=== PATIENT | female | born 1990 | race American Indian/Alaskan Native ===

== ENCOUNTER 2018-08-21 15:59 | Emergency (ER) | payer MEDICAID, OTHER ==
[2018-08-21 16:13] VITALS: BP 145/79
[2018-08-21 17:21] LABS: Hematocrit 23.7 % (30.3-42.9); Hemoglobin 7.1 gm/dl (10.1-14.3); Mean Corpuscular HGB Conc 30 % (30-34); Platelet Count 338 K/mm3 (140-440); Red Blood Count 3.81 M/mm3 (3.65-5.03)
[2018-08-21 17:25] LABS: Mean Corpuscular Volume 62 fl (79-97)
== END 2018-08-21 20:30 | disposition left against medical advice (07) ==
LOC: ED 15:59
DX: D75.9 Disease of blood and blood-forming organs, unspecified (principal); Z53.21 Procedure and treatment not carried out due to patient leaving prior to being seen by health care provider
CPT/HCPCS: 36415; 84703; 85027; 86850; 86900; 86901

== ENCOUNTER 2018-08-25 16:06 | Observation (INO) | payer MEDICAID ==
--- NOTE | 2018-08-25 16:44 | Emergency Department Report ---
Blank Doc - Documentation Documentation: This is a 28-year-old female that presents with dizziness, weakness, and vaginal bleeding for 6 months. This initial assessment/diagnostic orders/clinical plan/treatment(s) is/are subject to change based on patient's health status, clinical progression and re- assessment by fellow clinical providers in the ED. Further treatment and workup at subsequent clinical providers discretion. Patient/guardians urged not to elope from the ED as their condition may be serious if not clinically assessed and managed. Initial orders include: 1- Patient sent to [facility] for further evaluation and treatment 2- labs
[2018-08-25 18:00] LABS: Basophils % (Auto) 0.6 % (0.0-1.8); Eosinophils # (Auto) 0.1 K/mm3 (0.0-0.4); Eosinophils % (Auto) 1.9 % (0.0-4.3); Hematocrit 23.9 % (30.3-42.9); Hemoglobin 7.1 gm/dl (10.1-14.3); Lymphocytes # (Auto) 2.1 K/mm3 (1.2-5.4); Lymphocytes % (Auto) 42.4 % (13.4-35.0); Mean Corpuscular HGB Conc 30 % (30-34); Monocytes # (Auto) 0.5 K/mm3 (0.0-0.8); Monocytes % (Auto) 10.3 % (0.0-7.3); Platelet Count 262 K/mm3 (140-440); Red Blood Count 3.79 M/mm3 (3.65-5.03)
[2018-08-25 18:08] LABS: Mean Corpuscular Volume 63 fl (79-97); Red Cell Distribution Width 21.6 % (13.2-15.2)
[2018-08-25 18:27] LABS: BUN/Creatinine Ratio 9; Blood Urea Nitrogen 7 mg/dL (7-17); Calcium 8.4 mg/dL (8.4-10.2); Hemolysis Index 0
[2018-08-25 18:28] LABS: Alanine Aminotransferase 14 units/L (7-56); Albumin 3.8 g/dL (3.9-5)
[2018-08-25 18:31] LABS: Bilirubin,Direct < 0.2 mg/dL (0-0.2)
[2018-08-25 18:32] LABS: Bacteria,Urine 1+ /HPF (Negative); Bilirubin,Urine NEG (Negative); Blood,Urine NEG (Negative); Color,Urine Yellow (Yellow); Mucus,Urine 2+ /HPF; Protein,Urine <15 mg/dL mg/dL (Negative)
[2018-08-25] MEDS ORDERED: MAXIPIME/NS 2 GM/100 ML 2 GM/100 ML BAG IV ONE ×2 (19:54→20:58)
--- NOTE | 2018-08-25 19:55 | Emergency Department Report ---
ED General Adult HPI - General Chief complaint: Weakness Stated complaint: SICK Time Seen by Provider: 08/25/18 16:43 Source: patient Mode of arrival: Ambulatory Limitations: No Limitations - History of Present Illness Initial comments: Patient is a 28-year-old female that is emergency room with worsening dizziness and weakness. Patient states she has anemia due to bleeding for 6 months. Patient states she had transfusion 1 month ago. Patient states she feels lightheaded and dizzy as well as weak. Patient states her symptoms started worsening today. Patient states her bleeding increased today. Patient states she has not seen an SEARCH MARKETING SPECIALIST yet for this. Patient denies pain. Patient denies headache. Patient denies abdominal pain. Patient denies other complaints except for dysuria. Patient states she's had dysuria for 2 days. Patient soha es vaginal discharge. Patient denie fever and chills. Patient states she is going more frequently and it butler when she urinates. -: Sudden Consistency: intermittent Improves with: rest Worsens with: movement Associated Symptoms: weakness. denies: confusion, chest pain, cough, diaphoresis, fever/chills, headaches, loss of appetite, malaise, nausea/vomiting, rash, seizure, shortness of breath, syncope - Related Data Allergies Allergy/AdvReac Type Severity Reaction Status Date / Time No Known Allergies Allergy Unverified 08/21/18 16:02 ED Review of Systems ROS: Stated complaint: SICK Other details as noted in HPI Constitutional: denies: chills, fever Eyes: denies: eye pain, eye discharge, vision change ENT: denies: ear pain, throat pain Respiratory: denies: cough, shortness of breath, wheezing Cardiovascular: denies: chest pain, palpitations Endocrine: no symptoms reported Gastrointestinal: denies: abdominal pain, nausea, diarrhea Genitourinary: denies: urgency, dysuria, discharge Musculoskeletal: denies: back pain, joint swelling, arthralgia Skin: denies: rash, lesions Neurological: as per HPI, weakness. denies: headache, paresthesias Psychiatric: denies: anxiety, depression Hematological/Lymphatic: denies: easy bleeding, easy bruising ED Past Medical Hx - Past Medical History Previous Medical History?: Yes Additional medical history: anemia with transfusion. - Surgical History Past Surgical History?: No - Family History Family history: no significant - Social History Smoking Status: Current Every Day Smoker Substance Use Type: None ED Physical Exam - General Limitations: No Limitations General appearance: alert, in no apparent distress - Head Head exam: Present: atraumatic, normocephalic - Eye Eye exam: Present: normal appearance, PERRL, other (scleral pallor noted) Pupils: Present: normal accommodation - ENT ENT exam: Present: mucous membranes moist - Neck Neck exam: Present: normal inspection - Respiratory Respiratory exam: Present: normal lung sounds bilaterally. Absent: respiratory distress - Cardiovascular Cardiovascular Exam: Present: regular rate, normal rhythm. Absent: systolic murmur, diastolic murmur, rubs, gallop - GI/Abdominal GI/Abdominal exam: Present: soft, normal bowel sounds - Extremities Exam Extremities exam: Present: normal inspection - Back Exam Back exam: Present: normal inspection - Neurological Exam Neurological exam: Present: alert, oriented X3 - Psychiatric Psychiatric exam: Present: normal affect, normal mood - Skin Skin exam: Present: warm, dry, intact, normal color. Absent: rash ED Course Vital Signs 08/25/18 08/25/18 16:43 19:00 Temperature 98 F Pulse Rate 101 H Respiratory 18 19 Rate Blood Pressure 148/79 O2 Sat by Pulse 100 99 Oximetry - Consultations Consultation #1: SEARCH MARKETING SPECIALIST paged. 08/25/18 20:[address] Andino. . Dr. Andino to admit patient 08/25/18 20:22 ED Medical Decision Making - Lab Data Result diagrams: 08/25/18 17:20 08/25/18 17:20 - Medical Decision Making is a 28-year-old female that presents emergency room with chronic vaginal bleeding and worsening dizziness and weakness. Patient found be tachycardic and anemic. Patient given 1 unit of packed red blood cells. Patient was admitted to the SEARCH MARKETING SPECIALIST service. Accepting physician is Dr. Andino. - Differential Diagnosis vaginal bleeding. Anemia. Critical Care Time: Yes Critical care attestation.: If time is entered above; I have spent that time in minutes in the direct care of this critically ill patient, excluding procedure time. Critical Care Time: 35 minutes ED Disposition Clinical Impression: Severe anemia, Vaginal bleeding, Dysuria, Weakness, Dizziness, Tachycardia Anemia Qualifiers: Anemia type: unspecified type Qualified Code(s): D64.9 - Anemia, unspecified UTI (urinary tract infection) Qualifiers: Urinary tract infection type: acute cystitis Hematuria presence: with hematuria Qualified Code(s): N30.01 - Acute cystitis with hematuria Disposition: -09 OP ADMIT IP TO THIS HOSP Is pt being admited?: Yes Does the pt Need Aspirin: No Condition: Critical Time of Disposition: 20:38
[2018-08-25] MEDS ORDERED: NACL 0.9% 500 ML 500 ML IV ONE (20:22)
[2018-08-25] MEDS ORDERED: COLACE PO PRN (20:24)
[2018-08-25] MEDS ORDERED: TYLENOL PO ONE (20:28)
[2018-08-25] MEDS ORDERED: BENADRYL PO ONE ×2 (20:28→21:00)
[2018-08-25] MEDS ORDERED: TYLENOL ONE (20:58)
--- NOTE | 2018-08-25 21:07 | History and Physical Report ---
History of Present Illness Date of examination: 08/25/18 Date of admission: 08/25/18 20:25 Chief complaint: Dizziness and blurry vision, excessive and frequent irregular menstruation History of present illness: This is a 28 year old female, with a history excessive and frequent irregular menstruation since menarche at the age of 11. She states she's was bleeding x 7months that stopped 2weeks ago. No bleeding now. She received 2uPRBC in [place] ~2months ago for a hgb of 6. She was scheduled to be evaluated by a axle bearing polisher in [place] however she recently moved here. She presented to the ED with dizziness and blurry vision. She was found to have a hgb 7.1. She admitted now per ED MD request for PRBC transfusion Past History Past Medical History: other (sickle cell traint, anemia and PRBC transfusion, abnormal pap 2006, last pap 2018 normal. No h/o STD, using condoms to prevent ) Past Surgical History: No surgical history Social history: smoking Medications and Allergies Allergies Allergy/AdvReac Type Severity Reaction Status Date / Time No Known Allergies Allergy Unverified 08/21/18 16:02 Active Meds: Active Medications Docusate Sodium (Colace) 100 mg PO Q12H PRN PRN Reason: Constipation Multivitamins/Iron/Calcium ( Vitamin) 1 each PO QDAY VY Review of Systems All systems: negative Genitourinary Female: dysuria Exam - Constitutional Vitals: Temp Pulse Resp BP Pulse Ox 98 F 101 H 19 148/79 99 08/25/18 16:43 08/25/18 16:43 08/25/18 19:00 08/25/18 16:43 08/25/18 19:00 Results - Labs CBC & Chem 7: 08/25/18 17:20 08/25/18 17:20 Labs: Abnormal lab results 08/25/18 08/25/18 08/25/18 Range/Units 17:20 17:20 17:20 Hgb 7.1 L (10.1-14.3) gm/dl Hct 23.9 L (30.3-42.9) % MCV 63 L (79-97) fl MCH 19 L (28-32) pg RDW 21.6 H (13.2-15.2) % Lymph % (Auto) 42.4 H (13.4-35.0) % Kern % (Auto) 10.3 H (0.0-7.3) % Glucose 102 H (65-100) mg/dL Albumin (3.9-5) g/dL Urine WBC (Auto) (0.0-6.0) /HPF Crossmatch See Detail 08/25/18 08/25/18 Range/Units 17:20 17:59 Hgb (10.1-14.3) gm/dl Hct (30.3-42.9) % MCV (79-97) fl MCH (28-32) pg RDW (13.2-15.2) % Lymph % (Auto) (13.4-35.0) % Kern % (Auto) (0.0-7.3) % Glucose (65-100) mg/dL Albumin 3.8 L (3.9-5) g/dL Urine WBC (Auto) 24.0 H (0.0-6.0) /HPF Crossmatch Assessment and Plan - Patient Problems (1) Anemia Current Visit: Yes Status: Chronic Qualifiers: Iron deficiency anemia type: chronic blood loss Qualified Code(s): D64.9 - Anemia, unspecified Plan to address problem: Symptomatic Admitted now for PRBC transfusion Kellie ANDREA request (2) Dizziness Current Visit: Yes Status: Acute (3) Dysuria Current Visit: Yes Status: Acute (4) Excessive and frequent menstruation with irregular cycle Current Visit: Yes Status: Chronic Plan to address problem: Encouraged her to f/u with axle bearing polisher for evaluation (5) Morbid obesity Current Visit: Yes Status: Chronic
[2018-08-26] MEDS ORDERED: NACL 0.9% 500 ML 500 ML ONE (01:18)
--- NOTE | 2018-08-26 07:49 | Discharge Summary ---
Providers - Providers Date of Admission: 08/25/18 20:25 Date of discharge: 08/26/18 (pt agrees with d/c) Attending physician: LUIS MIGUEL SANCHEZ [facility] Reason for admission: prolong vaginal bleeding; anemia Condition: Good Procedures: Blood transfusion X 1 unit Hospital course: uncomplicated Disposition: DC-01 TO HOME OR SELFCARE Core Measure Documentation - Palliative Care Palliative Care/ Comfort Measures: Not Applicable - Core Measures Any of the following diagnoses?: none - VTE Discharge Requirements Deep Vein Thrombosis/Pulmonary Embolism Present on Admission: No Has pt received <5 days of overlap therapy or INR<2.0: No Anticoagulant overlap therapy prescribed at discharge: No Contraindication No Overlap Therapy order at DC: Not Indicated - Acute DC Discharge Requirements Aspirin at discharge: No Reason for no aspirin on DC: Medical contraindication KAITLYNN/ARB for LVSD if EF <40%: Not Applicable Reason for no KAITLYNN/ARB: Medical contraindication Beta nazario at discharge: No Reason for no beta nazario on DC: Medical contraindication Statin for LDL = or >100 mg/dl on DC: Not Applicable Reason for no statin on DC: Medical contraindication Exam - Constitutional Vitals: Temp Pulse Resp BP Pulse Ox 97.7 F 78 20 107/66 100 08/26/18 05:00 08/26/18 05:15 08/26/18 05:00 08/26/18 05:15 08/26/18 05:15 General appearance: Present: no acute distress, well-nourished - EENT Eyes: Present: PERRL ENT: hearing intact, clear oral mucosa - Neck Neck: Present: supple, normal ROM - Respiratory Respiratory effort: normal Respiratory: bilateral: CTA - Cardiovascular Heart Sounds: Present: S1 & S2. Absent: rub, click - Extremities Extremities: pulses symmetrical, No edema Peripheral Pulses: within normal limits - Abdominal General gastrointestinal: Present: soft, non-tender, non-distended, normal bowel sounds Female genitourinary: Present: normal - Rectal Rectal Exam: deferred - Integumentary Integumentary: Present: clear, warm, dry - Musculoskeletal Musculoskeletal: gait normal, strength equal bilaterally - Psychiatric Psychiatric: appropriate mood/affect, intact judgment & insight - Neurologic Neurologic: CNII-XII intact, moves all extremities Plan Activity: advance as tolerated Weight Bearing Status: Weight Bear as Tolerated Diet: regular, advance as tolerated Special Instructions: no heavy lifting Follow up with: SUNI KENNYSTOCKTON MD MADDY [Primary Care Provider] - 7 Days LUIS MIGUEL SANCHEZ MD [Staff Physician] - 7 Days (Call [phone] to schedule appointment for follow up)
[2018-08-26 09:52] LABS: Hematocrit 24.8 % (30.3-42.9); Hemoglobin 7.5 gm/dl (10.1-14.3)
[2018-08-26] MEDS ORDERED: BACTRIM DS PO SCH (10:00)
[2018-08-26] MEDS ORDERED: PRENATAL VITAMIN PO SCH (10:00)
[2018-08-26 10:06] VITALS: BP 110/70
== END 2018-08-26 10:00 | disposition home or self-care (01) ==
LOC: ED 16:06 → OB 20:25
PROVIDERS: ADMIT Obstetrics & Gynecology; ATTEND Obstetrics & Gynecology
DX: D64.9 Anemia, unspecified (principal); N92.1 Excessive and frequent menstruation with irregular cycle; R42 Dizziness and giddiness; R30.0 Dysuria; E66.01 Morbid (severe) obesity due to excess calories; F17.200 Nicotine dependence, unspecified, uncomplicated; Z79.899 Other long term (current) drug therapy
CPT/HCPCS: 36415; 36430; 80048; 80076; 81001; 83690; 84703; 85014; 85018; 85025; 86850; 86900; 86901; 86920; 87076; 87086; 87186; 96365; 99291; G0378; J0692; J7040; P9016

== ENCOUNTER 2019-01-29 11:20 | Emergency (ER) | payer MEDICAID ==
[2019-01-29 11:29] VITALS: BP 111/65
[2019-01-29 11:49] LABS: HCG Qualitative,Urine Negative (Negative)
[2019-01-29] MEDS ORDERED: BUTALB/ACETAMINOPHEN/CAFFEINE TAB PO ONE (12:35)
--- NOTE | 2019-01-29 13:17 | Emergency Department Report ---
ED General Adult HPI - General Chief complaint: Headache Stated complaint: HEAD PAIN Time Seen by Provider: 01/29/19 12:20 Source: patient Mode of arrival: Ambulatory Limitations: No Limitations - History of Present Illness Initial comments: Patient is a 28-year-old female who presents with headache that occurred today patient states the headache is severe its located in the middle of her head nothing makes the headache better nothing makes it worse. Patient denies having any nausea or vomiting. Patient states that she has not been able to get much sleep because of the headache. Severity scale (0 -10): 10 - Related Data Previous Rx's Medication Instructions Recorded Last Taken Type Butalb/Acetaminophen/Caffeine 1 cap PO Q8HR PRN #24 cap 01/29/19 Unknown Rx [Fioricet 50-300-40 mg CAP] Allergies Allergy/AdvReac Type Severity Reaction Status Date / Time No Known Allergies Allergy Unverified 08/21/18 16:02 ED Review of Systems ROS: Stated complaint: HEAD PAIN Other details as noted in HPI Constitutional: denies: chills, fever Eyes: denies: eye pain, eye discharge, vision change ENT: denies: ear pain, throat pain Respiratory: denies: cough, shortness of breath, wheezing Cardiovascular: denies: chest pain, palpitations Endocrine: no symptoms reported Gastrointestinal: denies: abdominal pain, nausea, diarrhea Genitourinary: denies: urgency, dysuria, discharge Musculoskeletal: denies: back pain, joint swelling, arthralgia Skin: denies: rash, lesions Neurological: headache. denies: weakness, paresthesias Psychiatric: denies: anxiety, depression Hematological/Lymphatic: denies: easy bleeding, easy bruising ED Past Medical Hx - Past Medical History Hx Hypertension: Yes Additional medical history: anemia with transfusion. - Surgical History Past Surgical History?: No - Social History Smoking Status: Current Every Day Smoker Substance Use Type: Alcohol - Medications Home Medications: Home Medications Medication Instructions Recorded Confirmed Last Taken Type Butalb/Acetaminophen/Caffeine 1 cap PO Q8HR PRN #24 cap 01/29/19 Unknown Rx [Fioricet 50-300-40 mg CAP] ED Physical Exam - General Limitations: No Limitations General appearance: alert, in no apparent distress - Head Head exam: Present: atraumatic, normocephalic - Eye Eye exam: Present: normal appearance - ENT ENT exam: Present: mucous membranes moist - Neck Neck exam: Present: normal inspection - Respiratory Respiratory exam: Present: normal lung sounds bilaterally. Absent: respiratory distress - Cardiovascular Cardiovascular Exam: Present: regular rate, normal rhythm. Absent: systolic murmur, diastolic murmur, rubs, gallop - GI/Abdominal GI/Abdominal exam: Present: soft, normal bowel sounds - Extremities Exam Extremities exam: Present: normal inspection - Back Exam Back exam: Present: normal inspection - Neurological Exam Neurological exam: Present: alert, oriented X3 - Psychiatric Psychiatric exam: Present: normal affect, normal mood - Skin Skin exam: Present: warm, dry, intact, normal color. Absent: rash ED Course Vital Signs 01/29/19 01/29/19 11:22 11:30 Temperature 100.4 F H Pulse Rate 112 H Respiratory 15 Rate Blood Pressure 111/65 O2 Sat by Pulse 98 Oximetry ED Medical Decision Making - Medical Decision Making Medical diagnosis: Tension headache Differential medical diagnosis: Migraine headache, cluster headache I will give patient oral Fioricet and will reevaluate the patient. Patient is feeling better after the Fioricet I will discharge patient home with Fioricet. Patient agrees with plan additional verbal discharge instructions were given. Critical care attestation.: If time is entered above; I have spent that time in minutes in the direct care of this critically ill patient, excluding procedure time. ED Disposition Clinical Impression: Tension headache Disposition: DC-01 TO HOME OR SELFCARE Is pt being admited?: No Does the pt Need Aspirin: No Condition: Stable Instructions: Tension Headache (ED) Prescriptions: Butalb/Acetaminophen/Caffeine [Fioricet 50-300-40 mg CAP] 1 cap PO Q8HR PRN #24 cap PRN Reason: Headache Forms: Accompanied Note
== END 2019-01-29 14:04 | disposition home or self-care (01) ==
LOC: ED 11:20
DX: G44.209 Tension-type headache, unspecified, not intractable (principal); I10 Essential (primary) hypertension; F17.200 Nicotine dependence, unspecified, uncomplicated
CPT/HCPCS: 81025

== ENCOUNTER 2019-02-01 00:49 | Emergency (ER) | payer MEDICAID ==
[2019-02-01] MEDS ORDERED: diphenhydrAMINE 25 MG CAP PO ONE (03:02)
[2019-02-01] MEDS ORDERED: KETOROLAC 30 MG/1 ML INJ IM ONE (03:02)
[2019-02-01] MEDS ORDERED: BUTALB/ACETAMINOPHEN/CAFFEINE TAB PO ONE (03:02)
--- NOTE | 2019-02-01 05:29 | Emergency Department Report ---
ED Headache HPI - General Chief Complaint: Headache Stated Complaint: CONFUSED W/HEADACHE POSS FEVER Source: patient Exam Limitations: no limitations - History of Present Illness Initial Comments: Patient is a 28-year-old -[place] female with no past medical history presents to the ED with complaint of acute onset persistent frontal headache with pressure, nasal and sinus congestion and dry cough for the last 1 week. Patient denies dizziness, sore throat, nausea, vomiting, chest pain, shortness of breath, change in vision, syncope, seizures, neck pain, fever and chills or abdominal pain, dysuria or urinary frequency and urgency. Patient was treated for the same about 3 days ago and has been taking hydrocodone for the same with no relief. Timing/Duration: 1 week Quality: severe, sharp Head Injury Location: frontal Recent Head Trauma: no recent headache/trauma Associated Symptoms: denies symptoms, nasal congestion, nasal drainage, sinus infection. denies: confusion, fatigue, fever/chills, flushing, loss of consciousness, nausea/vomiting, numbness in legs/feet, seizures, stiff neck, vision changes, weakness Allergies/Adverse Reactions: Allergies No Known Allergies Allergy (Unverified 08/21/18 16:02) Home Medications: Ambulatory Orders Butalb/Acetaminophen/Caffeine [Fioricet 50-300-40 mg CAP] 1 cap PO Q8HR PRN #24 cap 01/29/19 Amoxicillin [Trimox CAP] 500 mg PO Q8H #30 capsule 02/01/19 Butalb/Acetamin/Caff 50-325-40 [Fioricet 50-325-40] 1 tab PO Q6HR PRN #15 tab 02/01/19 Ketorolac [Toradol] 10 mg PO Q8H PRN #20 tablet 02/01/19 Ondansetron [Zofran Odt] 4 mg PO Q6HR PRN #15 tab.rapdis 02/01/19 ED Review of Systems ROS: Stated complaint: CONFUSED W/HEADACHE POSS FEVER Other details as noted in HPI Constitutional: denies: chills, fever Eyes: denies: eye pain, eye discharge, vision change ENT: congestion. denies: ear pain, throat pain Respiratory: cough. denies: shortness of breath, wheezing Cardiovascular: denies: chest pain, palpitations Endocrine: no symptoms reported Gastrointestinal: denies: abdominal pain, nausea, diarrhea Genitourinary: denies: urgency, dysuria, discharge Musculoskeletal: denies: back pain, joint swelling, arthralgia Skin: denies: rash, lesions Neurological: headache. denies: weakness, paresthesias Psychiatric: denies: anxiety, depression Hematological/Lymphatic: denies: easy bleeding, easy bruising ED Past Medical Hx - Past Medical History Previous Medical History?: Yes Hx Hypertension: Yes Additional medical history: anemia with transfusion. - Surgical History Past Surgical History?: No - Social History Smoking Status: Current Every Day Smoker Substance Use Type: None - Medications Home Medications: Home Medications Medication Instructions Recorded Confirmed Last Taken Type Butalb/Acetaminophen/Caffeine 1 cap PO Q8HR PRN #24 cap 01/29/19 Unknown Rx [Fioricet 50-300-40 mg CAP] Amoxicillin [Trimox CAP] 500 mg PO Q8H #30 capsule 02/01/19 Unknown Rx Butalb/Acetamin/Caff 50-325-40 1 tab PO Q6HR PRN #15 tab 02/01/19 Unknown Rx [Fioricet 50-325-40] Ketorolac [Toradol] 10 mg PO Q8H PRN #20 tablet 02/01/19 Unknown Rx Ondansetron [Zofran Odt] 4 mg PO Q6HR PRN #15 tab.rapdis 02/01/19 Unknown Rx ED Physical Exam - General Limitations: No Limitations General appearance: alert, in no apparent distress - Head Head exam: Present: atraumatic, normocephalic, normal inspection - Eye Eye exam: Present: normal appearance, PERRL, EOMI Pupils: Present: normal accommodation - ENT ENT exam: Present: normal orophraynx, mucous membranes moist, TM's normal bilaterally, normal external ear exam, other (grossly congested nasal passages; palpable frontal sinus tenderness) - Neck Neck exam: Present: normal inspection, full ROM - Respiratory Respiratory exam: Present: normal lung sounds bilaterally. Absent: respiratory distress, wheezes, rales, rhonchi - Cardiovascular Cardiovascular Exam: Present: regular rate, normal rhythm, normal heart sounds. Absent: systolic murmur, diastolic murmur, rubs, gallop - GI/Abdominal GI/Abdominal exam: Present: soft, normal bowel sounds. Absent: tenderness, guarding, hyperactive bowel sounds - Extremities Exam Extremities exam: Present: normal inspection, full ROM, normal capillary refill - Back Exam Back exam: Present: normal inspection, full ROM. Absent: muscle spasm, paraspinal tenderness, vertebral tenderness - Neurological Exam Neurological exam: Present: alert, oriented X3, CN II-XII intact, normal gait, reflexes normal - Psychiatric Psychiatric exam: Present: normal affect, normal mood - Skin Skin exam: Present: warm, dry, intact, normal color. Absent: rash ED Course Vital Signs 02/01/19 02/01/19 02/01/19 01:17 03:30 03:31 Temperature 99.4 F Pulse Rate 100 H Respiratory 18 20 20 Rate Blood Pressure 128/83 O2 Sat by Pulse 99 Oximetry - Reevaluation(s) Reevaluation #1: 02/01/19 05:30 This is a 28-year-old female who presented to the ED with persistent frontal sinus headache with nasal and sinus congestion. In the ED, a shunt is alert and oriented 3 and is not in distress, appears groggy and sleeping the physical exam. Patient was treated for headache and on reevaluation, patient's headache improved significantly with medications although the patient has been sleeping throughout her ED stay. Patient was discharged home on antibiotics and pain medications and advised to follow-up with her primary care physician in 7-10 days for reevaluation or return to the ED immediately if symptoms get worse ED Medical Decision Making - Medical Decision Making This is a 28-year-old female who presented to the ED with persistent frontal sinus headache with nasal and sinus congestion. In the ED, a shunt is alert and oriented 3 and is not in distress, appears groggy and sleeping the physical exam. Patient was treated for headache and on reevaluation, patient's headache improved significantly with medications although the patient has been sleeping throughout her ED stay. Patient was discharged home on antibiotics and pain medications and advised to follow-up with her primary care physician in 7-10 days for reevaluation or return to the ED immediately if symptoms get worse - Differential Diagnosis sinusitis; sinus headache, acute URI; Viral illness Critical care attestation.: If time is entered above; I have spent that time in minutes in the direct care of this critically ill patient, excluding procedure time. ED Disposition Clinical Impression: Sinus headache Acute frontal sinusitis Qualifiers: Recurrence: non-recurrent Qualified Code(s): J01.10 - Acute frontal sinusitis, unspecified Disposition: CT- TO HOME OR SELFCARE Is pt being admited?: No Does the pt Need Aspirin: No Condition: Stable Instructions: Acute Bacterial Rhinosinusitis (ED), Acute Headache (ED) Additional Instructions: Take medication with food, drink plenty of fluids and follow-up with your primary care physician in 5-7 days for reevaluation. Return to the ED immediately if symptoms get worse. Prescriptions: Butalb/Acetamin/Caff 50-325-40 [Fioricet 50-325-40] 1 tab PO Q6HR PRN #15 tab PRN Reason: Headache Ketorolac [Toradol] 10 mg PO Q8H PRN #20 tablet PRN Reason: Pain Amoxicillin [Trimox CAP] 500 mg PO Q8H #30 capsule Ondansetron [Zofran Odt] 4 mg PO Q6HR PRN #15 tab.rapdis PRN Reason: Nausea Referrals: PRIMARY CARE, [Primary Care Provider] - 3-5 Days Time of Disposition: 05:26 Print Language: SLOVENIAN
[2019-02-01 06:52] VITALS: BP 129/79
== END 2019-02-01 06:00 | disposition home or self-care (01) ==
LOC: ED 00:49
DX: J01.10 Acute frontal sinusitis, unspecified (principal); I10 Essential (primary) hypertension; F17.200 Nicotine dependence, unspecified, uncomplicated; Z79.899 Other long term (current) drug therapy
CPT/HCPCS: 96372; 99282; J1885

== ENCOUNTER 2019-06-21 17:39 | Inpatient (IN) | payer MEDICAID, OTHER ==
[2019-06-21 20:24] LABS: Basophils % (Auto) 0.5 % (0.0-1.8); Eosinophils # (Auto) 0.1 K/mm3 (0.0-0.4); Eosinophils % (Auto) 2.2 % (0.0-4.3); Hematocrit 40.6 % (30.3-42.9); Hemoglobin 13.3 gm/dl (10.1-14.3); Lymphocytes # (Auto) 2.1 K/mm3 (1.2-5.4); Lymphocytes % (Auto) 47.5 % (13.4-35.0); Mean Corpuscular HGB Conc 33 % (30-34); Mean Corpuscular Volume 77 fl (79-97); Monocytes # (Auto) 0.5 K/mm3 (0.0-0.8); Monocytes % (Auto) 10.1 % (0.0-7.3); Platelet Count 267 K/mm3 (140-440); Red Blood Count 5.26 M/mm3 (3.65-5.03)
[2019-06-21 20:25] LABS: Red Cell Distribution Width 20.1 % (13.2-15.2)
[2019-06-21 20:36] LABS: INR 0.96 (0.87-1.13); Partial Thromboplastin Time 34.3 Sec. (24.2-36.6)
[2019-06-21 20:44] LABS: Alanine Aminotransferase 11 units/L (7-56); Albumin 4.2 g/dL (3.9-5); BUN/Creatinine Ratio 18; Blood Urea Nitrogen 11 mg/dL (7-17); Calcium 9.6 mg/dL (8.4-10.2); Hemolysis Index 40
--- NOTE | 2019-06-21 22:25 | Emergency Department Report ---
<VIRGINIA OSMAN - Last Filed: 06/21/19 22:19> ED General Adult HPI - General Chief complaint: Neuro Symptoms/Deficit Stated complaint: VISUAL DISTURBANCE Time Seen by Provider: 06/21/19 18:49 Source: patient, EMS Mode of arrival: Stretcher Limitations: No Limitations - History of Present Illness Initial comments: Patient presents to the emergency department with a chief complaint of left hearing loss and left blurry vision. 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 Patient states while she was in the coma she had an acute stroke and bilateral blood clots of the lungs. Patient states she is off of her anticoagulation due to not having a follow-up since returning from [place]. Patient states that 3 weeks ago she went to [place] to get rehab and was staying with family but that did not work out well. Patient states she was seen at [facility] and had negative MRIs and CTs of the head that only showed the previous stroke. Patient states that after her coma she had decreased vision in both of her eyes but her vision improved and this morning she woke up with blurry vision in the left eye. Patient states that her hearing also decreased in the left ear today. She states that she has had issues with hearing since waking up from the coma but today the vision in her left ear is definitely worse than normal. -: Sudden Severity scale (0 -10): 0 Consistency: constant Improves with: none Worsens with: none Associated Symptoms: denies other symptoms Treatments Prior to Arrival: none - Related Data Home Medications Medication Instructions Recorded Confirmed Last Taken AtorvaSTATin [Lipitor] 40 mg PO QHS 06/21/19 06/21/19 Unknown Ferrous Sulfate [Iron 325 MG] 325 mg PO QDAY 06/21/19 06/21/19 Unknown amLODIPine [Norvasc] 10 mg PO DAILY 06/21/19 06/21/19 Unknown carvediloL [Coreg] 12.5 mg PO BID 06/21/19 06/21/19 Unknown Allergies Allergy/AdvReac Type Severity Reaction Status Date / Time No Known Allergies Allergy Unverified 08/21/18 16:02 ED Review of Systems Constitutional: denies: chills, fever Eyes: vision change. denies: eye pain, eye discharge ENT: denies: ear pain, throat pain Respiratory: denies: cough, shortness of breath, wheezing Cardiovascular: denies: chest pain, palpitations Endocrine: no symptoms reported Gastrointestinal: denies: abdominal pain, nausea, diarrhea Genitourinary: denies: urgency, dysuria, discharge Musculoskeletal: denies: back pain, joint swelling, arthralgia Skin: denies: rash, lesions Neurological: denies: headache, weakness, paresthesias Psychiatric: denies: anxiety, depression Hematological/Lymphatic: denies: easy bleeding, easy bruising ED Past Medical Hx - Past Medical History Previous Medical History?: Yes Hx Hypertension: Yes Additional medical history: anemia with transfusion. - Social History Smoking Status: Former Smoker Substance Use Type: None - Medications Home Medications: Home Medications Medication Instructions Recorded Confirmed Last Taken Type AtorvaSTATin [Lipitor] 40 mg PO QHS 06/21/19 06/21/19 Unknown History Ferrous Sulfate [Iron 325 MG] 325 mg PO QDAY 06/21/19 06/21/19 Unknown History amLODIPine [Norvasc] 10 mg PO DAILY 06/21/19 06/21/19 Unknown History carvediloL [Coreg] 12.5 mg PO BID 06/21/19 06/21/19 Unknown History ED Physical Exam - General Limitations: No Limitations General appearance: alert, in no apparent distress - Head Head exam: Present: atraumatic, normocephalic - Eye Eye exam: Present: normal appearance, PERRL, EOMI - ENT ENT exam: Present: mucous membranes moist, other (Tracheostomy scar of the neck) - Neck Neck exam: Present: normal inspection - Respiratory Respiratory exam: Present: normal lung sounds bilaterally. Absent: respiratory distress - Cardiovascular Cardiovascular Exam: Present: regular rate, normal rhythm. Absent: systolic murmur, diastolic murmur, rubs, gallop - GI/Abdominal GI/Abdominal exam: Present: soft, normal bowel sounds. Absent: distended, tenderness - Extremities Exam Extremities exam: Present: normal inspection - Back Exam Back exam: Present: normal inspection - Neurological Exam Neurological exam: Present: alert, oriented X3, CN II-XII intact. Absent: motor sensory deficit - Psychiatric Psychiatric exam: Present: normal affect, normal mood - Skin Skin exam: Present: warm, dry, intact, normal color. Absent: rash ED Medical Decision Making - Lab Data Result diagrams: 06/21/19 20:06 06/21/19 20:06 ED Disposition Clinical Impression: Vision blurred CVA (cerebral vascular accident) Qualifiers: CVA mechanism: unspecified Qualified Code(s): I63.9 - Cerebral infarction, unspecified Disposition: DC-09 OP ADMIT IP TO THIS HOSP Condition: Stable <DEB LOVE - Last Filed: 06/22/19 00:32> ED Review of Systems ROS: Stated complaint: VISUAL DISTURBANCE Other details as noted in HPI ED Course Vital Signs 06/21/19 06/21/19 06/21/19 18:25 19:40 20:00 Temperature 97.8 F 98.3 F Pulse Rate 77 73 72 Respiratory 13 12 15 Rate Blood Pressure 118/66 119/72 Blood Pressure 119/72 [Left] O2 Sat by Pulse 98 99 99 Oximetry 06/21/19 06/21/19 06/21/19 21:00 23:00 23:30 Temperature Pulse Rate 73 79 Respiratory 12 18 17 Rate Blood Pressure 115/73 112/64 112/64 Blood Pressure [Left] O2 Sat by Pulse 99 99 98 Oximetry - Reevaluation(s) Reevaluation #1: 06/22/19 00:27 - NIHSS Assessment Interval: Baseline 1a. Level of Consciousness: alert/keenly responsive 1b. LOC Questions: answers both correctly 1c. LOC Commands: performs tasks correctly 2. Best Gaze: normal 3. Visual: no visual loss 4. Facial Palsy: partial paralysis 5b. Motor Arm Right: no drift 5a. Motor Arm Left: no drift 6a. Motor Leg Left: no drift 6b. Motor Leg Right: drift 7. Limb Ataxia: absent 8. Sensory: normal 9. Best Language: no aphasia 10. Dysarthria: mild/moderate dysarthria 11. Extinction/Inattention: no abnormality Total Score: 4 Stroke Severity: Minor Stroke ED Medical Decision Making - Lab Data Result diagrams: 06/21/19 20:06 06/21/19 20:06 Lab Results 06/21/19 06/21/19 06/21/19 Range/Units 20:06 20:06 20:06 WBC 4.5 (4.5-11.0) K/mm3 RBC 5.26 H (3.65-5.03) M/mm3 Hgb 13.3 (10.1-14.3) gm/dl Hct 40.6 (30.3-42.9) % MCV 77 L (79-97) fl MCH 25 L (28-32) pg MCHC 33 (30-34) % RDW 20.1 H (13.2-15.2) % Plt Count 267 (140-440) K/mm3 Lymph % (Auto) 47.5 H (13.4-35.0) % [place]ink[place] % (Auto) 10.1 H (0.0-7.3) % Eos % (Auto) 2.2 (0.0-4.3) % Baso % (Auto) 0.5 (0.0-1.8) % Lymph # 2.1 (1.2-5.4) K/mm3 Winkler # 0.5 (0.0-0.8) K/mm3 Eos # 0.1 (0.0-0.4) K/mm3 Baso # 0.0 (0.0-0.1) K/mm3 Seg Neutrophils % 39.7 L (40.0-70.0) % Seg Neutrophils # 1.8 (1.8-7.7) K/mm3 PT 12.9 (12.2-14.9) Sec. INR 0.96 (0.87-1.13) APTT 34.3 (24.2-36.6) Sec. Sodium 142 (137-145) mmol/L Potassium 4.5 (3.6-5.0) mmol/L Chloride 104.1 (98-107) mmol/L Carbon Dioxide 25 (22-30) mmol/L Anion Gap 17 mmol/L BUN 11 (7-17) mg/dL Creatinine 0.6 L (0.7-1.2) mg/dL Estimated GFR > 60 ml/min BUN/Creatinine Ratio 18 % Glucose 92 (65-100) mg/dL Calcium 9.6 (8.4-10.2) mg/dL Total Bilirubin 0.40 (0.1-1.2) mg/dL AST 15 (5-40) units/L ALT 11 (7-56) units/L Alkaline Phosphatase 77 (35-129) units/L Total Protein 7.2 (6.3-8.2) g/dL Albumin 4.2 (3.9-5) g/dL Albumin/Globulin Ratio 1.4 % HCG, Quant (0-4) mIU/mL 06/21/19 Range/Units 20:19 WBC (4.5-11.0) K/mm3 RBC (3.65-5.03) M/mm3 Hgb (10.1-14.3) gm/dl Hct (30.3-42.9) % MCV (79-97) fl MCH (28-32) pg MCHC (30-34) % RDW (13.2-15.2) % Plt Count (140-440) K/mm3 Lymph % (Auto) (13.4-35.0) % Winkler % (Auto) (0.0-7.3) % Eos % (Auto) (0.0-4.3) % Baso % (Auto) (0.0-1.8) % Lymph # (1.2-5.4) K/mm3 Winkler # (0.0-0.8) K/mm3 Eos # (0.0-0.4) K/mm3 Baso # (0.0-0.1) K/mm3 Seg Neutrophils % (40.0-70.0) % Seg Neutrophils # (1.8-7.7) K/mm3 PT (12.2-14.9) Sec. INR (0.87-1.13) APTT (24.2-36.6) Sec. Sodium (137-145) mmol/L Potassium (3.6-5.0) mmol/L Chloride (98-107) mmol/L Carbon Dioxide (22-30) mmol/L Anion Gap mmol/L BUN (7-17) mg/dL Creatinine (0.7-1.2) mg/dL Estimated GFR ml/min BUN/Creatinine Ratio % Glucose (65-100) mg/dL Calcium (8.4-10.2) mg/dL Total Bilirubin (0.1-1.2) mg/dL AST (5-40) units/L ALT (7-56) units/L Alkaline Phosphatase (35-129) units/L Total Protein (6.3-8.2) g/dL Albumin (3.9-5) g/dL Albumin/Globulin Ratio % HCG, Quant < 2 (0-4) mIU/mL - Radiology Data CT HEAD WITHOUT CONTRAST INDICATION: visual issues. TECHNIQUE: All CT scans at this location are performed using CT dose reduction for ALARA by means of automated exposure control. COMPARISON: None available. FINDINGS: HEMORRHAGE: None. EXTRA-AXIAL SPACES: Normal in size and morphology for the patient's age. VENTRICULAR SYSTEM: Normal in size and morphology for the patient's age. BRAIN PARENCHYMA: No acute findings. MIDLINE SHIFT OR HERNIATION: None. ORBITS: Normal as visualized. SOFT TISSUES OF HEAD: Normal. CALVARIUM: Normal. VISUALIZED PARANASAL SINUSES AND MASTOID AIR CELLS: Clear. ADDITIONAL FINDINGS: None. IMPRESSION: 1. No acute intracranial abnormality. Signer Name: Saurabh Tapia MD Signed: 06/21/2019 10:35 PM Workstation Name: [id number] HEAD CT ANGIOGRAM HISTORY: Visual disturbance. Hearing loss. FINDINGS: Contrast-enhanced CT angiographic images of the intracranial circulation were obtained. In addition to the axial images, sagittal and coronal reformatted images were obtained. In addition, 3 plane MIP reconstructions were produced. There is no evidence of abnormality. Normal vascular contours are associated with arterial structures at the level of the skull base and [place] of [place]. There is no evidence of vessel occlusion or malformation. IMPRESSION: No significant abnormality. All CT scans at this location are performed using dose reduction to ALARA by means of automated exposure control. Signer Name: Santiago Malcolm MD Signed: 06/21/2019 11:37 PM Workstation Name: [id number] Patient: ROOPA WAITE R#: [id number] : 1990 Acct:[id number] Age/Sex: 28 / F ADM Date: 06/21/19 Loc: ED Attending Dr: Ordering Physician: VIRGINIA OSMAN MD Date of Service: 06/21/19 Procedure(s): CT angio neck Accession Number(s): [id number] cc: VIRGINIA OSMAN MD NECK CT ANGIOGRAM 06/21/2019 HISTORY: Visual disturbance and hearing loss. FINDINGS: Contrast-enhanced CT angiographic images of the neck were obtained. In addition to the axial images, sagittal and coronal reformatted images were obtained. In addition, 3 plane MIP reconstructions were produced. NASCET like criteria were used in this evaluation. There is no evidence of carotid bifurcation stenosis or abnormality. Normal contours are associated with common and internal carotid arteries bilaterally. Vertebral artery contours are unremarkable. Visualized portions of the aortic arch demonstrate no evidence of abnormality. IMPRESSION: No significant abnormality. All CT scans at this location are performed using dose reduction to ALARA by means of automated exposure control. 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 Patient is been not compliant with her Eliquis secondary to not having adequate follow-up. Patient is presenting with worsening of her left eyes vision. Jessie ent also has some decreased hearing and a left-sided headache. Patient states that her vision and hearing had began to improve after the CVA over the last several weeks however worsened upon waking. Our neurologist have seen the patient and suggest that the patient be admitted in observation status for MRI Critical care attestation.: If time is entered above; I have spent that time in minutes in the direct care of this critically ill patient, excluding procedure time. ED Disposition Is pt being admited?: Yes Does the pt Need Aspirin: No Time of Disposition: 00:32
--- NOTE | 2019-06-21 22:39 | Cat Scan Report ---
CT HEAD WITHOUT CONTRAST INDICATION: visual issues. TECHNIQUE: All CT scans at this location are performed using CT dose reduction for ALARA by means of automated e xposure control. COMPARISON: None available. FINDINGS: HEMORRHAGE: None. EXTRA-AXIAL SPACES: Normal in size and morphology for the patient's age. VENTRICULAR SYSTEM: Normal in size and morphology for the patient's age. BRAIN PARENCHYMA: No acute findings. MIDLINE SHIFT OR HERNIATION: None. ORBITS: Normal as visualized. SOFT TISSUES OF HEAD: Normal. CALVARIUM: Normal. VISUALIZED PARANASAL SINUSES AND MASTOID AIR CELLS: Clear. ADDITIONAL FINDINGS: None. IMPRESSION: 1. No acute intracranial abnormality. Signer Name: Saurabh Tapia MD Signed: 06/21/2019 10:35 PM Workstation Name: [id number]
--- NOTE | 2019-06-21 23:41 | Cat Scan Report ---
HEAD CT ANGIOGRAM HISTORY: Visual disturbance. Hearing loss. FINDINGS: Contrast-enhanced CT angiographic images of the intracranial circulation were obtained. In addition to the axial images, sagittal and coronal reformatted images were obtained. In addition, 3 p hermila MIP reconstructions were produced. There is no evidence of abnormality. Normal vascular contours are associated with arterial structures at the level of the skull base and [place] of [place]. There is no evidence of vessel occlusion or malformation. IMPRESSION: No significant abnormality. All CT scans at this location are performed using dose reduction to ALARA by means of automated expos ure control. Signer Name: Santiago Malcolm MD Signed: 06/21/2019 11:37 PM Workstation Name: [id number]
--- NOTE | 2019-06-21 23:44 | Cat Scan Report ---
NECK CT ANGIOGRAM 06/21/2019 HISTORY: Visual disturbance and hearing loss. FINDINGS: Contrast-enhanced CT angiographic images of the neck were obtained. In addition to the axia l images, sagittal and coronal reformatted images were obtained. In addition, 3 plane MIP reconstruct ions were produced. NASCET like criteria were used in this evaluation. There is no evidence of carotid bifurcation stenosis or abnormality. Normal contours are associated w ith common and internal carotid arteries bilaterally. Vertebral artery contours are unremarkable. Visualized portions of the aortic arch demonstrate no evidence of abnormality. IMPRESSION: No significant abnormality. All CT scans at this location are performed using dose reduction to ALARA by means of automated expos ure control. Signer Name: Santiago Malcolm MD Signed: 06/21/2019 11:39 PM Workstation Name: [id number]
--- NOTE | 2019-06-21 23:49 | Emergency Department Report ---
ED Neuro Deficit HPI - General Chief Complaint: Neuro Symptoms/Deficit Stated Complaint: VISUAL DISTURBANCE Time Seen by Provider: 06/21/19 18:49 Source: patient, EMS Mode of arrival: Stretcher Limitations: No Limitations - History of Present Illness Initial Comments: [facility] TeleNeurology Consult Services STAT The patient was informed the neurology consult would happen via TeleHealth by way of interactive audio and visual telecommunications and consented to receiving care in this manner DATE: June 21, 2019 Impression: The patient is having worsening of symptoms she experienced in her prolonged hospitalization this winter where she had presumed multiple strokes secondary to pulmonary emboli and hypercoagulability. Unfortunately significant details aren't known this sounds like there was some swelling potentially in the posterior fossa. She's been off all blood thinners. Start her on aspirin and she'll need MRI of the brain without contrast. It would be helpful to obtain the records from her prior hospitalization to determine if it was solely stroke or alternate diagnosis as well in terms of the brain infection. Could've been a provoked stroke given the oral contraception that she was on presumably they did a hypercoagulable panel at that time. Would not resume full anticoagulation until a repeat MRI of the brain can be obtained to determine whether or not she had a new ischemic stroke will follow up official read on CT angiogram head and neck. Exam is not consistent with a new large vessel occlusion. Consult inpatient neurology to follow Check fasting lipid panel and hemoglobin A1c physical and occupational therapy evaluation Discussed with primary team CC: left eye blindness dboule vision lefft eye vision loss History of Present Illness: The patient is a complicated young 28-year-old woman who had an extensive hospitalization in January 2019 to April 2019. She apparently was in a coma and suffered some strokes at that time along with bilateral PEs. There is also question of some sort of infection. She is a smoker and was on control at that time. She was supposed to remain on full anticoagulation but has not been compliant she's not had any follow-up with neurology. Two weeks ago she haed a MCKEON and was seen at the [facility] and they did an MRI of her brain but she did not have any new focal complaints at that time. Today she presented for symptoms with waking up with blurry vision in the left eye this morning. He also feels like the hearing is worse on the left side compared to normal. No other infectious symptoms. These are similar to symptoms she had with her stroke but not to this degree. Also has some chronic right-sided weakness from the stroke. She sees double vision also along with this Diagnostic Testing: CT of the head without contrast no acute changes Vital Signs: Temperature is 97.8 respirations 13 pulse 77 blood pressure 118/66 Exam: Mental Status: Awake, alert, oriented Naming: Intact Repetition: Intact Speech: fluent Cranial Nerves:rightfacial droop Pupils: Equal round and reactive to light Extraocular movements: Intact in all cardinal gaze Ptosis: The right eye is slightly wider in opening in the left Visual cortez:she can still see things in the center of her left vision but its blurry in the left eye even in central vision with limited peripheral cortez in the left eye seems to be intact in the right eye she does see some horizontal diplopia with both eyes open hearing in left ear very imparied absent Facial sensation: Intact to pin and light touch Facial movements: right facial droop Motor Exam: drift in RLE right hand finger extensors and putter in weak Sensory Exam: Light touch: Intact Pinprick: Intact Coordination: Finger to nose: Intact Heel to kessler: Intact NIH =2 for right facial droop, RLE drifft=1, there is vision loss not in typ ical homonymous pattern however. mid slurred speech =1 total =4 Medical Decision Making: - Extensive number of diagnosis or management options are considered above. - Extensive amount of complex data reviewed. - High risk of complication and/or morbidity or mortality are associated with differential diagnostic considerations above. - There may be uncertain outcome and increased probability of prolonged functional impairment or high probability of severe prolonged functional impairment associated with some of these differential diagnosis. Medical Data Reviewed: 1.Data reviewed include clinical labs, radiology, Medical Tests; 2.Tests results discussed w/performing or interpreting physician; 3.Obtaining/reviewing old medical records; 4.Obtaining case history from another source; 5.Independent review of image, tracing or specimen. Patient was informed the Neurology Consult would happen via telehealth (remote video) and consented to receiving care in this manner. - Related Data Allergies/Adverse Reactions: Allergies Allergy/AdvReac Type Severity Reaction Status Date / Time No Known Allergies Allergy Unverified 08/21/18 16:02 ED Review of Systems ROS: Stated complaint: VISUAL DISTURBANCE Other details as noted in HPI Constitutional: denies: chills, fever Eyes: vision change. denies: eye pain, eye discharge ENT: denies: ear pain, throat pain Respiratory: denies: cough, shortness of breath, wheezing Cardiovascular: denies: chest pain, palpitations Endocrine: no symptoms reported Gastrointestinal: denies: abdominal pain, nausea, diarrhea Genitourinary: denies: urgency, dysuria, discharge Musculoskeletal: denies: back pain, joint swelling, arthralgia Skin: denies: rash, lesions Neurological: denies: headache, weakness, paresthesias Psychiatric: denies: anxiety, depression Hematological/Lymphatic: denies: easy bleeding, easy bruising ED Past Medical Hx - Past Medical History Previous Medical History?: Yes Hx Hypertension: Yes Additional medical history: anemia with transfusion. - Social History Smoking Status: Former Smoker Substance Use Type: None ED Neuro Physical Exam - General Limitations: No Limitations General appearance: alert, in no apparent distress Suspected Stroke: Yes - NIHSS Assessment Interval: Baseline 1a. Level of Consciousness: alert/keenly responsive 1b. LOC Questions: answers both correctly 1c. LOC Commands: performs tasks correctly 2. Best Gaze: normal 3. Visual: no visual loss 4. Facial Palsy: partial paralysis 5b. Motor Arm Right: no drift 5a. Motor Arm Left: no drift 6a. Motor Leg Left: no drift 6b. Motor Leg Right: drift 7. Limb Ataxia: absent 8. Sensory: normal 9. Best Language: no aphasia 10. Dysarthria: mild/moderate dysarthria 11. Extinction/Inattention: no abnormality Total Score: 4 Stroke Severity: Minor Stroke ED Course Vital Signs 06/21/19 06/21/19 18:25 19:40 Temperature 97.8 F 98.3 F Pulse Rate 77 73 Respiratory 13 12 Rate Blood Pressure 118/66 Blood Pressure 119/72 [Left] O2 Sat by Pulse 98 99 Oximetry - Lab Data Result diagrams: 06/21/19 20:06 06/21/19 20:06 Lab Results 06/21/19 06/21/19 06/21/19 Range/Units 20:06 20:06 20:06 WBC 4.5 (4.5-11.0) K/mm3 RBC 5.26 H (3.65-5.03) M/mm3 Hgb 13.3 (10.1-14.3) gm/dl Hct 40.6 (30.3-42.9) % MCV 77 L (79-97) fl MCH 25 L (28-32) pg MCHC 33 (30-34) % RDW 20.1 H (13.2-15.2) % Plt Count 267 (140-440) K/mm3 Lymph % (Auto) 47.5 H (13.4-35.0) % [place] % (Auto) 10.1 H (0.0-7.3) % Eos % (Auto) 2.2 (0.0-4.3) % Baso % (Auto) 0.5 (0.0-1.8) % Lymph # 2.1 (1.2-5.4) K/mm3 [place] # 0.5 (0.0-0.8) K/mm3 Eos # 0.1 (0.0-0.4) K/mm3 Baso # 0.0 (0.0-0.1) K/mm3 Seg Neutrophils % 39.7 L (40.0-70.0) % Seg Neutrophils # 1.8 (1.8-7.7) K/mm3 PT 12.9 (12.2-14.9) Sec. INR 0.96 (0.87-1.13) APTT 34.3 (24.2-36.6) Sec. Sodium 142 (137-145) mmol/L Potassium 4.5 (3.6-5.0) mmol/L Chloride 104.1 (98-107) mmol/L Carbon Dioxide 25 (22-30) mmol/L Anion Gap 17 mmol/L BUN 11 (7-17) mg/dL Creatinine 0.6 L (0.7-1.2) mg/dL Estimated GFR > 60 ml/min BUN/Creatinine Ratio 18 % Glucose 92 (65-100) mg/dL Calcium 9.6 (8.4-10.2) mg/dL Total Bilirubin 0.40 (0.1-1.2) mg/dL AST 15 (5-40) units/L ALT 11 (7-56) units/L Alkaline Phosphatase 77 (35-129) units/L Total Protein 7.2 (6.3-8.2) g/dL Albumin 4.2 (3.9-5) g/dL Albumin/Globulin Ratio 1.4 % HCG, Quant (0-4) mIU/mL 06/21/19 Range/Units 20:19 WBC (4.5-11.0) K/mm3 RBC (3.65-5.03) M/mm3 Hgb (10.1-14.3) gm/dl Hct (30.3-42.9) % MCV (79-97) fl MCH (28-32) pg MCHC (30-34) % RDW (13.2-15.2) % Plt Count (140-440) K/mm3 Lymph % (Auto) (13.4-35.0) % [place] % (Auto) (0.0-7.3) % Eos % (Auto) (0.0-4.3) % Baso % (Auto) (0.0-1.8) % Lymph # (1.2-5.4) K/mm3 [place] # (0.0-0.8) K/mm3 Eos # (0.0-0.4) K/mm3 Baso # (0.0-0.1) K/mm3 Seg Neutrophils % (40.0-70.0) % Seg Neutrophils # (1.8-7.7) K/mm3 PT (12.2-14.9) Sec. INR (0.87-1.13) APTT (24.2-36.6) Sec. Sodium (137-145) mmol/L Potassium (3.6-5.0) mmol/L Chloride (98-107) mmol/L Carbon Dioxide (22-30) mmol/L Anion Gap mmol/L BUN (7-17) mg/dL Creatinine (0.7-1.2) mg/dL Estimated GFR ml/min BUN/Creatinine Ratio % Glucose (65-100) mg/dL Calcium (8.4-10.2) mg/dL Total Bilirubin (0.1-1.2) mg/dL AST (5-40) units/L ALT (7-56) units/L Alkaline Phosphatase (35-129) units/L Total Protein (6.3-8.2) g/dL Albumin (3.9-5) g/dL Albumin/Globulin Ratio % HCG, Quant < 2 (0-4) mIU/mL Critical care attestation.: If time is entered above; I have spent that time in minutes in the direct care of this critically ill patient, excluding procedure time. ED Disposition Clinical Impression: Vision blurred Disposition: DC-09 OP ADMIT IP TO THIS HOSP Is pt being admited?: Yes Condition: Stable Referrals: PRIMARY CARE, [Primary Care Provider] - 3-5 Days
[2019-06-22] MEDS ORDERED: ASPIRIN 325 MG TAB PO ONE (00:22)
--- NOTE | 2019-06-22 01:01 | History and Physical Report ---
History of Present Illness History of present illness: 28-year-old woman history of CVA with residual left-sided weakness, seizure, hypertension, PE comes emergency room for evaluation. Patient stated that started having worsening vision in the left eye and decreased hearing, she had the symptoms with the previous CVA in January 2019. 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 She was started on Eliquis, her last dose was May 31. She is scheduled to continue her Eliquis for another 2 months however she was doing rehab in [place], she was unable to continue living in [place], she did not follow-up with her doctor to get refill for Eliquis. She does not know the dose of her Eliquis. Also complained of chest pain in the high upper chest which she described as a dull pain, intermittent lasting for 7 minutes, intensity 4/10, no radiation, cannot identify exacerbating relieving factors. Patient is being admitted for possible CVA Review Of Systems: Constitutional: no weight loss, fever, chills Ears, eyes, nose, mouth and throat: no nasal congestion, no nasal discharge, no sinus pressure, blurry vision, diplopia Neck: No neck pain or rigidity. Cardiovascular: No palpitations, chest pain Respiratory: No shortness of breath, cough Gastrointestinal: No hematochezia Genitourinary : no dysuria, frequency Musculoskeletal: no muscle ache , joint pain Integumentary: no rash, no pruritis Neurological: no parathesias, focal weakness Endocrine: no cold or heat intolerance, no polyuria or polydipsia Hematologic/Lymphatic: no easy bruising, no easy bleeding, no gland swelling Allergic/Immunologic: no urticaria, no angioedema. PAST MEDICAL HISTORY: CVA with residual left-sided weakness, seizure, hypertension, PE PAST SURGICAL HISTORY: None SOCIAL HISTORY: Denies alcohol, tobacco, drugs FAMILY HISTORY: Hypertension Medications and Allergies Allergies Allergy/AdvReac Type Severity Reaction Status Date / Time No Known Allergies Allergy Unverified 08/21/18 16:02 Home Medications Medication Instructions Recorded Confirmed Last Taken Type AtorvaSTATin [Lipitor] 40 mg PO QHS 06/21/19 06/21/19 Unknown History Ferrous Sulfate [Iron 325 MG] 325 mg PO QDAY 06/21/19 06/21/19 Unknown History amLODIPine [Norvasc] 10 mg PO DAILY 06/21/19 06/21/19 Unknown History carvediloL [Coreg] 12.5 mg PO BID 06/21/19 06/21/19 Unknown History Exam - Physical Exam Narrative exam: Gen. appearance: Patient lying in bed, no apparent distress HEENT: Normocephalic, atraumatic, pupils equally round and reactive to light, extraocular movement intact, and no sclericterus,. No JVD or thyromegaly or nodule,neck supple, no carotid bruit ,mucous membranes moist, no exudate or erythema Heart: S1, S2, regular rate and rhythm Lungs: Clear bilaterally, breathing comfortable Abdomen: Positive bowel sounds, nontender, nondistended, no organomegaly Extremity: no edema, cyanosis, clubbing Skin: No rash, nodules, warm, dry Neuro: speech is fluent, residual left-sided weakness, sensory intact - Constitutional Vitals: Temp Pulse Resp BP Pulse Ox 98.3 F 79 17 112/64 98 06/21/19 19:40 06/21/19 23:30 06/21/19 23:30 06/21/19 23:30 06/21/19 23:30 Results - Labs CBC & Chem 7: 06/21/19 20:06 06/21/19 20:06 Labs: Abnormal lab results 06/21/19 06/21/19 Range/Units 20:06 20:06 RBC 5.26 H (3.65-5.03) M/mm3 MCV 77 L (79-97) fl MCH 25 L (28-32) pg RDW 20.1 H (13.2-15.2) % Lymph % (Auto) 47.5 H (13.4-35.0) % [place] % (Auto) 10.1 H (0.0-7.3) % Seg Neutrophils % 39.7 L (40.0-70.0) % Creatinine 0.6 L (0.7-1.2) mg/dL - Imaging and Cardiology CT Scan - head: report reviewed Assessment and Plan CTA head and neck reviewed Assessment Possible CVA Obtain MRI of the head, echo Do neuro checks, swallow screen Consult neurology, physical, occupational therapy Start aspirin, statin pulmonary emboli/chest pain Patient to obtain the dose of her Eliquis from the pharmacy and will restart Check cardiac enzymes Hypertension Stable DVT prophylaxis
[2019-06-22] MEDS ORDERED: MAGNESIUM HYDROXIDE (MOM) ORAL LIQD UDC PO PRN (03:42)
[2019-06-22] MEDS ORDERED: ONDANSETRON 4 MG/2 ML INJ IV PRN (03:42)
[2019-06-22 05:01] LABS: Creatine Kinase MB < 1.0 ng/mL (0.0-4.0)
[2019-06-22] MEDS ORDERED: SODIUM CHLORIDE 0.9% 1000 ML 1,000 ML IV ONE (06:00)
--- NOTE | 2019-06-22 09:38 | Magnetic Resonance Report ---
NONENHANCED MR SCAN OF THE BRAIN: INDICATION / CLINICAL INFORMATION: Left facial numbness; visual loss in the left eye TECHNIQUE: Multiplanar, multisequence MR images of the brain were noncontrast MRI brain normal brain MR obtained . COMPARISON: CT scan of the head from 06/21/2019 FINDINGS: BRAIN / INTRACRANIAL CONTENTS: No acute ischemia, acute hemorrhage, mass effect, midline shift, or hy drocephalus. In the left lateral medulla, anteriorly and posteriorly, slightly increased T2 signal intensity is se en suppressed in the FLAIR images. No restrictive diffusion or susceptibility changes seen at this le fausto. This is nonspecific. Other consideration is focal punctate areas of chronic ischemia though ther e is normal flow signal in the intradural segment of the left vertebral artery. Joana and midbrain are normal. No focal lesion is seen in the cerebellar hemispheres. In the cerebral hemispheres, periventricular and deep hemispheric white matter are normal. No finding s to suggest demyelinating plaques. Punctate areas of nonsuppressed FLAIR white matter hyperintensiti es seen in the juxtacortical region of the lateral left precentral gyrus. This could be dilated periv ascular space. Lateral ventricles and third ventricle though within normal limits slightly prominent for the age. Hi gh convexity cortical sulci are normal. CRANIOCERVICAL JUNCTION: No significant abnormality. VASCULAR FLOW-VOIDS: No significant abnormality. Focal areas of T2 hyperintensity in the left lateral medulla suppressed in the FLAIR images ORBITS: No significant abnormality of visualized orbits. SINUSES / MASTOIDS: Mucosal thickening is seen in the right mastoid tip air cells and to a lesser deg ree in the right mastoid air cells. Right middle ear is normal. No focal lesion is seen along the cou rse of Eustachian tube on the right side. ADDITIONAL FINDINGS: None. IMPRESSION: No acute infarction or hemorrhage are acute parenchymal lesion No MR findings to suggest demyelinating disease Punctate lesions in the left side of medulla and in the juxtacortical region of lateral left precentr al gyrus Prominent perivascular space Please obtain sagittal and coronal FLAIR images through the entire brain and post gadolinium images Signer Name: Sonny Menchaca MD Signed: 06/22/2019 9:33 AM Workstation Name: [id number]
--- NOTE | 2019-06-22 09:44 | Magnetic Resonance Report ---
MRA HEAD WITHOUT CONTRAST HISTORY: Left facial numbness; loss of vision in the left eye COMPARISON: None. TECHNIQUE: Routine MRA of the head is performed. 3-D/MIP reformats postprocessed. CONTRAST: None. FINDINGS: Intracranial vertebral arteries: No significant abnormality. Left PICA normal Basilar artery: No significant abnormality. Posterior cerebral arteries: No significant abnormality. Intracranial internal carotid arteries: No significant abnormality. Both posterior communicating foreign dennis are contributing to posterior cerebral arteries Anterior cerebral arteries: Left anterior cerebral artery supplies both A2 segments; right A1 segment is hypoplastic Middle cerebral arteries: No significant abnormality Additional findings: None. IMPRESSION: No significant abnormality. Signer Name: Sonny Menchaca MD Signed: 06/22/2019 9:40 AM Workstation Name: [id number]
[2019-06-22] MEDS ORDERED: ASPIRIN 325 MG TAB PO SCH (10:00)
[2019-06-22] MEDS: FERROUS SULFATE 325 MG TAB PO SCH (10:50)
[2019-06-22] MEDS: ENOXAPARIN 40 MG/0.4 ML INJ SUB-Q SCH (10:50)
[2019-06-22 11:31] LABS: Creatine Kinase MB < 1.0 ng/mL (0.0-4.0)
--- NOTE | 2019-06-22 11:47 | Consultation ---
History of Present Illness Consult date: 06/22/19 Reason for Consult: Decreased vision left eye, decreased hearing left ear Chief complaint: Decreased vision left eye, decreased hearing left ear History of present illness: Patient is a 28-year-old woman with a history of hyperlipidemia, hypertension, history of PE, history of CVA with residual right facial droop, decreased vision in the left eye, decreased hearing in right ear. 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 She further states that during that admission, she was found to have bilateral PEs as well as a stroke. She was started on Eliquis reportedly, however stopped taking it earlier this month, as she did not have follow-up with a physician. She had originally moved to [place] for rehab to be close to family, however later left [place] and came back to [place]. She states that initially she had decreased vision in the left eye after awakening from her coma, however this later improved. Yesterday morning, the patient states that s he experienced decreased vision in the left eye, as well as difficulty hearing from the left ear. However, she states that there was notable discharge from the left ear, and after removal of the discharge left ear hearing improved. She was then brought to [facility] for further evaluation. 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) Social history: other (Previous history of smoking) Family history: no significant family history Medications and Allergies Allergies Allergy/AdvReac Type Severity Reaction Status Date / Time No Known Allergies Allergy Unverified 08/21/18 16:02 Home Medications Medication Instructions Recorded Confirmed Last Taken Type AtorvaSTATin [Lipitor] 40 mg PO QHS 06/21/19 06/21/19 Unknown History Ferrous Sulfate [Iron 325 MG] 325 mg PO QDAY 06/21/19 06/21/19 Unknown History amLODIPine [Norvasc] 10 mg PO DAILY 06/21/19 06/21/19 Unknown History carvediloL [Coreg] 12.5 mg PO BID 06/21/19 06/21/19 Unknown History Active Meds: Active Medications Acetaminophen (Tylenol) 650 mg PO Q4H PRN PRN Reason: Pain, Mild (1-3) Aspirin (Aspirin) 325 mg PO QDAY VY Last Admin: 06/22/19 10:50 Dose: 325 mg Documented by: Atorvastatin Calcium (Lipitor) 40 mg PO QHS [facility] Bisacodyl (Dulcolax) 10 mg CO QDAY PRN PRN Reason: Constipation Enoxaparin Sodium (Enoxaparin) 40 mg SUB-Q QDAY [facility] Last Admin: 06/22/19 10:50 Dose: 40 mg Documented by: Ferrous Sulfate (Feosol) 325 mg PO QDAY [facility] Last Admin: 06/22/19 10:50 Dose: 325 mg Documented by: Magnesium Hydroxide (Milk Of Magnesia) 30 ml PO Q4H PRN PRN Reason: Constipation Ondansetron HCl (Zofran) 4 mg IV Q8H PRN PRN Reason: Nausea And Vomiting Sodium Chloride (Sodium Chloride Flush Syringe 10 Ml) 10 ml IV PRN PRN PRN Reason: LINE FLUSH Review of Systems All systems: negative Neurological: loss of vision (Left eye), hearing difficulties (Left ear) Physical Examination - Vital Signs Vital Signs: Vital Signs Temp Pulse Resp BP Pulse Ox 97.8 F 77 13 118/66 98 06/21/19 18:25 06/21/19 18:25 06/21/19 18:25 06/21/19 18:25 06/21/19 18:25 - Physical Exam Narrative exam: Patient is alert, awake, oriented x4, follows complex commands. Mild dysarthria noted, no aphasia noted. PERRL, EOMI, decreased visual field in the left eye to superior/inferior/medial cortez, right eye intact to all visual cortez, tongue midline, bilaterally intact to LT, right facial weakness noted, noted to have significantly decreased hearing in the right ear. 5/5 strength in all extremities. Bilaterally intact light touch. Bilaterally intact to FTN and HTS. 2+ reflexes throughout. - Constitutional General appearance: comfortable - EENT EENT: Present: ATNC, PERRL, mucous membranes moist - Respiratory Respiratory: Present: lungs clear, normal breath sounds - Cardiovascular Cardiovascular: Present: regular rate, normal S1, normal S2 Extremities: Present: no clubbing, cyanosis, no inflammation - Gastrointestinal Gastrointestinal: Present: normoactive bowel sounds, soft, non-tender - Musculoskeletal Musculoskeletal: Present: no fluid collection, no pain - Psychiatric Psychiatric: Present: mood/affect appropriate Results - Laboratory Findings CBC and BMP: 06/21/19 20:06 06/21/19 20:06 Abnormal Lab Findings: Abnormal Labs 06/21/19 06/21/19 06/22/19 20:06 20:06 10:02 RBC 5.26 H MCV 77 L MCH 25 L RDW 20.1 H Lymph % (Auto) 47.5 H [place] % (Auto) 10.1 H Seg Neutrophils % 39.7 L Creatinine 0.6 L Total Creatine Kinase 27 L Assessment and Plan Patient is a 28-year-old woman with a history of hyperlipidemia, hypertension, history of PE, history of CVA with residual decreased hearing in right ear/right facial weakness/decreased vision in left eye, who presents with decreased vision in the left eye, and decreased hearing in left ear. According the patient's clinical findings, it is likely that the patient has an intraocular pathology. MRI did not reveal any evidence of acute ischemic stroke. Alternatively, there may be central retinal artery occlusion, as the patient previously states that she was on Eliquis, however was not taking this over the past few weeks. Plan: 1. Possible central retinal artery occlusion: - MRI brain: No acute abnormality. -Check MRI brain with contrast. - CTA head/neck: No significant stenosis. - CT head: No acute abnormality. -As no acute infarct is noted on MRI, okay to restart patient on Eliquis. Please stop aspirin when starting Eliquis. - Cont. statin. LDL goal <70 - Telemetry monitoring while in house - PT/OT/ST - DVT Ppx: Eliquis -Recommend obtaining outside records from [facility] for better understanding of patient's medical history. -Recommend ENT consult for left ear discharge, as patient was complaining of discharge from the left ear yesterday. 2. Hypertension: - Recommend BP goal of normotension. - Will continue to monitor patient. Thank you for allowing me to take part in the care of this patient. Sotero Sifuentes MD Neurology
--- NOTE | 2019-06-22 13:01 | Event Note ---
Date: 06/23/19 Patient with left eye visual problems. I have seen and examined her. neurology following.
--- NOTE | 2019-06-22 16:52 | Magnetic Resonance Report ---
Contrast-enhanced MR scan of the brain: INDICATION / CLINICAL INFORMATION: left eye visual loss, decreased hearing left ear. TECHNIQUE: Multiplanar, multisequence MR images of the brain were noncontrast MRI brain normal brain MR obtained . COMPARISON: Nonenhanced MRI scan of the brain obtained earlier today FINDINGS: BRAIN / INTRACRANIAL CONTENTS: The graft enhancement is seen in the intracranial optic nerves bilater ally more on the left side and in the optic chiasm. Though there are no other periventricular white m atter contacting the ependymal surface, these could be optic neuritis Multiple sclerosis No abnormal enhancement is seen in the left lateral medulla. Sagittal and coronal FLAIR images confir m this lesion. Though this is nonspecific, possibilities are demyelinating plaque versus chronic isch emia. In addition, in the sagittal FLAIR images, subtle lesions with increased FLAIR signal intensiti es are seen in this cerebellar white matter. Considering the age, cerebellar involution is seen. Volume loss is also seen in the cerebellar vermis . Mammillary bodies are not seen well. Focal lesion in the lateral left precentral gyrus appears to be "y" shaped subcortical focal lesion. No abnormal enhancement is seen at this level also. This is nonspecific. This could be demyelinating plaque also. Graft in the sagittal FLAIR images, increased signal intensity is seen along the inferio r part of the corpus callosum. This could be from demyelinating plaque also. Impression: Enhancement in the intracranial optic nerves and optic chiasm suggesting optic neuritis M ultiple sclerosis Cerebral and cerebellar involutions Increased FLAIR signal intensity in the base of the corpus callosum and in the cerebellar hemispheric white matter; Multiple sclerosis Focal lesion in the lateral aspect of the left precentral gyrus appears to be juxtacortical lesion; M ultiple sclerosis Signer Name: Sonny Menchaca MD Signed: 06/22/2019 4:48 PM Workstation Name: [id number]
[2019-06-22] MEDS: methylPREDNISolone Sod Suc 1,000 MG in SODIUM CHLORIDE 0.9% 250ML 250 ML IV SCH (18:11)
[2019-06-22] MEDS: PANTOPRAZOLE 40 MG TAB PO SCH (18:11)
[2019-06-23 06:28] LABS: Hematocrit 40.9 % (30.3-42.9); Hemoglobin 13.3 gm/dl (10.1-14.3); Mean Corpuscular HGB Conc 33 % (30-34); Mean Corpuscular Volume 78 fl (79-97); Platelet Count 251 K/mm3 (140-440); Red Blood Count 5.24 M/mm3 (3.65-5.03); Red Cell Distribution Width 19.9 % (13.2-15.2)
[2019-06-23 07:00] LABS: BUN/Creatinine Ratio 22; Blood Urea Nitrogen 11 mg/dL (7-17); Calcium 9.4 mg/dL (8.4-10.2); Chol/HDL Ratio 1.77 %; HDL Cholesterol 53 mg/dL (40-59); Hemolysis Index 3; LDL Cholesterol,Direct 42 mg/dL (50-130)
[2019-06-23] MEDS ORDERED: LIDOCAINE (1%) 10 MG/1 ML VIAL 20 ML MDV ONE (07:59)
--- NOTE | 2019-06-23 09:14 | Procedure Note ---
Date of procedure: 06/23/19 Pre-op diagnosis: Optic neuritis Post-op diagnosis: same Procedure: Fluoroscopically-guided lumbar puncture. Findings: See report in PACS. Anesthesia: local Surgeon: XIMENA HARMON Estimated blood loss: none Pathology: list (per primary team orders.) Specimen disposition: to lab Condition: stable Disposition: floor
--- NOTE | 2019-06-23 09:28 | Fluoroscopy Report ---
Lumbar puncture INDICATION : Optic neuritis PROCEDURE: The risks (including but not limited to bleeding, infection, and spinal headache) and chris efits were explained to the patient and informed consent was obtained. A time out procedure was perf ormed. The procedure site was prepped and draped in the usual sterile fashion and lidocaine was used for local anesthesia. Under fluoroscopic guidance, a 22-gauge spinal needle was advanced into the L4-5 interlaminar space. 4 separate collection tubes were used to obtain 2 mL each of CSF. Samples were sent to the lab per e ordering physician specifications for further evaluation. The patient tolerated the procedure well with no complications. IMPRESSION: 1. Successful lumbar puncture as outlined above. Fluoroscopic time: 1.6 minutes Number of fluoroscopic images: 2 Signer Name: Harsh Mahoney MD Signed: 06/23/2019 9:23 AM Workstation Name: [id number]
[2019-06-23] MEDS: ENOXAPARIN 40 MG/0.4 ML INJ SUB-Q SCH (10:18)
[2019-06-23] MEDS: FERROUS SULFATE 325 MG TAB PO SCH (10:18)
[2019-06-23] MEDS: PANTOPRAZOLE 40 MG TAB PO SCH (10:18)
[2019-06-23 11:09] LABS: Basophils CSF 0 %; Total Cells Counted 88 /mm3
[2019-06-23 11:11] LABS: Glucose,CSF 83 mg/dL
[2019-06-23 11:14] LABS: Appearance,CSF Clear; Red Blood Cell,CSF 4 /mm3 (0-0); White Blood Cell,CSF 35 /mm3 (1-10)
--- NOTE | 2019-06-23 11:23 | Consultation ---
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 She denies any recent fever, headaches, syncope, chills, sick contacts. She was on rehab. She has fianc and 6 kids. Denies tobacco, alcohol or drug abuse. Reports previous HIV negative on arrival, MRI suggesting central retinal artery occlusion. CTA head/neck without significant stenosis. CT head without acute abnormality. MRI brain with contrast suggest optic neuritis involving the optic nerves as well as optic chiasm. On arrival, patient was afebrile, normal white blood cell count, normal creatinine. Underwent lumbar puncture, showing CSF with 35 white blood cells, 73% lymphocytes, glucose 83, protein 28. ID consulted for possible viral etiology of optic neuritis. Review of Systems: positive in bold print General: fever, chills, no malaise Cutaneous: rash, pruritus Head: headaches or injury Eyes: Left eye blindness, eye pain, double vision Ears: Left hearing impairment, ear discharge, ringing or hearing loss Nose: nose bleeding, stuffiness Mouth & throat: bleeding gums, horseness, no dental problems, or swollen glands Neck: no pain, node enlargement/lumps, tyroid enlargement or tenderness Respiratory: SOB, no cough, no ARMSTRONG, wheezing, sputum, hemoptysis, pleuritic chest pain Cardiovascular: chest pain, leg edema, cyanosis, ARMSTRONG, orthopnea Musculoskeletal: edema Gastrointestinal: nausea, vomiting, hematemesis, diarrhea, constipation, melena, bright red blood in stools, fecal incontinence, jaundice Genitourinary/Reproductive: frequent urination, dysuria, hematuria, incontinence Neurogical: Chronic right facial droop seizures, headaches, weakness, paresthesias, loss of speech or vision; memory loss, vertigo, tremors, numbness Psychiatric: stable mood; excessive anxiety, sadness or moodiness 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) Social history: other (Previous history of smoking) Family history: no significant family history Medications and Allergies Allergies Allergy/AdvReac Type Severity Reaction Status Date / Time No Known Allergies Allergy Unverified 08/21/18 16:02 Home Medications Medication Instructions Recorded Confirmed Last Taken Type AtorvaSTATin [Lipitor] 40 mg PO QHS 06/21/19 06/21/19 Unknown History Ferrous Sulfate [Iron 325 MG] 325 mg PO QDAY 06/21/19 06/21/19 Unknown History amLODIPine [Norvasc] 10 mg PO DAILY 06/21/19 06/21/19 Unknown History carvediloL [Coreg] 12.5 mg PO BID 06/21/19 06/21/19 Unknown History Active Meds: Active Medications Acetaminophen (Tylenol) 650 mg PO Q4H PRN PRN Reason: Pain, Mild (1-3) Atorvastatin Calcium (Lipitor) 40 mg PO QHS [facility] Last Admin: 06/22/19 22:21 Dose: 40 mg Documented by: Bisacodyl (Dulcolax) 10 mg [place] QDAY PRN PRN Reason: Constipation Enoxaparin Sodium (Enoxaparin) 40 mg SUB-Q QDAY [facility] Last Admin: 06/23/19 10:18 Dose: 40 mg Documented by: Ferrous Sulfate (Feosol) 325 mg PO QDAY [facility] Last Admin: 06/23/19 10:18 Dose: 325 mg Documented by: Methylprednisolone Sodium Succinate 1,000 mg/ Sodium Chloride 250 mls @ 250 mls/hr IV Q24H [facility] Stop: 06/25/19 23:59 Last Admin: 06/22/19 18:11 Dose: 250 mls/hr Documented by: Magnesium Hydroxide (Milk Of Magnesia) 30 ml PO Q4H PRN PRN Reason: Constipation Ondansetron HCl (Zofran) 4 mg IV Q8H PRN PRN Reason: Nausea And Vomiting Pantoprazole Sodium (Protonix) 40 mg PO QDAY [facility] Last Admin: 06/23/19 10:18 Dose: 40 mg Documented by: Sodium Chloride (Sodium Chloride Flush Syringe 10 Ml) 10 ml IV PRN PRN PRN Reason: LINE FLUSH Physical Examination - Physical Exam Narrative exam: General appearance: Alert in NAD hard of hearing Eyes: anicteric sclerae, moist conjunctivae; no lid-lag; PERRLA HENT: Atraumatic; oropharynx clear with moist mucous +right facial droop Lungs: CTA, with normal respiratory effort and no intercostal retractions CV: RRR no murmur Abdomen: Soft, non-tender; no masses or hepatosplenomegaly Extremities: no edema, no cyanosis Skin: No rash. Psych: Appropriate affect, alert and oriented to person, place and time. Neuro: alert and oriented x 3. Moving all extermities right facila droop - Constitutional Vitals: Vital Signs Temp Pulse Resp BP Pulse Ox 98.5 F 82 18 111/77 97 06/22/19 23:57 06/23/19 00:00 06/22/19 23:57 06/22/19 23:57 06/22/19 23:57 Temperature -Last 24 Hours Temperature 98.5 F Temperature 98.9 F Temperature 98.2 F Temperature 98.2 F Results - Labs CBC & Chem 7: 06/23/19 06:06 06/23/19 06:06 Labs: Abnormal lab results 06/23/19 06/23/19 Range/Units 06:06 06:06 RBC 5.24 H (3.65-5.03) M/mm3 MCV 78 L (79-97) fl MCH 25 L (28-32) pg RDW 19.9 H (13.2-15.2) % Carbon Dioxide 19 L (22-30) mmol/L Creatinine 0.5 L (0.7-1.2) mg/dL Glucose 155 H (65-100) mg/dL LDL Cholesterol Direct 42 L (50-130) mg/dL Assessment and Plan Cultures: none Assessment: 28 years old female with history of hypertension, obesity, hyperlipidemia, previous pulmonary embolism (she was on Eliquis) and recent CVA with residual right facial droop, decreased vision in the left eye, decreased hearing in the left ear, status post prolonged admission at [facility] since January, to May 03, 2019 where she was 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 She has had no follow-up. She is not septic, no fever, no leukocytosis. Reports previous HIV negative. Noted recent history of complicated viral encephalitis with CVA and PEs. No documentation to confirm diagnosis at the time of this encounter. CSF with elevated white blood cells at 35 with increased lymphocytes, normal glucose and normal protein; optic neuritis versus optic neuropathy with CSF pleocytosis. Differential is extensive, including multiple sclerosis which can cause CSF pleocytosis, syphilis, lupus, sarcoidosis, ischemia. The possibility of viral encephalitis at this time is low. However, will start acyclovir IV for now. I requested HSV PCR, CMV PCR, EBV PCR to be added to the CSF studies. I personally called [facility]. Requested UZAIR, C3, C4, CRP. #Recent complicated stroke #Recent PE of anticoagulation Recommendations: Request records from [facility] Start acyclovir 10 mg/kg grams IV every 8 hour obtain HSV PCR, CMV PCR, EBV PCR to be added to the CSF studies. F/u CSF VDRL add cryptococcal antigen in CSF Obtain HIV rapid test and VL Obtain RPP I personally called [facility]. Order UZAIR, C3, C4, CRP. Will follow. Aaliyah Ramirez MD Infectious Diseases Independent Freight Agent [facility] M [phone] O [phone]
--- NOTE | 2019-06-23 13:04 | Progress Note ---
Assessment and Plan Patient is a 28-year-old woman with a history of hyperlipidemia, hypertension, history of PE, history of CVA with residual decreased hearing in right ear/right facial weakness/decreased vision in left eye, who presents with decreased vision in the left eye, and decreased hearing in left ear. According the patient's clinical findings, she is found to have optic neuritis. This may be due to viral infection etiology, as patient reportedly recently had viral encephalitis. MRI did not reveal any evidence of acute ischemic stroke. Plan: 1. Optic neuritis: - MRI brain: Showed evidence of optic neuritis involving the optic chiasm. - CTA head/neck: No significant stenosis. - CT head: No acute abnormality. -Cont. patient on IV methylprednisolone 1 g daily for 3 days, followed by oral prednisolone 1 mg/kg daily for 11 days, and then tapered over 3 days. -ID following, as patient reportedly recently had viral encephalitis. It is t herefore possible that this may be a viral optic neuritis, and patient may require antiviral therapy. Patient started on antiviral therapy. -Per primary team outside hospital records have been requested. Awaiting records to arrive. - CSF: WBC 35, 74% lymphocytes, protein 28. -Viral studies sent of CSF. -As no acute infarct is noted on MRI, okay to restart patient on Eliquis. - Cont. statin. LDL goal <70 - Telemetry monitoring while in house - PT/OT/ST - DVT Ppx: Eliquis -Given patient's visual deficits, recommended that she does not drive until cleared by ophthalmology. -Recommend obtaining outside records from [facility] for better understanding of patient's medical history. -Recommend ENT consult for left ear discharge, as patient was complaining of discharge from the left ear yesterday. 2. Hypertension: - Recommend BP goal of normotension. - Will continue to monitor patient. Thank you for allowing me to take part in the care of this patient. Sotero Sifuentes MD Neurology Subjective Date of service: 06/23/19 Principal diagnosis: Optic neuritis Interval history: Patient states that vision has somewhat improved today, as well as improved hearing in left ear. Objective - Exam Narrative Exam: Patient is alert, awake, oriented x4, follows complex commands. Mild dysarthria noted, no aphasia noted. PERRL, EOMI, decreased visual field in the left eye to superior/inferior/medial cortez, right eye intact to all visual cortez, tongue midline, bilaterally intact to LT, right facial weakness noted, noted to have significantly decreased hearing in the right ear. 5/5 strength in all extremities. Bilaterally intact light touch. Bilaterally intact to FTN and HTS. 2+ reflexes throughout. - General Apperance Constitutional: comfortable - EENT EENT: ATNC, PERRL, mucous membranes moist - Respiratory Respiratory: lungs clear, normal breath sounds - Cardiovascular Cardiovascular: regular rate, normal S1, normal S2 Extremities: no clubbing, cyanosis, no inflammation - Gastrointestinal Gastrointestinal: normoactive bowel sounds, soft, non-tender - Integumentary Integumentary: normal - Musculoskeletal Musculoskeletal: no fluid collection, no pain - Psychiatric Psychiatric: mood/affect appropriate - Laboratory Findings CBC and BMP: 06/23/19 06:06 06/23/19 06:06 Abnormal Lab Findings: Abnormal Labs 06/21/19 06/21/19 06/22/19 20:06 20:06 10:02 RBC 5.26 H MCV 77 L MCH 25 L RDW 20.1 H Lymph % (Auto) 47.5 H [place] % (Auto) 10.1 H Seg Neutrophils % 39.7 L Carbon Dioxide Creatinine 0.6 L Glucose Total Creatine Kinase 27 L LDL Cholesterol Direct 06/23/19 06/23/19 06:06 06:06 RBC 5.24 H MCV 78 L MCH 25 L RDW 19.9 H Lymph % (Auto) [place] % (Auto) Seg Neutrophils % Carbon Dioxide 19 L Creatinine 0.5 L Glucose 155 H Total Creatine Kinase LDL Cholesterol Direct 42 L
--- NOTE | 2019-06-23 15:03 | Progress Note ---
Assessment and Plan Assessment and plan: Worse vision right eye likely due to optic neuritis Started on solumedrol iv Neuro checks, Consulted neurology, discussed with Dr. Sifuentes He recommended ID eval. I consultede and discussed with Dr. Knutson physical, occupational therapy History of stroke with residual weakness History of pulmonary emboli To resume Eliquis tomorrow. On hold because LP today Hypertension Stable Poor hearing DVT prophylaxis History Interval history: Patient presented with worsening vision left eye Hospitalist Physical - Physical exam Narrative exam: GEN: Not in acute distress, lying in bed, obese HEENT: Normocephalic, atraumatic, Neck: supple, No JVD Lungs: Clear to auscultation ,no wheeze, heart;S1 and S2 reg, no murmurs, rubs or gallop Abd:soft, non tender, non distended, normal bowel sounds Ext: No edema, no clubbing, no cyanosis Neuro: Awake,alert, oriented X 3, residual left sided weakness from previous stroke - Constitutional Vitals: Temp Pulse Resp BP Pulse Ox 98.5 F 82 18 111/77 97 06/22/19 23:57 06/23/19 00:00 06/22/19 23:57 06/22/19 23:57 06/22/19 23:57 Results - Labs CBC & Chem 7: 06/23/19 06:06 06/23/19 06:06 Labs: Laboratory Last Values WBC 6.7 K/mm3 (4.5-11.0) 06/23/19 06:06 RBC 5.24 M/mm3 (3.65-5.03) H 06/23/19 06:06 Hgb 13.3 gm/dl (10.1-14.3) 06/23/19 06:06 Hct 40.9 % (30.3-42.9) 06/23/19 06:06 MCV 78 fl (79-97) L 06/23/19 06:06 MCH 25 pg (28-32) L 06/23/19 06:06 MCHC 33 % (30-34) 06/23/19 06:06 RDW 19.9 % (13.2-15.2) H 06/23/19 06:06 Plt Count 251 K/mm3 (140-440) 06/23/19 06:06 Lymph % (Auto) 47.5 % (13.4-35.0) H 06/21/19 20:06 [place] % (Auto) 10.1 % (0.0-7.3) H 06/21/19 20:06 Eos % (Auto) 2.2 % (0.0-4.3) 06/21/19 20:06 Baso % (Auto) 0.5 % (0.0-1.8) 06/21/19 20:06 Lymph # 2.1 K/mm3 (1.2-5.4) 06/21/19 20:06 [place] # 0.5 K/mm3 (0.0-0.8) 06/21/19 20:06 Eos # 0.1 K/mm3 (0.0-0.4) 06/21/19 20:06 Baso # 0.0 K/mm3 (0.0-0.1) 06/21/19 20:06 Seg Neutrophils % 39.7 % (40.0-70.0) L 06/21/19 20:06 Seg Neutrophils # 1.8 K/mm3 (1.8-7.7) 06/21/19 20:06 PT 12.9 Sec. (12.2-14.9) 06/21/19 20:06 INR 0.96 (0.87-1.13) 06/21/19 20:06 APTT 34.3 Sec. (24.2-36.6) 06/21/19 20:06 Sodium 141 mmol/L (137-145) 06/23/19 06:06 Potassium 4.1 mmol/L (3.6-5.0) 06/23/19 06:06 Chloride 105.1 mmol/L (98-107) 06/23/19 06:06 Carbon Dioxide 19 mmol/L (22-30) L 06/23/19 06:06 Anion Gap 21 mmol/L 06/23/19 06:06 BUN 11 mg/dL (7-17) 06/23/19 06:06 Creatinine 0.5 mg/dL (0.7-1.2) L 06/23/19 06:06 Estimated GFR > 60 ml/min 06/23/19 06:06 BUN/Creatinine Ratio 22 % 06/23/19 06:06 Glucose 155 mg/dL (65-100) H 06/23/19 06:06 Calcium 9.4 mg/dL (8.4-10.2) 06/23/19 06:06 Total Bilirubin 0.40 mg/dL (0.1-1.2) 06/21/19 20:06 AST 15 units/L (5-40) 06/21/19 20:06 ALT 11 units/L (7-56) 06/21/19 20:06 Alkaline Phosphatase 77 units/L (35-129) 06/21/19 20:06 Total Creatine Kinase 27 units/L (30-135) L 06/22/19 10:02 CK-MB (CK-2) < 1.0 ng/mL (0.0-4.0) 06/22/19 10:02 CK-MB (CK-2) Rel Index 3.7 (0-4) 06/22/19 10:02 Troponin T < 0.010 ng/mL (0.00-0.029) 06/22/19 10:02 C-Reactive Protein < 0.03 mg/dL (0.00-1.30) 06/23/19 13:18 Total Protein 7.2 g/dL (6.3-8.2) 06/21/19 20:06 Albumin 4.2 g/dL (3.9-5) 06/21/19 20:06 Albumin/Globulin Ratio 1.4 % 06/21/19 20:06 Triglycerides 24 mg/dL (2-149) 06/23/19 06:06 Cholesterol 94 mg/dL (50-199) 06/23/19 06:06 LDL Cholesterol Direct 42 mg/dL (50-130) L 06/23/19 06:06 HDL Cholesterol 53 mg/dL (40-59) 06/23/19 06:06 Cholesterol/HDL Ratio 1.77 % 06/23/19 06:06 HCG, Quant < 2 mIU/mL (0-4) 06/21/19 20:19 CSF Appearance Clear 06/22/19 08:55 CSF Color Colorless 06/22/19 08:55 CSF WBC 35 /mm3 (1-10) 06/22/19 08:55 CSF RBC 4 /mm3 (0-0) 06/22/19 08:55 CSF Seg Neutrophils 6.8 % (0-6) 06/22/19 08:55 CSF Lymphocytes % 73.9 % (40-80) 06/22/19 08:55 CSF Reactive Lymphs 0 % 06/22/19 08:55 CSF Monocytes % 15.9 % (15-45) 06/22/19 08:55 CSF Eosinophils % 3.4 % 06/22/19 08:55 CSF Basophils 0 % 06/22/19 08:55 CSF Pathologist Review C 06/22/19 08:55 CSF Glucose 83 mg/dL 06/22/19 08:55 CSF Total Protein 28 mg/dL 06/22/19 08:55 Active Medications - Current Medications Current Medications: Generic Name Dose Route Start Last Admin Trade Name Freq PRN Reason Stop Dose Admin Acetaminophen 650 mg 06/22/19 03:42 Tylenol PO Q4H PRN Pain, Mild (1-3) Atorvastatin Calcium 40 mg 06/22/19 22:00 06/22/19 22:21 Lipitor PO 40 mg QHS [facility] Administration Bisacodyl 10 mg 06/22/19 03:42 Dulcolax [place] QDAY PRN Constipation Enoxaparin Sodium 40 mg 06/22/19 10:00 06/23/19 10:18 Enoxaparin SUB-Q 40 mg QDAY [facility] Administration Ferrous Sulfate 325 mg 06/22/19 10:00 06/23/19 10:18 Feosol PO 325 mg QDAY VY Administration Methylprednisolone Sodium 250 mls @ 250 mls/hr 06/22/19 18:00 06/22/19 18:11 Succinate 1,000 mg/ Sodium IV 06/25/19 23:59 250 mls/hr Chloride Q24H VY Administration Acyclovir 1,000 mg/ Sodium 120 mls @ 100 mls/hr 06/23/19 14:00 Chloride IV Q8HR [facility] Protocol Magnesium Hydroxide 30 ml 06/22/19 03:42 Milk Of Magnesia PO Q4H PRN Constipation Ondansetron HCl 4 mg 06/22/19 03:42 Zofran IV Q8H PRN Nausea And Vomiting Pantoprazole Sodium 40 mg 06/22/19 18:00 06/23/19 10:18 Protonix PO 40 mg QDAY [facility] Administration Sodium Chloride 10 ml 06/22/19 03:42 Sodium Chloride Flush Syringe 10 Ml IV PRN PRN LINE FLUSH
[2019-06-23] MEDS: ACYCLOVIR 1,000 MG in SODIUM CHLORIDE 0.9% 100 ML IV SCH ×2 (15:45→21:38)
[2019-06-23] MEDS: methylPREDNISolone Sod Suc 1,000 MG in SODIUM CHLORIDE 0.9% 250ML 250 ML IV SCH (18:51)
[2019-06-23] MEDS: ACETAMINOPHEN 325 MG TAB PO PRN (20:55)
[2019-06-24] MEDS: PANTOPRAZOLE 40 MG TAB PO SCH (09:43)
[2019-06-24] MEDS: FERROUS SULFATE 325 MG TAB PO SCH (09:43)
[2019-06-24] MEDS: ENOXAPARIN 40 MG/0.4 ML INJ SUB-Q SCH (09:43)
--- NOTE | 2019-06-24 11:35 | Progress Note ---
Assessment and Plan Patient is a 28-year-old woman with a history of hyperlipidemia, hypertension, history of PE, history of CVA with residual decreased hearing in right ear/right facial weakness/decreased vision in left eye, who presents with decreased vision in the left eye, and decreased hearing in left ear. According the patient's clinical findings, she is found to have optic neuritis. This may be due to viral infection etiology, as patient reportedly recently had viral encephalitis. MRI did not reveal any evidence of acute ischemic stroke. Plan: 1. Optic neuritis: - MRI brain: Showed evidence of optic neuritis involving the optic chiasm. - CTA head/neck: No significant stenosis. - CT head: No acute abnormality. -Cont. patient on IV methylprednisolone 1 g daily for total of 3 days, followed by oral prednisolone 1 mg/kg daily for 11 days, and then tapered over 3 days. -ID following, as patient reportedly recently had viral encephalitis. It is therefore possible that this may be a viral optic neuritis, and patient may require antiviral therapy. Patient started on antiviral therapy. -Per primary team outside hospital records have been requested. Awaiting records to arrive. - CSF: WBC 35, 74% lymphocytes, protein 28. -Viral studies sent of CSF, pending. -As no acute infarct is noted on MRI, okay to restart patient on Eliquis. - Cont. statin. LDL goal <70 - Telemetry monitoring while in house - PT/OT/ST - DVT Ppx: Eliquis -Given patient's visual deficits, recommended that she does not drive until cleared by ophthalmology. -Recommend obtaining outside records from [facility] for better understanding of patient's medical history. -Recommend ENT consult for left ear discharge, as patient was complaining of discharge from the left ear yesterday. 2. Hypertension: - Recommend BP goal of normotension. 3. Loss of consciousness: -Patient had an episode of loss of consciousness overnight, however did not have any convulsions or loss of bowel or bladder control or tongue biting. -Uncertain etiology of event, however this may have been a seizure. Patient states that she had seizures while in a coma with viral encephalitis over the past 3 months. -We will start patient on Keppra 750 mg twice daily. Discussed risks and benefits of AED, patient agreed to this. -Check EEG. -Recommended for patient not to drive until cleared by DMV/DPS. She understood and accepted this. Further recommend seizure precautions. -Will sign off, as I am not covering neurology service over the weekend. Please consult neurologist covering the service over the weekend for further neurologic monitoring and management. Thank you for allowing me to take part in the care of this patient. Sotero Sifuentes MD Neurology Subjective Date of service: 06/24/19 Principal diagnosis: Optic neuritis Interval history: Patient had an event of loss of consciousness overnight. She had stood up to wash her hands, after which she lost consciousness briefly. No loss of bowel or bladder control, and no tongue biting noted during the event. Not noted to have any convulsions. States that vision has somewhat improved today, as well as improved hearing in left ear. Objective - Exam Narrative Exam: Patient is alert, awake, oriented x4, follows complex commands. Mild dysarthria noted, no aphasia noted. PERRL, EOMI, decreased visual field in the left eye to superior/inferior/medial cortez, right eye intact to all visual cortez, tongue midline, bilaterally intact to LT, right facial weakness noted, noted to have significantly decreased hearing in the right ear. 5/5 strength in all extremities. Bilaterally intact light touch. Bilaterally intact to FTN and HTS. 2+ reflexes throughout. - Vital Sign Vital Signs - 12hr 06/24/19 06/24/19 06/24/19 00:00 00:30 04:05 Temperature 98.8 F 98.4 F Pulse Rate 89 82 61 Respiratory 18 16 Rate Blood Pressure 115/61 119/58 O2 Sat by Pulse 95 97 Oximetry 06/24/19 07:36 Temperature 98.3 F Pulse Rate 66 Respiratory 18 Rate Blood Pressure 109/55 O2 Sat by Pulse 95 Oximetry - General Apperance Constitutional: comfortable - EENT EENT: ATNC, mucous membranes moist - Respiratory Respiratory: lungs clear, normal breath sounds - Cardiovascular Cardiovascular: regular rate, normal S1, normal S2 Extremities: no clubbing, cyanosis, no inflammation - Gastrointestinal Gastrointestinal: normoactive bowel sounds, soft, non-tender - Integumentary Integumentary: normal - Musculoskeletal Musculoskeletal: no fluid collection, no pain - Psychiatric Psychiatric: mood/affect appropriate - Laboratory Findings CBC and BMP: 06/23/19 06:06 06/23/19 06:06 Abnormal Lab Findings: Abnormal Labs 06/21/19 06/21/19 06/22/19 20:06 20:06 10:02 RBC 5.26 H MCV 77 L MCH 25 L RDW 20.1 H Lymph % (Auto) 47.5 H Delta % (Auto) 10.1 H Seg Neutrophils % 39.7 L Carbon Dioxide Creatinine 0.6 L Glucose POC Glucose Total Creatine Kinase 27 L LDL Cholesterol Direct 06/23/19 06/23/19 06/23/19 06:06 06:06 18:40 RBC 5.24 H MCV 78 L MCH 25 L RDW 19.9 H Lymph % (Auto) Delta % (Auto) Seg Neutrophils % Carbon Dioxide 19 L Creatinine 0.5 L Glucose 155 H POC Glucose 126 H Total Creatine Kinase LDL Cholesterol Direct 42 L 06/23/19 20:11 RBC MCV MCH RDW Lymph % (Auto) Delta % (Auto) Seg Neutrophils % Carbon Dioxide Creatinine Glucose POC Glucose 132 H Total Creatine Kinase LDL Cholesterol Direct
--- NOTE | 2019-06-24 11:59 | Cat Scan Report ---
CT head without contrast INDICATION : Fall. Headache after fall TECHNIQUE: Axial imaging performed from the skull apex through the skull base without the use of con trast. All CT scans at this location are performed using CT dose reduction for ALARA by means of aut omated exposure control. COMPARISON: CT head from 06/21/2019 FINDINGS: Parenchyma: No acute intracranial hemorrhage or parenchymal abnormality. Ventricles: Ventricles are normal in size and appear symmetric. Soft tissues: Soft tissues including the orbits appear normal. Bones: No acute osseous abnormality. Sinuses: Sinuses and mastoid air cells are clear. IMPRESSION: No acute abnormality. Signer Name: Harsh Mahoney MD Signed: 06/24/2019 11:54 AM Workstation Name: [id number]
[2019-06-24] MEDS: levETIRAcetam 500 MG TAB PO SCH ×2 (12:00→22:00)
--- NOTE | 2019-06-24 13:53 | Electroencephalogram Report ---
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 Patient had an episode of loss of consciousness on 06/23/2019. Description: The waking background shows an appropriate organization with well-defined anterior posterior voltage and frequency gradients. Posteriorly, there is a well-developed alpha rhythm of [ ] Hz which is symmetrical and bilaterally reactive. Anteriorly, there is a pattern of lower voltage and slightly irregular theta and beta range frequencies. During drowsiness, there is attenuation of the background rhythms. The sleep background shows normal organization with well-formed sleep spindles and vertex waves which are synchronous and symmetrical. Throughout, the recording there are no epileptiform abnormalities, focal or lateralizing features, or significant interhemispheric findings. DESCRIPTION OF THE PROCEDURE: Electrodes were applied using Paste technique in positions dictated by International 10-20 system of placement. In addition to EEG data EKG and eye movements were recorded. DESCRIPTION OF ACTIVITIY: At the onset of this recording, the patient is lying supine. In the background we note a 8-9 Hz alpha posterior dominant rhythm that has an amplitude ranging 15-30uV. There is normal attenuation of the background rhythm with eye opening. Additional low voltage beta activity occurs symmetrically at the anterior head regions bilaterally. There are no asymmetries in amplitude or frequency between hemispheres. During drowsiness and sleep, there is attenuation of alpha rhythm and low voltage theta activity occurs bilaterally. Intermittent photic stimulation was not performed. Hyperventilation was not performed. EKG lead showed a normal sinus rhythm. EEG Impression: 1) Normal awake and sleep activity. 2) No epileptiform activity or seizures were noted CLINICAL INTERPRETATION: This routine video EEG, performed during wakefulness and drowsiness is normal. [Note that a normal routine EEG does not rule out of the diagnosis of epilepsy. Should there be continued suspicion of seizures, a repeat study of longer duration can be considered.]
[2019-06-24] MEDS: ACYCLOVIR 1,000 MG in SODIUM CHLORIDE 0.9% 100 ML IV SCH ×2 (14:00→22:00)
--- NOTE | 2019-06-24 14:04 | Progress Note ---
Assessment and Plan Assessment and plan: Acute optic neuritis Continue solumedrol iv Neuro checks, Consulted neurology, discussed with Dr. Sifuentes He recommended ID eval. I consulted and discussed with Dr. Knutson, now following Acyclovir started by ID History of stroke with residual weakness History of pulmonary emboli Resume Eliquis today. Was on hold because LP done 06/23 Hypertension Stable Poor hearing 06/24 patient fell last night. CT head obtained, negative. Overall she feels better. History Interval history: Patient presented with worsening vision left eye Eye feels better Fell last night hit her head Hospitalist Physical - Constitutional Vitals: Temp Pulse Resp BP Pulse Ox 98.3 F 66 18 109/55 95 06/24/19 07:36 06/24/19 07:36 06/24/19 07:36 06/24/19 07:36 06/24/19 07:36 Results - Labs CBC & Chem 7: 06/23/19 06:06 06/23/19 06:06 Labs: Laboratory Last Values WBC 6.7 K/mm3 (4.5-11.0) 06/23/19 06:06 RBC 5.24 M/mm3 (3.65-5.03) H 06/23/19 06:06 Hgb 13.3 gm/dl (10.1-14.3) 06/23/19 06:06 Hct 40.9 % (30.3-42.9) 06/23/19 06:06 MCV 78 fl (79-97) L 06/23/19 06:06 MCH 25 pg (28-32) L 06/23/19 06:06 MCHC 33 % (30-34) 06/23/19 06:06 RDW 19.9 % (13.2-15.2) H 06/23/19 06:06 Plt Count 251 K/mm3 (140-440) 06/23/19 06:06 Lymph % (Auto) 47.5 % (13.4-35.0) H 06/21/19 20:06 Motley % (Auto) 10.1 % (0.0-7.3) H 06/21/19 20:06 Eos % (Auto) 2.2 % (0.0-4.3) 06/21/19 20:06 Baso % (Auto) 0.5 % (0.0-1.8) 06/21/19 20:06 Lymph # 2.1 K/mm3 (1.2-5.4) 06/21/19 20:06 Motley # 0.5 K/mm3 (0.0-0.8) 06/21/19 20:06 Eos # 0.1 K/mm3 (0.0-0.4) 06/21/19 20:06 Baso # 0.0 K/mm3 (0.0-0.1) 06/21/19 20:06 Seg Neutrophils % 39.7 % (40.0-70.0) L 06/21/19 20:06 Seg Neutrophils # 1.8 K/mm3 (1.8-7.7) 06/21/19 20:06 PT 12.9 Sec. (12.2-14.9) 06/21/19 20:06 INR 0.96 (0.87-1.13) 06/21/19 20:06 APTT 34.3 Sec. (24.2-36.6) 06/21/19 20:06 Sodium 141 mmol/L (137-145) 06/23/19 06:06 Potassium 4.1 mmol/L (3.6-5.0) 06/23/19 06:06 Chloride 105.1 mmol/L (98-107) 06/23/19 06:06 Carbon Dioxide 19 mmol/L (22-30) L 06/23/19 06:06 Anion Gap 21 mmol/L 06/23/19 06:06 BUN 11 mg/dL (7-17) 06/23/19 06:06 Creatinine 0.5 mg/dL (0.7-1.2) L 06/23/19 06:06 Estimated GFR > 60 ml/min 06/23/19 06:06 BUN/Creatinine Ratio 22 % 06/23/19 06:06 Glucose 155 mg/dL (65-100) H 06/23/19 06:06 POC Glucose 132 (70-105) H 06/23/19 20:11 Calcium 9.4 mg/dL (8.4-10.2) 06/23/19 06:06 Total Bilirubin 0.40 mg/dL (0.1-1.2) 06/21/19 20:06 AST 15 units/L (5-40) 06/21/19 20:06 ALT 11 units/L (7-56) 06/21/19 20:06 Alkaline Phosphatase 77 units/L (35-129) 06/21/19 20:06 Total Creatine Kinase 27 units/L (30-135) L 06/22/19 10:02 CK-MB (CK-2) < 1.0 ng/mL (0.0-4.0) 06/22/19 10:02 CK-MB (CK-2) Rel Index 3.7 (0-4) 06/22/19 10:02 Troponin T < 0.010 ng/mL (0.00-0.029) 06/22/19 10:02 C-Reactive Protein < 0.03 mg/dL (0.00-1.30) 06/23/19 13:18 Total Protein 7.2 g/dL (6.3-8.2) 06/21/19 20:06 Albumin 4.2 g/dL (3.9-5) 06/21/19 20:06 Albumin/Globulin Ratio 1.4 % 06/21/19 20:06 Triglycerides 24 mg/dL (2-149) 06/23/19 06:06 Cholesterol 94 mg/dL (50-199) 06/23/19 06:06 LDL Cholesterol Direct 42 mg/dL (50-130) L 06/23/19 06:06 HDL Cholesterol 53 mg/dL (40-59) 06/23/19 06:06 Cholesterol/HDL Ratio 1.77 % 06/23/19 06:06 HCG, Quant < 2 mIU/mL (0-4) 06/21/19 20:19 CSF Appearance Clear 06/22/19 08:55 CSF Color Colorless 06/22/19 08:55 CSF WBC 35 /mm3 (1-10) 06/22/19 08:55 CSF RBC 4 /mm3 (0-0) 06/22/19 08:55 CSF Seg Neutrophils 6.8 % (0-6) 06/22/19 08:55 CSF Lymphocytes % 73.9 % (40-80) 06/22/19 08:55 CSF Reactive Lymphs 0 % 06/22/19 08:55 CSF Monocytes % 15.9 % (15-45) 06/22/19 08:55 CSF Eosinophils % 3.4 % 06/22/19 08:55 CSF Basophils 0 % 06/22/19 08:55 CSF Pathologist Review C 06/22/19 08:55 CSF Glucose 83 mg/dL 06/22/19 08:55 CSF Total Protein 28 mg/dL 06/22/19 08:55 Syphilis IgG Antibody Non-reactive (NonReactive) 06/23/19 13:18 Active Medications - Current Medications Current Medications: Generic Name Dose Route Start Last Admin Trade Name Freq PRN Reason Stop Dose Admin Acetaminophen 650 mg 06/22/19 03:42 06/23/19 20:55 Tylenol PO 650 mg Q4H PRN Administration Pain, Mild (1-3) Atorvastatin Calcium 40 mg 06/22/19 22:00 06/23/19 21:39 Lipitor PO 40 mg QHS VY Administration Bisacodyl 10 mg 06/22/19 03:42 Dulcolax AL QDAY PRN Constipation Enoxaparin Sodium 40 mg 06/22/19 10:00 06/24/19 09:43 Enoxaparin SUB-Q 40 mg QDAY VY Administration Ferrous Sulfate 325 mg 06/22/19 10:00 06/24/19 09:43 Feosol PO 325 mg QDAY VY Administration Methylprednisolone Sodium 250 mls @ 250 mls/hr 06/22/19 18:00 06/23/19 18:51 Succinate 1,000 mg/ Sodium IV 06/25/19 23:59 250 mls/hr Chloride Q24H VY Administration Acyclovir 1,000 mg/ Sodium 120 mls @ 100 mls/hr 06/23/19 14:00 06/23/19 21:38 Chloride IV 100 mls/hr Q8HR VY Administration Protocol Levetiracetam 750 mg 06/24/19 12:00 Keppra PO BID VY Magnesium Hydroxide 30 ml 06/22/19 03:42 Milk Of Magnesia PO Q4H PRN Constipation Ondansetron HCl 4 mg 06/22/19 03:42 Zofran IV Q8H PRN Nausea And Vomiting Pantoprazole Sodium 40 mg 06/22/19 18:00 06/24/19 09:43 Protonix PO 40 mg QDAY VY Administration Sodium Chloride 10 ml 06/22/19 03:42 Sodium Chloride Flush Syringe 10 Ml IV PRN PRN LINE FLUSH Nutrition/Malnutrition Assess - Dietary Evaluation Nutrition/Malnutrition Findings: Nutrition Notes Start: 06/23/19 15:22 Freq: Status: Active Protocol: Document 06/23/19 15:22 LM (Rec: 06/23/19 15:24 LM [id number]) Nutrition Notes Need for Assessment generated from: document preparer microfilming,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 Pt states eating well with no wt loss. Nutrition Intervention Revisit per MD consult or patient Sign Off request:
--- NOTE | 2019-06-24 15:57 | Progress Note ---
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 Possible due to acute optic neuritis; patient was off Eliquis for a month after recent PE. She has had no follow-up. She is not septic, no fever, no leukocytosis. Reports previous HIV test negative. Noted recent history of complicated viral encephalitis with CVA and PEs. No documentation to confirm type of encephalitis. CSF with elevated white blood cells at 35 with increased lymphocytes, normal glucose and normal protein; optic neuritis versus optic neuropathy with CSF pleocytosis. Differential is extensive, including multiple sclerosis which can cause CSF pleocytosis, syphilis, lupus, sarcoidosis, ischemia. Syphilis IgG negative. The possibility of viral encephalitis at this time is low. I requested HSV PCR, CMV PCR, EBV PCR to be added to the CSF studies. I personally called micro lab. Requested UZAIR, C3, C4, CRP. #Recent complicated stroke #Recent PE of anticoagulation #Left ear discharge ? unclear Recommendations: Request records from [facility] - pending Continue acyclovir 10 mg/kg IV every 8 hour F/u HSV PCR, CMV PCR, EBV PCR to be added to the CSF studies. F/u CSF VDRL Obtain HIV rapid test and VL f/u UZAIR, C3, C4, CRP. Will follow. I will be covering the weekend, Dr. Gutierrez will be back on Thursday Aaliyah Ramirez MD Infectious Diseases Public Affairs Officer [facility] M [phone] O [phone] Subjective Date of service: 06/24/19 Principal diagnosis: Optic neuritis Interval history: Patient feeling better, left eye visual acuity improving, left ear hearing improving, no fever. Review of systems: denies nausea, vomiting, diarrhea, chest pain, shortness of breath, rash Objective - Exam Narrative Exam: General appearance: Alert in NAD hard of hearing Eyes: anicteric sclerae, moist conjunctivae; no lid-lag; PERRLA HENT: Atraumatic; oropharynx clear with moist mucous +right facial droop Neck: Old trach scar Lungs: CTA, with normal respiratory effort and no intercostal retractions CV: RRR no murmur Abdomen: Soft, non-tender; no masses or hepatosplenomegaly Extremities: no edema, no cyanosis Skin: No rash. Psych: Appropriate affect, alert and oriented to person, place and time. Neuro: alert and oriented x 3. Moving all extermities right facial droop - Constitutional Vitals: Vital Signs Temp Pulse Resp BP Pulse Ox 98.3 F 66 18 109/55 95 06/24/19 07:36 06/24/19 07:36 06/24/19 07:36 06/24/19 07:36 06/24/19 07:36 Temperature -Last 24 Hours Temperature 98.3 F Temperature 98.4 F Temperature 98.8 F Temperature 99.4 F Temperature 98.6 F - Labs CBC & Chem 7: 06/23/19 06:06 06/23/19 06:06 Labs: Abnormal lab results 06/23/19 06/23/19 Range/Units 18:40 20:11 POC Glucose 126 H 132 H (70-105)
[2019-06-24] MEDS: APIXABAN 5 MG TAB PO SCH ×2 (17:00→21:59)
[2019-06-24] MEDS: methylPREDNISolone Sod Suc 1,000 MG in SODIUM CHLORIDE 0.9% 250ML 250 ML IV SCH (17:23)
[2019-06-25] MEDS: ACYCLOVIR 1,000 MG in SODIUM CHLORIDE 0.9% 100 ML IV SCH ×2 (05:41→14:00)
[2019-06-25] MEDS: PANTOPRAZOLE 40 MG TAB PO SCH (09:00)
[2019-06-25] MEDS: APIXABAN 5 MG TAB PO SCH ×2 (09:00→21:13)
[2019-06-25] MEDS: levETIRAcetam 500 MG TAB PO SCH ×2 (09:00→21:12)
[2019-06-25] MEDS: ENOXAPARIN 40 MG/0.4 ML INJ SUB-Q SCH (09:01)
[2019-06-25] MEDS: FERROUS SULFATE 325 MG TAB PO SCH (09:01)
--- NOTE | 2019-06-25 12:33 | Progress Note ---
Assessment and Plan Assessment and plan: Acute optic neuritis Continue solumedrol iv Neuro checks, Consulted neurology, discussed with Dr. Sifuentes He recommended ID eval. I consulted and discussed with Dr. Knutson, now following Acyclovir started by ID History of stroke with residual weakness History of pulmonary emboli Resume Eliquis today. Was on hold because LP done 06/23 Hypertension Stable Poor hearing 06/24 patient fell last night. CT head obtained, negative. Overall she feels better. CT head no acute bleed. She feels better. Continue high dose steroids, anti-viral History Interval history: Patient presented with worsening vision left eye Left Eye feels better Hospitalist Physical - Physical exam Narrative exam: GEN: Not in acute distress, lying in bed, obese HEENT: Normocephalic, atraumatic, Neck: supple, No JVD Lungs: Clear to auscultation ,no wheeze, heart;S1 and S2 reg, no murmurs, rubs or gallop Abd:soft, non tender, non distended, normal bowel sounds Ext: No edema, no clubbing, no cyanosis Neuro: Awake,alert, oriented X 3, residual left sided weakness from previous stroke - Constitutional Vitals: Temp Pulse Resp BP Pulse Ox 98.2 F 73 18 133/81 92 06/25/19 08:11 06/25/19 08:11 06/25/19 08:11 06/25/19 08:11 06/25/19 08:11 Results - Labs CBC & Chem 7: 06/23/19 06:06 06/23/19 06:06 Labs: Laboratory Last Values WBC 6.7 K/mm3 (4.5-11.0) 06/23/19 06:06 RBC 5.24 M/mm3 (3.65-5.03) H 06/23/19 06:06 Hgb 13.3 gm/dl (10.1-14.3) 06/23/19 06:06 Hct 40.9 % (30.3-42.9) 06/23/19 06:06 MCV 78 fl (79-97) L 06/23/19 06:06 MCH 25 pg (28-32) L 06/23/19 06:06 MCHC 33 % (30-34) 06/23/19 06:06 RDW 19.9 % (13.2-15.2) H 06/23/19 06:06 Plt Count 251 K/mm3 (140-440) 06/23/19 06:06 Lymph % (Auto) 47.5 % (13.4-35.0) H 06/21/19 20:06 [place] % (Auto) 10.1 % (0.0-7.3) H 06/21/19 20:06 Eos % (Auto) 2.2 % (0.0-4.3) 06/21/19 20:06 Baso % (Auto) 0.5 % (0.0-1.8) 06/21/19 20:06 Lymph # 2.1 K/mm3 (1.2-5.4) 06/21/19 20:06 [place] # 0.5 K/mm3 (0.0-0.8) 06/21/19 20:06 Eos # 0.1 K/mm3 (0.0-0.4) 06/21/19 20:06 Baso # 0.0 K/mm3 (0.0-0.1) 06/21/19 20:06 Seg Neutrophils % 39.7 % (40.0-70.0) L 06/21/19 20:06 Seg Neutrophils # 1.8 K/mm3 (1.8-7.7) 06/21/19 20:06 PT 12.9 Sec. (12.2-14.9) 06/21/19 20:06 INR 0.96 (0.87-1.13) 06/21/19 20:06 APTT 34.3 Sec. (24.2-36.6) 06/21/19 20:06 Sodium 141 mmol/L (137-145) 06/23/19 06:06 Potassium 4.1 mmol/L (3.6-5.0) 06/23/19 06:06 Chloride 105.1 mmol/L (98-107) 06/23/19 06:06 Carbon Dioxide 19 mmol/L (22-30) L 06/23/19 06:06 Anion Gap 21 mmol/L 06/23/19 06:06 BUN 11 mg/dL (7-17) 06/23/19 06:06 Creatinine 0.5 mg/dL (0.7-1.2) L 06/23/19 06:06 Estimated GFR > 60 ml/min 06/23/19 06:06 BUN/Creatinine Ratio 22 % 06/23/19 06:06 Glucose 155 mg/dL (65-100) H 06/23/19 06:06 POC Glucose 128 (70-105) H 06/25/19 12:04 Calcium 9.4 mg/dL (8.4-10.2) 06/23/19 06:06 Total Bilirubin 0.40 mg/dL (0.1-1.2) 06/21/19 20:06 AST 15 units/L (5-40) 06/21/19 20:06 ALT 11 units/L (7-56) 06/21/19 20:06 Alkaline Phosphatase 77 units/L (35-129) 06/21/19 20:06 Total Creatine Kinase 27 units/L (30-135) L 06/22/19 10:02 CK-MB (CK-2) < 1.0 ng/mL (0.0-4.0) 06/22/19 10:02 CK-MB (CK-2) Rel Index 3.7 (0-4) 06/22/19 10:02 Troponin T < 0.010 ng/mL (0.00-0.029) 06/22/19 10:02 C-Reactive Protein < 0.03 mg/dL (0.00-1.30) 06/23/19 13:18 Total Protein 7.2 g/dL (6.3-8.2) 06/21/19 20:06 Albumin 4.2 g/dL (3.9-5) 06/21/19 20:06 Albumin/Globulin Ratio 1.4 % 06/21/19 20:06 Triglycerides 24 mg/dL (2-149) 06/23/19 06:06 Cholesterol 94 mg/dL (50-199) 06/23/19 06:06 LDL Cholesterol Direct 42 mg/dL (50-130) L 06/23/19 06:06 HDL Cholesterol 53 mg/dL (40-59) 06/23/19 06:06 Cholesterol/HDL Ratio 1.77 % 06/23/19 06:06 HCG, Quant < 2 mIU/mL (0-4) 06/21/19 20:19 CSF Appearance Clear 06/22/19 08:55 CSF Color Colorless 06/22/19 08:55 CSF WBC 35 /mm3 (1-10) 06/22/19 08:55 CSF RBC 4 /mm3 (0-0) 06/22/19 08:55 CSF Seg Neutrophils 6.8 % (0-6) 06/22/19 08:55 CSF Lymphocytes % 73.9 % (40-80) 06/22/19 08:55 CSF Reactive Lymphs 0 % 06/22/19 08:55 CSF Monocytes % 15.9 % (15-45) 06/22/19 08:55 CSF Eosinophils % 3.4 % 06/22/19 08:55 CSF Basophils 0 % 06/22/19 08:55 CSF Pathologist Review C 06/22/19 08:55 CSF Glucose 83 mg/dL 06/22/19 08:55 CSF Total Protein 28 mg/dL 06/22/19 08:55 Syphilis IgG Antibody Non-reactive (NonReactive) 06/23/19 13:18 Active Medications - Current Medications Current Medications: Generic Name Dose Route Start Last Admin Trade Name Freq PRN Reason Stop Dose Admin Acetaminophen 650 mg 06/22/19 03:42 06/23/19 20:55 Tylenol PO 650 mg Q4H PRN Administration Pain, Mild (1-3) Apixaban 5 mg 06/24/19 16:00 06/25/19 09:00 Eliquis PO 5 mg BID VY Administration Protocol Atorvastatin Calcium 40 mg 06/22/19 22:00 06/24/19 22:00 Lipitor PO 40 mg QHS VY Administration Bisacodyl 10 mg 06/22/19 03:42 Dulcolax [place] QDAY PRN Constipation Enoxaparin Sodium 40 mg 06/22/19 10:00 06/25/19 09:01 Enoxaparin SUB-Q 40 mg QDAY VY Administration Ferrous Sulfate 325 mg 06/22/19 10:00 06/25/19 09:01 Feosol PO 325 mg QDAY VY Administration Methylprednisolone Sodium 250 mls @ 250 mls/hr 06/22/19 18:00 06/24/19 17:23 Succinate 1,000 mg/ Sodium IV 06/25/19 23:59 250 mls/hr Chloride Q24H VY Administration Acyclovir 1,000 mg/ Sodium 120 mls @ 100 mls/hr 06/23/19 14:00 06/25/19 05:41 Chloride IV 100 mls/hr Q8HR VY Administration Protocol Levetiracetam 750 mg 06/24/19 12:00 06/25/19 09:00 Keppra PO 750 mg BID VY Administration Magnesium Hydroxide 30 ml 06/22/19 03:42 Milk Of Magnesia PO Q4H PRN Constipation Ondansetron HCl 4 mg 06/22/19 03:42 Zofran IV Q8H PRN Nausea And Vomiting Pantoprazole Sodium 40 mg 06/22/19 18:00 06/25/19 09:00 Protonix PO 40 mg QDAY VY Administration Sodium Chloride 10 ml 06/22/19 03:42 06/24/19 22:00 Sodium Chloride Flush Syringe 10 Ml IV 10 ml PRN PRN Administration LINE FLUSH Nutrition/Malnutrition Assess - Dietary Evaluation Nutrition/Malnutrition Findings: Nutrition Notes Start: 06/23/19 15:22 Freq: Status: Active Protocol: Document 06/23/19 15:22 LM (Rec: 06/23/19 15:24 LM [id number]) Nutrition Notes Need for Assessment generated from: 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 Pt states eating well with no wt loss. Nutrition Intervention Revisit per MD consult or patient Sign Off request:
--- NOTE | 2019-06-25 13:04 | Progress Note ---
Subjective Date of service: 05/28/19 Principal diagnosis: Optic neuritis Interval history: patient seen and hase patrice of gonzalez encephalitis from [facility] cause repeat MRI REVIEW WILL BE [facility]EFUL [facility] BEING IN [facility] PLAN TO FOLLOW UP AND REVIEW ALL NEURO IMAGING Objective - Vital Sign Vital Signs - 12hr 06/25/19 06/25/19 06/25/19 03:58 08:00 08:11 Temperature 98.4 F 98.2 F Pulse Rate 54 L 73 Pulse Rate [ 72 From Monitor] Pulse Rate [ 72 Left Radial] Pulse Rate [ 73 Right Radial] Respiratory 18 15 18 Rate Blood Pressure 121/78 133/81 O2 Sat by Pulse 96 98 92 Oximetry - Laboratory Findings CBC and BMP: 06/23/19 06:06 06/23/19 06:06 Abnormal Lab Findings: Abnormal Labs 06/21/19 06/21/19 06/22/19 20:06 20:06 10:02 RBC 5.26 H MCV 77 L MCH 25 L RDW 20.1 H Lymph % (Auto) 47.5 H [place] % (Auto) 10.1 H Seg Neutrophils % 39.7 L Carbon Dioxide Creatinine 0.6 L Glucose POC Glucose Total Creatine Kinase 27 L LDL Cholesterol Direct 06/23/19 06/23/19 06/23/19 06:06 06:06 18:40 RBC 5.24 H MCV 78 L MCH 25 L RDW 19.9 H Lymph % (Auto) [place] % (Auto) Seg Neutrophils % Carbon Dioxide 19 L Creatinine 0.5 L Glucose 155 H POC Glucose 126 H Total Creatine Kinase LDL Cholesterol Direct 42 L 06/23/19 06/24/19 06/24/19 20:11 19:57 21:27 RBC MCV MCH RDW Lymph % (Auto) [place] % (Auto) Seg Neutrophils % Carbon Dioxide Creatinine Glucose POC Glucose 132 H 125 H 118 H Total Creatine Kinase LDL Cholesterol Direct 06/25/19 12:04 RBC MCV MCH RDW Lymph % (Auto) [place] % (Auto) Seg Neutrophils % Carbon Dioxide Creatinine Glucose POC Glucose 128 H Total Creatine Kinase LDL Cholesterol Direct
[2019-06-25] MEDS: methylPREDNISolone Sod Suc 1,000 MG in SODIUM CHLORIDE 0.9% 250ML 250 ML IV SCH (17:24)
[2019-06-25] MEDS: ACETAMINOPHEN 325 MG TAB PO PRN (22:38)
[2019-06-26] MEDS: ACYCLOVIR IV SCH ×3 (05:08→22:18)
[2019-06-26] MEDS: SODIUM CHLORIDE 0.9% IV SCH ×3 (05:08→22:18)
[2019-06-26] MEDS: PANTOPRAZOLE 40 MG TAB PO SCH (09:32)
[2019-06-26] MEDS: FERROUS SULFATE 325 MG TAB PO SCH (09:32)
[2019-06-26] MEDS: APIXABAN 5 MG TAB PO SCH ×2 (09:32→22:17)
[2019-06-26] MEDS: levETIRAcetam 500 MG TAB PO SCH ×2 (09:32→22:17)
--- NOTE | 2019-06-26 10:56 | Progress Note ---
Assessment and Plan Assessment and plan: Acute optic neuritis Completed solumedrol iv will start prednisolone 1mg/kg daily X 11 days as recommended by neurology Neuro checks, Consulted neurology, discussed with Dr. Sifuentes He recommended ID eval. I consulted and discussed with Dr. Knutson, now following Acyclovir started by ID History of stroke with residual weakness History of pulmonary emboli Resumed Eliquis 06/24. Was on hold because LP done 06/23 Hypertension Stable Poor hearing 06/24 patient fell last night. CT head obtained, negative. Overall she feels better. CT head no acute bleed. She feels better. Continue high dose steroids, anti-viral 06/25 She complained of numbness of left part of face. She has had CT scans X 2, MRI Brain X 2. History Interval history: Patient presented with worsening vision left eye Left Eye feels better Numbness left part of face Hospitalist Physical - Physical exam Narrative exam: GEN: Not in acute distress, lying in bed, obese HEENT: Normocephalic, atraumatic, Neck: supple, No JVD Lungs: Clear to auscultation ,no wheeze, heart;S1 and S2 reg, no murmurs, rubs or gallop Abd:soft, non tender, non distended, normal bowel sounds Ext: No edema, no clubbing, no cyanosis Neuro: Awake,alert, oriented X 3, residual left sided weakness from previous stroke - Constitutional Vitals: Temp Pulse Resp BP Pulse Ox 98.2 F 78 18 120/72 99 06/26/19 08:44 06/26/19 08:00 06/26/19 08:44 06/26/19 08:44 06/26/19 08:00 Results - Labs CBC & Chem 7: 06/23/19 06:06 06/23/19 06:06 Labs: Laboratory Last Values WBC 6.7 K/mm3 (4.5-11.0) 06/23/19 06:06 RBC 5.24 M/mm3 (3.65-5.03) H 06/23/19 06:06 Hgb 13.3 gm/dl (10.1-14.3) 06/23/19 06:06 Hct 40.9 % (30.3-42.9) 06/23/19 06:06 MCV 78 fl (79-97) L 06/23/19 06:06 MCH 25 pg (28-32) L 06/23/19 06:06 MCHC 33 % (30-34) 06/23/19 06:06 RDW 19.9 % (13.2-15.2) H 06/23/19 06:06 Plt Count 251 K/mm3 (140-440) 06/23/19 06:06 Lymph % (Auto) 47.5 % (13.4-35.0) H 06/21/19 20:06 [place] % (Auto) 10.1 % (0.0-7.3) H 06/21/19 20:06 Eos % (Auto) 2.2 % (0.0-4.3) 06/21/19 20:06 Baso % (Auto) 0.5 % (0.0-1.8) 06/21/19 20:06 Lymph # 2.1 K/mm3 (1.2-5.4) 06/21/19 20:06 [place] # 0.5 K/mm3 (0.0-0.8) 06/21/19 20:06 Eos # 0.1 K/mm3 (0.0-0.4) 06/21/19 20:06 Baso # 0.0 K/mm3 (0.0-0.1) 06/21/19 20:06 Seg Neutrophils % 39.7 % (40.0-70.0) L 06/21/19 20:06 Seg Neutrophils # 1.8 K/mm3 (1.8-7.7) 06/21/19 20:06 PT 12.9 Sec. (12.2-14.9) 06/21/19 20:06 INR 0.96 (0.87-1.13) 06/21/19 20:06 APTT 34.3 Sec. (24.2-36.6) 06/21/19 20:06 Sodium 141 mmol/L (137-145) 06/23/19 06:06 Potassium 4.1 mmol/L (3.6-5.0) 06/23/19 06:06 Chloride 105.1 mmol/L (98-107) 06/23/19 06:06 Carbon Dioxide 19 mmol/L (22-30) L 06/23/19 06:06 Anion Gap 21 mmol/L 06/23/19 06:06 BUN 11 mg/dL (7-17) 06/23/19 06:06 Creatinine 0.5 mg/dL (0.7-1.2) L 06/23/19 06:06 Estimated GFR > 60 ml/min 06/23/19 06:06 BUN/Creatinine Ratio 22 % 06/23/19 06:06 Glucose 155 mg/dL (65-100) H 06/23/19 06:06 POC Glucose 132 (70-105) H 06/26/19 08:34 Calcium 9.4 mg/dL (8.4-10.2) 06/23/19 06:06 Total Bilirubin 0.40 mg/dL (0.1-1.2) 06/21/19 20:06 AST 15 units/L (5-40) 06/21/19 20:06 ALT 11 units/L (7-56) 06/21/19 20:06 Alkaline Phosphatase 77 units/L (35-129) 06/21/19 20:06 Total Creatine Kinase 27 units/L (30-135) L 06/22/19 10:02 CK-MB (CK-2) < 1.0 ng/mL (0.0-4.0) 06/22/19 10:02 CK-MB (CK-2) Rel Index 3.7 (0-4) 06/22/19 10:02 Troponin T < 0.010 ng/mL (0.00-0.029) 06/22/19 10:02 C-Reactive Protein < 0.03 mg/dL (0.00-1.30) 06/23/19 13:18 Total Protein 7.2 g/dL (6.3-8.2) 06/21/19 20:06 Albumin 4.2 g/dL (3.9-5) 06/21/19 20:06 Albumin/Globulin Ratio 1.4 % 06/21/19 20:06 Triglycerides 24 mg/dL (2-149) 06/23/19 06:06 Cholesterol 94 mg/dL (50-199) 06/23/19 06:06 LDL Cholesterol Direct 42 mg/dL (50-130) L 06/23/19 06:06 HDL Cholesterol 53 mg/dL (40-59) 06/23/19 06:06 Cholesterol/HDL Ratio 1.77 % 06/23/19 06:06 HCG, Quant < 2 mIU/mL (0-4) 06/21/19 20:19 CSF Appearance Clear 06/22/19 08:55 CSF Color Colorless 06/22/19 08:55 CSF WBC 35 /mm3 (1-10) 06/22/19 08:55 CSF RBC 4 /mm3 (0-0) 06/22/19 08:55 CSF Seg Neutrophils 6.8 % (0-6) 06/22/19 08:55 CSF Lymphocytes % 73.9 % (40-80) 06/22/19 08:55 CSF Reactive Lymphs 0 % 06/22/19 08:55 CSF Monocytes % 15.9 % (15-45) 06/22/19 08:55 CSF Eosinophils % 3.4 % 06/22/19 08:55 CSF Basophils 0 % 06/22/19 08:55 CSF Pathologist Review C 06/22/19 08:55 CSF Glucose 83 mg/dL 06/22/19 08:55 CSF Total Protein 28 mg/dL 06/22/19 08:55 Syphilis IgG Antibody Non-reactive (NonReactive) 06/23/19 13:18 Active Medications - Current Medications Current Medications: Generic Name Dose Route Start Last Admin Trade Name Freq PRN Reason Stop Dose Admin Acetaminophen 650 mg 06/22/19 03:42 06/25/19 22:38 Tylenol PO 650 mg Q4H PRN Administration Pain, Mild (1-3) Apixaban 5 mg 06/24/19 16:00 06/26/19 09:32 Eliquis PO 5 mg BID VY Administration Protocol Atorvastatin Calcium 40 mg 06/22/19 22:00 06/25/19 21:13 Lipitor PO 40 mg QHS VY Administration Bisacodyl 10 mg 06/22/19 03:42 Dulcolax [place] QDAY PRN Constipation Ferrous Sulfate 325 mg 06/22/19 10:00 06/26/19 09:32 Feosol PO 325 mg QDAY VY Administration Acyclovir 1,000 mg/ Sodium 270 mls @ 180 mls/hr 06/26/19 06:00 06/26/19 05:08 Chloride IV 180 mls/hr Q8HR VY Administration Levetiracetam 750 mg 06/24/19 12:00 06/26/19 09:32 Keppra PO 750 mg BID VY Administration Magnesium Hydroxide 30 ml 06/22/19 03:42 Milk Of Magnesia PO Q4H PRN Constipation Ondansetron HCl 4 mg 06/22/19 03:42 Zofran IV Q8H PRN Nausea And Vomiting Pantoprazole Sodium 40 mg 06/22/19 18:00 06/26/19 09:32 Protonix PO 40 mg QDAY VY Administration Sodium Chloride 10 ml 06/22/19 03:42 06/24/19 22:00 Sodium Chloride Flush Syringe 10 Ml IV 10 ml PRN PRN Administration LINE FLUSH Nutrition/Malnutrition Assess - Dietary Evaluation Nutrition/Malnutrition Findings: Nutrition Notes Start: 06/23/19 15:22 Freq: Status: Active Protocol: Document 06/23/19 15:22 LM (Rec: 06/23/19 15:24 LM [email or web address]) Nutrition Notes Need for Assessment generated from: it service continuity supervisor,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 Pt states eating well with no wt loss. Nutrition Intervention Revisit per MD consult or patient Sign Off request:
[2019-06-26] MEDS ORDERED: prednisoLONE SOD PHOSPHATE 15 MG/5 ML ORAL LIQD PO SCH (13:00)
[2019-06-26 17:18] LABS: BUN/Creatinine Ratio 28; Blood Urea Nitrogen 17 mg/dL (7-17); Calcium 9.3 mg/dL (8.4-10.2); Hemolysis Index 11
--- NOTE | 2019-06-26 18:56 | Consultation ---
HISTORY OF PRESENT ILLNESS: This is a 28-year-old black female who enters [facility] via the Emergency Room. She presents with a very complicated history of having a disorder involving prolonged coma and severe neurological deficits, requiring ventilatory support. She was at supposedly [facility]. In the interval, she did recover and I have reviewed over some of her testing including MRI scan. Most recent CT scan has been reviewed and I would interpret as being normal. Her major complaints at present are this having some visual problems. MRI that I have reviewed is essentially unremarkable to my view. I did notice that the radiologist on his review of the MRI suggested that there may be a juxta-contra lesion of multiple sclerosis, also enhancement of the intracranial optic nerves suggesting optic neuritis as well. The patient's history prior to this hospitalization was that she had developed a prolonged coma and was in the hospital at [facility] and she was on ventilatory support. She, at period of time she was in the hospital, is not altogether clear to me and taking her history, she does have quite obvious memory problems as to what occurred, although at this point, she seems to be recovering somewhat. PHYSICAL EXAMINATION: The patient's exam at this point reveals that she is alert, conscious, appropriate. She does have external deviation of the left eye. Mattress Stuffer strength is equal. Motor tone is otherwise unremarkable. Motor and sensory examination otherwise revealed no abnormalities. Cranial nerves 2-12 are intact with the exception of the external deviation of the left eye. IMPRESSION: This patient's illness is certainly complicated. I have reviewed her CT scan fairly extensively as well as her MRI. Obviously, I do not have copies of records from [facility]. I have reviewed over the spinal fluid and total protein is 28 and the glucose is 83 and the total number of white blood cells of 35, which is of course slightly elevated. 75% of these were lymphocytes. I certainly would expect to see a higher protein level in the spinal fluid if this was acute multiple sclerosis. I plan to review further imaging studies on her MRI to see if this diagnosis is sustainable, although it probably really would be worthwhile having this patient referred to an multiple sclerosis center to have their opinion. At this point, I would think that the presentation and when she was at [facility], was certainly not that of acute multiple sclerosis, more like some viral etiology and this may be what is referred to as an imitator of multiple sclerosis as opposed to multiple sclerosis per se. MARYLOU: 06/26/2019 09:26 [facility]# [id number] JENNIFER/SANDI
[2019-06-26] MEDS ORDERED: cefTRIAXone/NS 2 GM/100 ML 2 GM/100 ML BAG IV SCH (21:00)
[2019-06-26] MEDS ORDERED: PANTOPRAZOLE 40 MG INJ IV SCH (22:00)
[2019-06-27] MEDS: SODIUM CHLORIDE 0.9% IV SCH ×3 (06:33→21:45)
[2019-06-27] MEDS: ACYCLOVIR IV SCH ×3 (06:33→21:45)
--- NOTE | 2019-06-27 07:48 | Progress Note ---
Subjective Date of service: 06/27/19 Principal diagnosis: Optic neuritis Interval history: see my note from yesterday and this c/o left sided numbness is clearly and extension of the illness that caused her to be admitted to [facility]... my review of [facility] CT does not show acute stroke.... this is some type of inflammatory response suspectone of the " MS imitators" virus might help to repeat MRI later in week I went over the CSF and to me low protein tend to argue against MS bu that is anyone's opinion Objective - Vital Sign Vital Signs - 12hr 06/26/19 06/26/19 06/27/19 23:32 23:38 00:00 Temperature 98.1 F Pulse Rate 44 L 55 L 51 L Respiratory 16 Rate Blood Pressure 117/67 O2 Sat by Pulse 99 Oximetry 06/27/19 03:30 Temperature 97.7 F Pulse Rate 51 L Respiratory 18 Rate Blood Pressure 106/68 O2 Sat by Pulse 95 Oximetry - Laboratory Findings CBC and BMP: 06/23/19 06:06 06/26/19 16:46 Abnormal Lab Findings: Abnormal Labs 06/21/19 06/21/19 06/22/19 20:06 20:06 10:02 RBC 5.26 H MCV 77 L MCH 25 L RDW 20.1 H Lymph % (Auto) 47.5 H [place] % (Auto) 10.1 H Seg Neutrophils % 39.7 L Carbon Dioxide Creatinine 0.6 L Glucose POC Glucose Lactic Acid Total Creatine Kinase 27 L LDL Cholesterol Direct 06/23/19 06/23/19 06/23/19 06:06 06:06 18:40 RBC 5.24 H MCV 78 L MCH 25 L RDW 19.9 H Lymph % (Auto) [place] % (Auto) Seg Neutrophils % Carbon Dioxide 19 L Creatinine 0.5 L Glucose 155 H POC Glucose 126 H Lactic Acid Total Creatine Kinase LDL Cholesterol Direct 42 L 06/23/19 06/24/19 06/24/19 20:11 19:57 21:27 RBC MCV MCH RDW Lymph % (Auto) [place] % (Auto) Seg Neutrophils % Carbon Dioxide Creatinine Glucose POC Glucose 132 H 125 H 118 H Lactic Acid Total Creatine Kinase LDL Cholesterol Direct 06/25/19 06/25/19 06/25/19 12:04 16:01 20:41 RBC MCV MCH RDW Lymph % (Auto) [place] % (Auto) Seg Neutrophils % Carbon Dioxide Creatinine Glucose POC Glucose 128 H 124 H 222 H Lactic Acid Total Creatine Kinase LDL Cholesterol Direct 06/26/19 06/26/19 06/26/19 08:34 11:29 16:46 RBC MCV MCH RDW Lymph % (Auto) [place] % (Auto) Seg Neutrophils % Carbon Dioxide Creatinine Glucose POC Glucose 132 H 165 H Lactic Acid 2.10 H* Total Creatine Kinase LDL Cholesterol Direct 06/26/19 06/26/19 06/26/19 16:46 18:37 20:40 RBC MCV MCH RDW Lymph % (Auto) [place] % (Auto) Seg Neutrophils % Carbon Dioxide Creatinine 0.6 L Glucose 119 H POC Glucose 108 H Lactic Acid 2.50 H* Total Creatine Kinase LDL Cholesterol Direct 06/26/19 06/27/19 22:30 00:48 RBC MCV MCH RDW Lymph % (Auto) [place] % (Auto) Seg Neutrophils % Carbon Dioxide Creatinine Glucose POC Glucose Lactic Acid 2.40 H* 2.50 H* Total Creatine Kinase LDL Cholesterol Direct
[2019-06-27] MEDS: FERROUS SULFATE 325 MG TAB PO SCH (09:01)
[2019-06-27] MEDS: levETIRAcetam 500 MG TAB PO SCH ×2 (09:01→21:44)
[2019-06-27] MEDS: PANTOPRAZOLE 40 MG TAB PO SCH ×2 (09:01→21:45)
[2019-06-27] MEDS: APIXABAN 5 MG TAB PO SCH ×2 (09:01→21:45)
[2019-06-27] MEDS ORDERED: predniSONE 50 MG TAB PO SCH (10:00)
[2019-06-27] MEDS ORDERED: predniSONE 10 MG TAB PO SCH (10:00)
--- NOTE | 2019-06-27 10:55 | Progress Note ---
Assessment and Plan L vision loss of acuity acute w/o pain, MRI sugg of enhanced L optic nerve, and lesions L medulla, L precentral gyrus, corpus gisell. cerebellar increased T2 signal , all sugg of optic neuritis in setting of MS / NMO ? vs MOG recent ?viral enceph, now R face L body weakness, decreased hearing, L Optic neuritis, mild early atrophy cerebral hemispheres and cerebellum vermis, and lactic acid , but CSF looks normal initially ddx: infectious (viral ), inflamm, sarcoid, susacs, NMO, VST less likely clippers, histiocytic, behcets, or neoplastic back ground of a poss neuro deg dis process OPCA oligo : i dont see any results neuro axis imaging: i dont see any results ( for b/l lower leg weakness prior to coma/enceph check ck, hiv, esr, crp, ldh, nancy, lyme EBV pending consider hep c get records from [facility] so we dont repeat unnecessary tests check CT chest sarcoid check MRV for central clot 2 more days of IV 1000 solumed cont acyclovir cover for listeria for brainstem lesion Subjective Date of service: 06/27/19 Principal diagnosis: Optic neuritis Interval history: pt decribes a normal childhood and early adult life up to last summer when she 'lost feeling in her legs and went into a coma, bit her tongue half off, seizures all d/t viral enceph' up to of last mo pt was walking and vision was normal , so recurrent seizures since intubation/trach/coma "i was vaping on control, heavy menses and low iron" , ' thats why i had clots in my lungs and strokes ' 6 children MRI b w con re-reviewed: cerebral and cerebellar atrophy vermis, L med lesion, L precent gyr lesion, L opt n. enhancing csf normal L eye , vision was improving during IV steroids, since she feels things have been slightly worse lactic acid is still elevated, no recent sz, glucoses are not super high orthostatics are wnl no exposure to HIV , agrees for testing pt was in a coma from to woke up w R sided facial droop since waking up from coma pt left side has been on/off feeling heavy no neuro events in hosp overnight , feels unsteady w walking no fever no rash or photophobia, no flux AMS hallucin very hard of hearing L side feels heavy records from O[facility] not here, i am trying not to repeat testing, this notion of LE weakness prior to enceph/coma, not sure if the neuro axis was scanned for TM or MRV no c/o of MCKEON Objective - Exam Narrative Exam: AAO x 4 no aphasia dysarthria L sided feels heavy L arm drift, and sensory is intact to all limbs, and no sensory level L ptosis and L mild 3rd nerve palsy, L APD , L blurry vision decreased acuity , no pain w eye movements, no inflamm or proptosis, R facial droop decreased hearing b/l rest CN Intact 5/5 to all limbs mild cerebellar signs L UE DTR are symm and wnl 2+ mild ataxic stance, and unsteady gait, pt feels dizzy w standing hirsutism - Vital Sign Vital Signs - 12hr 06/26/19 06/26/19 06/27/19 23:32 23:38 00:00 Temperature 98.1 F Pulse Rate 44 L 55 L 51 L Pulse Rate [ From Monitor] Respiratory 16 Rate Blood Pressure 117/67 O2 Sat by Pulse 99 Oximetry 06/27/19 06/27/19 06/27/19 03:30 07:46 07:49 Temperature 97.7 F 98.0 F Pulse Rate 51 L 49 L Pulse Rate [ 78 From Monitor] Respiratory 18 20 18 Rate Blood Pressure 106/68 101/62 O2 Sat by Pulse 95 99 96 Oximetry - Laboratory Findings CBC and BMP: 06/23/19 06:06 06/26/19 16:46 Abnormal Lab Findings: Abnormal Labs 06/21/19 06/21/19 06/22/19 20:06 20:06 10:02 RBC 5.26 H MCV 77 L MCH 25 L RDW 20.1 H Lymph % (Auto) 47.5 H [place] % (Auto) 10.1 H Seg Neutrophils % 39.7 L Carbon Dioxide Creatinine 0.6 L Glucose POC Glucose Lactic Acid Total Creatine Kinase 27 L LDL Cholesterol Direct 06/23/19 06/23/19 06/23/19 06:06 06:06 18:40 RBC 5.24 H MCV 78 L MCH 25 L RDW 19.9 H Lymph % (Auto) [place] % (Auto) Seg Neutrophils % Carbon Dioxide 19 L Creatinine 0.5 L Glucose 155 H POC Glucose 126 H Lactic Acid Total Creatine Kinase LDL Cholesterol Direct 42 L 06/23/19 06/24/19 06/24/19 20:11 19:57 21:27 RBC MCV MCH RDW Lymph % (Auto) [place] % (Auto) Seg Neutrophils % Carbon Dioxide Creatinine Glucose POC Glucose 132 H 125 H 118 H Lactic Acid Total Creatine Kinase LDL Cholesterol Direct 06/25/19 06/25/19 06/25/19 12:04 16:01 20:41 RBC MCV MCH RDW Lymph % (Auto) [place] % (Auto) Seg Neutrophils % Carbon Dioxide Creatinine Glucose POC Glucose 128 H 124 H 222 H Lactic Acid Total Creatine Kinase LDL Cholesterol Direct 06/26/19 06/26/19 06/26/19 08:34 11:29 16:46 RBC MCV MCH RDW Lymph % (Auto) [place] % (Auto) Seg Neutrophils % Carbon Dioxide Creatinine Glucose POC Glucose 132 H 165 H Lactic Acid 2.10 H* Total Creatine Kinase LDL Cholesterol Direct 06/26/19 06/26/19 06/26/19 16:46 18:37 20:40 RBC MCV MCH RDW Lymph % (Auto) [place] % (Auto) Seg Neutrophils % Carbon Dioxide Creatinine 0.6 L Glucose 119 H POC Glucose 108 H Lactic Acid 2.50 H* Total Creatine Kinase LDL Cholesterol Direct 06/26/19 06/27/19 06/27/19 22:30 00:48 07:58 RBC MCV MCH RDW Lymph % (Auto) [place] % (Auto) Seg Neutrophils % Carbon Dioxide Creatinine Glucose POC Glucose 139 H Lactic Acid 2.40 H* 2.50 H* Total Creatine Kinase LDL Cholesterol Direct
[2019-06-27] MEDS: methylPREDNISolone Sod Suc 1,000 MG in SODIUM CHLORIDE 0.9% 100 ML IV SCH (12:19)
--- NOTE | 2019-06-27 12:34 | Consultation ---
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 Patient presented 06/21 with worsening vision changes of left eye associated with worsening hearing in the left ear, admitted with optic neuritis. A cardiac consultation has been requested for evaluation of chest pain. Since admission, patient reports intermittent chest pain associated with shortness of breath. She denies palpitations and dizziness. Cycled troponins are normal. Further evaluation with an echocardiogram reports a normal left ventricular systolic function, ejection fraction 50-55%. There is no ECG available for review but telemetry shows sinus bradycardia, rate ranging mid 40s to 50s. 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) Social history: other (Previous history of smoking) Family history: no significant family history Medications and Allergies Allergies Allergy/AdvReac Type Severity Reaction Status Date / Time No Known Allergies Allergy Unverified 08/21/18 16:02 Home Medications Medication Instructions Recorded Confirmed Last Taken Type AtorvaSTATin [Lipitor] 40 mg PO QHS 06/21/19 06/21/19 Unknown History Ferrous Sulfate [Iron 325 MG] 325 mg PO QDAY 06/21/19 06/21/19 Unknown History amLODIPine [Norvasc] 10 mg PO DAILY 06/21/19 06/21/19 Unknown History carvediloL [Coreg] 12.5 mg PO BID 06/21/19 06/21/19 Unknown History Apixaban [Eliquis] 5 tab PO BID 06/24/19 06/24/19 Unknown History Active Meds: Active Medications Acetaminophen (Tylenol) 650 mg PO Q4H PRN PRN Reason: Pain, Mild (1-3) Last Admin: 06/25/19 22:38 Dose: 650 mg Documented by: Apixaban (Eliquis) 5 mg PO BID VY; Protocol Last Admin: 06/27/19 09:01 Dose: 5 mg Documented by: Atorvastatin Calcium (Lipitor) 40 mg PO QHS [facility] Last Admin: 06/26/19 22:17 Dose: 40 mg Documented by: Bisacodyl (Dulcolax) 10 mg ME QDAY PRN PRN Reason: Constipation Ferrous Sulfate (Feosol) 325 mg PO QDAY [facility] Last Admin: 06/27/19 09:01 Dose: 325 mg Documented by: Acyclovir 1,000 mg/ Sodium (Chloride) 270 mls @ 180 mls/hr IV Q8HR [facility] Last Admin: 06/27/19 06:33 Dose: 180 mls/hr Documented by: Ceftriaxone Sodium (Rocephin/Ns 2 Gm/100 Ml) 2 gm in 100 mls @ 200 mls/hr IV Q24H [facility]; Protocol Last Admin: 06/26/19 22:16 Dose: 200 mls/hr Documented by: Methylprednisolone Sodium Succinate 1,000 mg/ Sodium Chloride 100 mls @ 200 mls/hr IV Q24HR [facility] Stop: 06/29/19 08:00 Last Admin: 06/27/19 12:19 Dose: 200 mls/hr Documented by: Levetiracetam (Keppra) 750 mg PO BID [facility] Last Admin: 06/27/19 09:01 Dose: 750 mg Documented by: Magnesium Hydroxide (Milk Of Magnesia) 30 ml PO Q4H PRN PRN Reason: Constipation Ondansetron HCl (Zofran) 4 mg IV Q8H PRN PRN Reason: Nausea And Vomiting Pantoprazole Sodium (Protonix) 40 mg PO BID [facility] Last Admin: 06/27/19 09:01 Dose: 40 mg Documented by: Prednisone (Deltasone) 100 mg PO QDAY [facility] Last Admin: 06/27/19 09:04 Dose: 100 mg Documented by: Prednisone (Deltasone) 10 mg PO QDAY [facility] Last Admin: 06/27/19 09:01 Dose: 10 mg Documented by: Sodium Chloride (Sodium Chloride Flush Syringe 10 Ml) 10 ml IV PRN PRN PRN Reason: LINE FLUSH Last Admin: 06/24/19 22:00 Dose: 10 ml Documented by: Physical Examination Vital Signs Temp Pulse Resp BP Pulse Ox 97.8 F 77 13 118/66 98 06/21/19 18:25 06/21/19 18:25 06/21/19 18:25 06/21/19 18:25 06/21/19 18:25 General appearance: no acute distress HEENT: Positive: PERRL Cardiac: Positive: Bradycardia Lungs: Positive: Decreased Breath Sounds Neuro: Positive: Weakness Extremities: Absent: edema Results 06/23/19 06:06 06/26/19 16:46 Comprehensive Metabolic Panel 06/26/19 Range/Units 16:46 Sodium 142 (137-145) mmol/L Potassium 4.0 (3.6-5.0) mmol/L Chloride 103.7 (98-107) mmol/L Carbon Dioxide 25 (22-30) mmol/L BUN 17 (7-17) mg/dL Creatinine 0.6 L (0.7-1.2) mg/dL Glucose 119 H (65-100) mg/dL Calcium 9.3 (8.4-10.2) mg/dL Assessment and Plan Chest pain, atypical cycled troponins are normal. Optic neuritis Hypertension Obesity Prior CVA Hx of PE requiring trach placement in the recent past on eliquis An echocardiogram reports a normal left ventricular systolic function, ejection fraction 50-55%. Obtain a 12 lead ECG for cardiac review. Otherwise, conservative cardiac management.
--- NOTE | 2019-06-27 12:58 | Progress Note ---
Assessment and Plan Assessment and plan: Acute optic neuritis Completed solumedrol iv will start prednisolone 1mg/kg daily X 11 days as recommended by neurology Neuro checks, Consulted neurology, discussed with Dr. Sifuentes He recommended ID eval. I consulted and discussed with Dr. Knutson, now following Acyclovir started by ID History of stroke with residual weakness History of pulmonary emboli Resumed Eliquis 06/24. Was on hold because LP done 06/23 Hypertension Stable Poor hearing 06/24 patient fell last night. CT head obtained, negative. Overall she feels better. CT head no acute bleed. She feels better. Continue high dose steroids, anti-viral 06/25 She complained of numbness of left part of face. She has had CT scans X 2, MRI Brain X 2. 06/[address] Malik, neurologist. he ordered UZAIR, KAITLYNN level, MRABrain , multiple tests. he also ordered few more days iv solu-medrol History Interval history: Patient presented with worsening vision left eye Left Eye feels better Hospitalist Physical - Physical exam Narrative exam: GEN: Not in acute distress, lying in bed, obese HEENT: Normocephalic, atraumatic, Neck: supple, No JVD Lungs: Clear to auscultation ,no wheeze, heart;S1 and S2 reg, no murmurs, rubs or gallop Abd:soft, non tender, non distended, normal bowel sounds Ext: No edema, no clubbing, no cyanosis Neuro: Awake,alert, oriented X 3, residual left sided weakness from previous stroke - Constitutional Vitals: Temp Pulse Resp BP Pulse Ox 98.0 F 93 H 18 116/82 96 06/27/19 07:49 06/27/19 11:00 06/27/19 07:49 06/27/19 11:00 06/27/19 07:49 General appearance: Present: no acute distress Results - Labs CBC & Chem 7: 06/23/19 06:06 06/26/19 16:46 Labs: Laboratory Last Values WBC 6.7 K/mm3 (4.5-11.0) 06/23/19 06:06 RBC 5.24 M/mm3 (3.65-5.03) H 06/23/19 06:06 Hgb 13.3 gm/dl (10.1-14.3) 06/23/19 06:06 Hct 40.9 % (30.3-42.9) 06/23/19 06:06 MCV 78 fl (79-97) L 06/23/19 06:06 MCH 25 pg (28-32) L 06/23/19 06:06 MCHC 33 % (30-34) 06/23/19 06:06 RDW 19.9 % (13.2-15.2) H 06/23/19 06:06 Plt Count 251 K/mm3 (140-440) 06/23/19 06:06 Lymph % (Auto) 47.5 % (13.4-35.0) H 06/21/19 20:06 [place] % (Auto) 10.1 % (0.0-7.3) H 06/21/19 20:06 Eos % (Auto) 2.2 % (0.0-4.3) 06/21/19 20:06 Baso % (Auto) 0.5 % (0.0-1.8) 06/21/19 20:06 Lymph # 2.1 K/mm3 (1.2-5.4) 06/21/19 20:06 [place] # 0.5 K/mm3 (0.0-0.8) 06/21/19 20:06 Eos # 0.1 K/mm3 (0.0-0.4) 06/21/19 20:06 Baso # 0.0 K/mm3 (0.0-0.1) 06/21/19 20:06 Seg Neutrophils % 39.7 % (40.0-70.0) L 06/21/19 20:06 Seg Neutrophils # 1.8 K/mm3 (1.8-7.7) 06/21/19 20:06 ESR 1 mm/Hr (0-20) 06/27/19 11:10 PT 12.9 Sec. (12.2-14.9) 06/21/19 20:06 INR 0.96 (0.87-1.13) 06/21/19 20:06 APTT 34.3 Sec. (24.2-36.6) 06/21/19 20:06 Sodium 142 mmol/L (137-145) 06/26/19 16:46 Potassium 4.0 mmol/L (3.6-5.0) 06/26/19 16:46 Chloride 103.7 mmol/L (98-107) 06/26/19 16:46 Carbon Dioxide 25 mmol/L (22-30) 06/26/19 16:46 Anion Gap 17 mmol/L 06/26/19 16:46 BUN 17 mg/dL (7-17) 06/26/19 16:46 Creatinine 0.6 mg/dL (0.7-1.2) L 06/26/19 16:46 Estimated GFR > 60 ml/min 06/26/19 16:46 BUN/Creatinine Ratio 28 % 06/26/19 16:46 Glucose 119 mg/dL (65-100) H 06/26/19 16:46 POC Glucose 101 (70-105) 06/27/19 12:04 Lactic Acid 2.50 mmol/L (0.7-2.0) H* 06/27/19 00:48 Calcium 9.3 mg/dL (8.4-10.2) 06/26/19 16:46 Total Bilirubin 0.40 mg/dL (0.1-1.2) 06/21/19 20:06 AST 15 units/L (5-40) 06/21/19 20:06 ALT 11 units/L (7-56) 06/21/19 20:06 Alkaline Phosphatase 77 units/L (35-129) 06/21/19 20:06 Lactate Dehydrogenase 123 units/L (91-180) 06/27/19 11:10 Total Creatine Kinase 14 units/L (30-135) L 06/27/19 11:10 CK-MB (CK-2) < 1.0 ng/mL (0.0-4.0) 06/22/19 10:02 CK-MB (CK-2) Rel Index 3.7 (0-4) 06/22/19 10:02 Troponin T < 0.010 ng/mL (0.00-0.029) 06/26/19 18:37 C-Reactive Protein 0.00 mg/dL (0.00-1.30) 06/27/19 11:10 Total Protein 7.2 g/dL (6.3-8.2) 06/21/19 20:06 Albumin 4.2 g/dL (3.9-5) 06/21/19 20:06 Albumin/Globulin Ratio 1.4 % 06/21/19 20:06 Triglycerides 24 mg/dL (2-149) 06/23/19 06:06 Cholesterol 94 mg/dL (50-199) 06/23/19 06:06 LDL Cholesterol Direct 42 mg/dL (50-130) L 06/23/19 06:06 HDL Cholesterol 53 mg/dL (40-59) 06/23/19 06:06 Cholesterol/HDL Ratio 1.77 % 06/23/19 06:06 HCG, Quant < 2 mIU/mL (0-4) 06/21/19 20:19 CSF Appearance Clear 06/22/19 08:55 CSF Color Colorless 06/22/19 08:55 CSF WBC 35 /mm3 (1-10) 06/22/19 08:55 CSF RBC 4 /mm3 (0-0) 06/22/19 08:55 CSF Seg Neutrophils 6.8 % (0-6) 06/22/19 08:55 CSF Lymphocytes % 73.9 % (40-80) 06/22/19 08:55 CSF Reactive Lymphs 0 % 06/22/19 08:55 CSF Monocytes % 15.9 % (15-45) 06/22/19 08:55 CSF Eosinophils % 3.4 % 06/22/19 08:55 CSF Basophils 0 % 06/22/19 08:55 CSF Pathologist Review C 06/22/19 08:55 CSF Glucose 83 mg/dL 06/22/19 08:55 CSF Total Protein 28 mg/dL 06/22/19 08:55 CSF VDRL Nonreactive (Nonreactive) 06/22/19 08:55 Syphilis IgG Antibody Non-reactive (NonReactive) 06/23/19 13:18 Active Medications - Current Medications Current Medications: Generic Name Dose Route Start Last Admin Trade Name Freq PRN Reason Stop Dose Admin Acetaminophen 650 mg 06/22/19 03:42 06/25/19 22:38 Tylenol PO 650 mg Q4H PRN Administration Pain, Mild (1-3) Apixaban 5 mg 06/24/19 16:00 06/27/19 09:01 Eliquis PO 5 mg BID VY Administration Protocol Atorvastatin Calcium 40 mg 06/22/19 22:00 06/26/19 22:17 Lipitor PO 40 mg QHS VY Administration Bisacodyl 10 mg 06/22/19 03:42 Dulcolax RI QDAY PRN Constipation Ferrous Sulfate 325 mg 06/22/19 10:00 06/27/19 09:01 Feosol PO 325 mg QDAY VY Administration Acyclovir 1,000 mg/ Sodium 270 mls @ 180 mls/hr 06/26/19 06:00 06/27/19 06:33 Chloride IV 180 mls/hr Q8HR VY Administration Ceftriaxone Sodium 2 gm in 100 mls @ 200 mls/hr 06/26/19 21:00 06/26/19 22:16 Rocephin/Ns 2 Gm/100 Ml IV 200 mls/hr Q24H VY Administration Protocol Methylprednisolone Sodium 100 mls @ 200 mls/hr 06/27/19 11:00 06/27/19 12:19 Succinate 1,000 mg/ Sodium IV 06/29/19 08:00 200 mls/hr Chloride Q24HR VY Administration Levetiracetam 750 mg 06/24/19 12:00 06/27/19 09:01 Keppra PO 750 mg BID VY Administration Magnesium Hydroxide 30 ml 06/22/19 03:42 Milk Of Magnesia PO Q4H PRN Constipation Ondansetron HCl 4 mg 06/22/19 03:42 Zofran IV Q8H PRN Nausea And Vomiting Pantoprazole Sodium 40 mg 06/27/19 10:00 06/27/19 09:01 Protonix PO 40 mg BID VY Administration Prednisone 100 mg 06/27/19 10:00 06/27/19 09:04 Deltasone PO 100 mg QDAY VY Administration Prednisone 10 mg 06/27/19 10:00 06/27/19 09:01 Deltasone PO 10 mg QDAY VY Administration Sodium Chloride 10 ml 06/22/19 03:42 06/24/19 22:00 Sodium Chloride Flush Syringe 10 Ml IV 10 ml PRN PRN Administration LINE FLUSH Nutrition/Malnutrition Assess - Dietary Evaluation Nutrition/Malnutrition Findings: Nutrition Notes Start: 06/23/19 15:22 Freq: Status: Active Protocol: Document 06/23/19 15:22 LM (Rec: 06/23/19 15:24 LM [id number]) Nutrition Notes Need for Assessment generated from: coding and reimbursement specialist,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 Pt states eating well with no wt loss. Nutrition Intervention Revisit per MD consult or patient Sign Off request:
--- NOTE | 2019-06-27 15:25 | Magnetic Resonance Report ---
MR MRA/MRV head wo/w con INDICATION / CLINICAL INFORMATION: 28 years Female; abn lesions on brain, L optic neuritis, hx of PE. TECHNIQUE: 3-D evaluation for MR venography of the brain prior to and following contrast. COMPARISON: None available. FINDINGS: No signs of sinus thrombosis seen. The superior sagittal sinus, transverse sinuses, sigmoid sinuses, internal jugular veins, internal ce rebral veins, vein of Jorge, and straight sinus are all patent. IMPRESSION: No evidence of sinus thrombosis. Signer Name: Tan Pearson MD, III Signed: 06/27/2019 3:21 PM Workstation Name: [id number]
--- NOTE | 2019-06-27 15:28 | Progress Note ---
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 Possible due to acute optic neuritis; patient was off Eliquis for a month after recent PE. She has had no follow-up. She is not septic, no fever, no leukocytosis. Reports previous HIV test negative. CSF with elevated white blood cells at 35 with increased lymphocytes, normal glucose and normal protein; optic neuritis versus optic neuropathy with CSF pleocytosis. #Recent complicated stroke #Recent PE of anticoagulation Recommendations: Continue acyclovir 10 mg/kg IV every 8 hour for now F/u HSV PCR, CMV PCR, EBV PCR on CSF, HIV rapid test f/u UZAIR, C3, C4 No evidence of bacterial infection, Rocephin was d/roe d/w [facility] Carolina Gutierrez [facility] ([facility]) C: [phone] O: [phone] F: [phone] Subjective Date of service: 06/27/19 Principal diagnosis: Optic neuritis Interval history: No fever. No new complaints. Objective - Exam Narrative Exam: Physical Exam: Constitutional: Alert, cooperative. No acute distress. Hard of hearing Head, Ears, Nose: Normocephalic, atraumatic. External ears, nose normal Eyes: Conjunctivae/corneas clear. No icterus. No ptosis. Neck: Supple, no meningeal signs Cardiovascular: S1, S2 normal. Respiratory: Good air entry, clear to auscultation bilaterally GI: Soft, non-tender; bowel sounds normal. No peritoneal signs Musculoskeletal: No pedal edema, no cyanosis. Skin: No rash or abscess Hem/Lymphatic: No palpable cervical or supraclavicular nodes. No lymphangitis Psych: Mood ok. Affect normal Neurological: Awake, alert, oriented. Left sided blindness - Constitutional Vitals: Vital Signs Temp Pulse Resp BP Pulse Ox 98.0 F 93 H 18 116/82 96 06/27/19 07:49 06/27/19 11:00 06/27/19 07:49 06/27/19 11:00 06/27/19 07:49 Temperature -Last 24 Hours Temperature 98.0 F Temperature 97.7 F Temperature 98.1 F Temperature 98.1 F Temperature 97.2 F - Labs CBC & Chem 7: 06/23/19 06:06 06/26/19 16:46 Labs: Abnormal lab results 06/26/19 06/26/19 06/26/19 Range/Units 16:46 16:46 18:37 Creatinine 0.6 L (0.7-1.2) mg/dL Glucose 119 H (65-100) mg/dL POC Glucose (70-105) Lactic Acid 2.10 H* 2.50 H* (0.7-2.0) mmol/L Total Creatine Kinase (30-135) units/L 06/26/19 06/26/19 06/27/19 Range/Units 20:40 22:30 00:48 Creatinine (0.7-1.2) mg/dL Glucose (65-100) mg/dL POC Glucose 108 H (70-105) Lactic Acid 2.40 H* 2.50 H* (0.7-2.0) mmol/L Total Creatine Kinase (30-135) units/L 06/27/19 06/27/19 Range/Units 07:58 11:10 Creatinine (0.7-1.2) mg/dL Glucose (65-100) mg/dL POC Glucose 139 H (70-105) Lactic Acid (0.7-2.0) mmol/L Total Creatine Kinase 14 L (30-135) units/L
--- NOTE | 2019-06-27 17:25 | Cat Scan Report ---
CT CHEST WITH CONTRAST INDICATION / CLINICAL INFORMATION: w/u hilar lymphadenopathy, sarcoid . TECHNIQUE: Axial CT images were obtained through the chest after 100 cc Omnipaque [address] scans at this location are performed using CT dose reduction for ALARA by means of automated exposure contr ol. COMPARISON: None available. FINDINGS: Exam slightly limited secondary to respiratory motion artifact. HEART: No significant abnormality. THORACIC AORTA: No significant abnormality. MEDIASTINUM and NOEMI: No significant abnormality. LUNGS: Linear bibasilar atelectasis. No acute air space or interstitial disease. PLEURA: No significant pleural effusion. No pneumothorax. ADDITIONAL FINDINGS: None. UPPER ABDOMEN: No significant abnormality. SKELETAL SYSTEM: No significant abnormality. IMPRESSION: 1. No significant abnormality. Specifically, no hilar or mediastinal adenopathy or interstitial lung disease to suggest sarcoidosis Signer Name: Jayson Bardales MD Signed: 06/27/2019 5:20 PM Workstation Name: [id number]
--- NOTE | 2019-06-28 05:24 | Physician Progress Note ---
I made an independent review of this MRI scan and the CT scan with Dr. Hester today on Thursday. Going over the CT scan that was done about 3 days ago, the CT scan was clearly normal and I agree my independent review it looks normal as well. Reviewing over the contrast and noncontrast MRI, neither Dr. Hester or myself see this supposed precentral gyrus area of questionable pathology in the left precentral area that is not detected on the MRI scan either by my or Dr. Hester's review. There is a question whether there may be an area of focal irregularity in the dorsal medullary plate, this is minimal. It was not seen on the CT scan later, but questionably is on the MRI scan, but this is a very small area. I will comment on the periventricular areas of increased white matter signal. I do not think these represent plaque and neither does Dr. Hester and the reason for saying that is, they are fairly symmetrical, do not have the configuration of a plaque, but nonetheless may represent some type of perivenular increased water intake and may be more an anatomical finding within the perivenular system, but are clearly are not the changes that are seen with MS because they are bilateral, symmetrical, very anatomical within the subependymoma, which is not where MS plaques show up. Nonetheless, if this question arises, obviously a repeat MRI within 10 days might be indicated. At this point, I do not see any new lesions. There is no new pathology. There is this question as to whether the patient had optic neuritis. This is not commented on at this time because I am not sure that the MR is equivalent for this test. I certainly do not see evidence of stroke, tumor, an evolving brain edema or any evolving brain infection. I think that this does not meet the diagnostic criteria of MS by MR criteria, but followup is recommended nonetheless. JOB# [id number] JENNIFER/SANDI
[2019-06-28] MEDS: SODIUM CHLORIDE 0.9% IV SCH ×2 (06:38→14:21)
[2019-06-28] MEDS: ACYCLOVIR IV SCH ×2 (06:38→14:21)
[2019-06-28 07:58] LABS: Hematocrit 40.1 % (30.3-42.9); Mean Corpuscular HGB Conc 33 % (30-34); Mean Corpuscular Volume 77 fl (79-97); Platelet Count 204 K/mm3 (140-440); Red Blood Count 5.19 M/mm3 (3.65-5.03); Red Cell Distribution Width 19.8 % (13.2-15.2)
[2019-06-28 08:19] LABS: BUN/Creatinine Ratio 32; Blood Urea Nitrogen 16 mg/dL (7-17); Calcium 8.6 mg/dL (8.4-10.2); Hemolysis Index 72
[2019-06-28] MEDS: levETIRAcetam 500 MG TAB PO SCH ×2 (09:49→21:18)
[2019-06-28] MEDS: APIXABAN 5 MG TAB PO SCH ×2 (09:49→21:18)
[2019-06-28] MEDS: PANTOPRAZOLE 40 MG TAB PO SCH ×2 (09:50→21:18)
[2019-06-28] MEDS: FERROUS SULFATE 325 MG TAB PO SCH (09:50)
[2019-06-28] MEDS: methylPREDNISolone Sod Suc 1,000 MG in SODIUM CHLORIDE 0.9% 100 ML IV SCH (09:50)
--- NOTE | 2019-06-28 10:08 | Progress Note ---
Assessment and Plan L optic neuritis w cerebral lesions gliosis L precentral corpus and cerebellum, these didnt enhance, but b/l optic nerves enhanced L>R on MRI b, improving on IV steroids, concern for underlying auto/inflamm COMMISSION BROKER dis MS vs NMO/MOG, no evid of sarcoid or VST continue IV high dose steroids for another day will reassess for IVIG tomorrow, may start thrusday abnormal MRI b, multiple lesions, MS lesions vs multiple ch embolic strokes , L medullary lesion, cerebellar lesions, L cerebral lesions precentral gyrus and corpus, L ptosis w R face droop : I dont see any lesions in the midbrain or vinicio, the medulla wouldnt explain the L ptosis and R face droop, R droop may d/t prior stroke L precentral gyrus , is pts CN palsys d/t : ddx ...MS/inflamm, infection/viral, this a variant of GBS bickerstaff, LMN dis, but pt is not worsening and findings are asymm, vs vs multiple embolic strokes brain stem / pts L ptosis may be d/t inflammation of 2nd CN seeing that branch off CN II that is responsible for inn. of levator palpebrea sup. mus. are in close proximity, also consider lat medullary syndrome hoarse voice and loss of contralat pain temp poss incomplete horners, vs recovering listeria infection LOC prior hx of seizures during coma w abn brain MRI , EEG was read as normal, cont. keppra in concern for Gen epilepsy Multiple COMMISSION BROKER lesions , low burden overall, non enhancing poss MS/inflamm, vs autoimm/para, vs infectious cont. acyclovir f/u CSF hx of PE and ? L medullary stroke , insitu clot formation, i think pt had shower emboli causing brain and brain stem insults, cont eliquis send for hypercoag workup / HEME we need records from [facility] and [facility] [place] I would like to compare my exam and results f/u send out tests mentioned in prior notes no signs or sx of spinal cord lesions, no sensory level , pain , increased reflexes or UMN signs , PA are downgoing Subjective Date of service: 06/28/19 Principal diagnosis: Optic neuritis Interval history: L eye is better per patient in terms of vision of note optic nerves were mentioned to enhance b/l, L > R pt story is unfortun. not consistent, now she is adding that she went to [facility] for L sided weakness after she woke up from the coma and was sent home, then she p/w L sided weakness sometime over last two months now she states her L arm is not weak, then she says its heavy ? pt shows me a pic of herself after coma, her R eye was drooped, now L eye is drooped no MCKEON no new neuro complaints ronnie. steroids no muscle pains thus far the lab w/u mentioned yesterday has been neg pt doesnt seem to be in an inflamm state MRV seems w/o central clot, viewed images, cant open report [facility] issue, called IT CT chest no hilar findings to sugg sarcoid acyclovir on board high dose steroids on board eliquis fever, no leukocytosis LDH CRP CK LFT all normal summary : history of hypertension, obesity, hyperlipidemia, previous pulmonary e mbolism and recent CVA with residual right facial droop, decreased vision in the left eye, decreased hearing in the left ear associated with left ear side swelling and leakage recent prolonged admission at [facility] since January for encephalitis poss. d/t virus 2018 to May 03, 2019 now w new L eye loss of acuity cont. L hearing issues and right face droop and L sided heaviness feeling all present since waking up from coma : pending HSV PCR, CMV PCR, EBV PCR on CSF, HIV rapid test Objective - Exam Narrative Exam: aaox4 no aphasia dysarthia present mild L ptosis, dont see L 3rd palsy today, EOMI yesterday : at diff. times, L eye movements seem delayed and to yoking well face equal pain and temp R facial droop asymm smile uvula midline , no palatal myoclonus pupils reactive w L APD good corneal b/l , no loss of soft palate, no nystagmus no increased reflexes babinski is neg b/l L arm 4/5 w drift remaining limbs 5/5 sensory intact to LT everywhere, no sensory level BUT right side of body diminished pain temp hoarse voice neck supple poor hearing no aphasia no agnosia tone symm mild L cerebellar signs L UE but HTS is intact - Vital Sign Vital Signs - 12hr 06/28/19 06/28/19 00:33 04:50 Temperature 97.5 F L 97.3 F L Pulse Rate 55 L 48 L Respiratory 20 20 Rate Blood Pressure 118/67 122/69 O2 Sat by Pulse 95 94 Oximetry - Laboratory Findings CBC and BMP: 06/28/19 07:16 06/28/19 07:16 Abnormal Lab Findings: Abnormal Labs 06/21/19 06/21/19 06/22/19 20:06 20:06 10:02 RBC 5.26 H MCV 77 L MCH 25 L RDW 20.1 H Lymph % (Auto) 47.5 H [place] % (Auto) 10.1 H Seg Neutrophils % 39.7 L Carbon Dioxide Creatinine 0.6 L Glucose POC Glucose Lactic Acid Total Creatine Kinase 27 L LDL Cholesterol Direct 06/23/19 06/23/19 06/23/19 06:06 06:06 18:40 RBC 5.24 H MCV 78 L MCH 25 L RDW 19.9 H Lymph % (Auto) [place] % (Auto) Seg Neutrophils % Carbon Dioxide 19 L Creatinine 0.5 L Glucose 155 H POC Glucose 126 H Lactic Acid Total Creatine Kinase LDL Cholesterol Direct 42 L 06/23/19 06/24/19 06/24/19 20:11 19:57 21:27 RBC MCV MCH RDW Lymph % (Auto) [place] % (Auto) Seg Neutrophils % Carbon Dioxide Creatinine Glucose POC Glucose 132 H 125 H 118 H Lactic Acid Total Creatine Kinase LDL Cholesterol Direct 06/25/19 06/25/19 06/25/19 12:04 16:01 20:41 RBC MCV MCH RDW Lymph % (Auto) [place] % (Auto) Seg Neutrophils % Carbon Dioxide Creatinine Glucose POC Glucose 128 H 124 H 222 H Lactic Acid Total Creatine Kinase LDL Cholesterol Direct 06/26/19 06/26/19 06/26/19 08:34 11:29 16:46 RBC MCV MCH RDW Lymph % (Auto) [place] % (Auto) Seg Neutrophils % Carbon Dioxide Creatinine Glucose POC Glucose 132 H 165 H Lactic Acid 2.10 H* Total Creatine Kinase LDL Cholesterol Direct 06/26/19 06/26/19 06/26/19 16:46 18:37 20:40 RBC MCV MCH RDW Lymph % (Auto) [place] % (Auto) Seg Neutrophils % Carbon Dioxide Creatinine 0.6 L Glucose 119 H POC Glucose 108 H Lactic Acid 2.50 H* Total Creatine Kinase LDL Cholesterol Direct 06/26/19 06/27/19 06/27/19 22:30 00:48 07:58 RBC MCV MCH RDW Lymph % (Auto) [place] % (Auto) Seg Neutrophils % Carbon Dioxide Creatinine Glucose POC Glucose 139 H Lactic Acid 2.40 H* 2.50 H* Total Creatine Kinase LDL Cholesterol Direct 06/27/19 06/27/19 06/27/19 11:10 15:55 22:29 RBC MCV MCH RDW Lymph % (Auto) [place] % (Auto) Seg Neutrophils % Carbon Dioxide Creatinine Glucose POC Glucose 165 H 116 H Lactic Acid Total Creatine Kinase 14 L LDL Cholesterol Direct 06/28/19 06/28/19 06/28/19 07:16 07:16 08:12 RBC 5.19 H MCV 77 L MCH 25 L RDW 19.8 H Lymph % (Auto) [place] % (Auto) Seg Neutrophils % Carbon Dioxide 20 L Creatinine 0.5 L Glucose 138 H POC Glucose 155 H Lactic Acid Total Creatine Kinase LDL Cholesterol Direct
--- NOTE | 2019-06-28 10:28 | Progress Note ---
Assessment and Plan Chest pain, atypical cycled troponins are normal. ECG is benign. Optic neuritis Hypertension Obesity Prior CVA Hx of PE requiring trach placement in the recent past on eliquis An echocardiogram reports a normal left ventricular systolic function, ejection fraction 50-55%. Conservative cardiac management. We will follow intermittently. Subjective Date of service: 06/28/19 Principal diagnosis: Optic neuritis Interval history: No cardiac complaints. Objective Vital Signs Temp Pulse Pulse Pulse Resp BP BP 06/28/19 04:50 97.3 F L 48 L 20 122/69 06/28/19 00:33 97.5 F L 55 L 20 118/67 06/27/19 22:00 46 L 06/27/19 20:07 98.9 F 45 L 20 116/70 06/27/19 19:00 78 20 06/27/19 15:42 98.2 F 54 L 18 113/63 06/27/19 11:30 51 L 06/27/19 11:00 93 H 116/82 Pulse Ox 06/28/19 04:50 94 06/28/19 00:33 95 06/27/19 22:00 06/27/19 20:07 93 06/27/19 19:00 99 06/27/19 15:42 98 06/27/19 11:30 06/27/19 11:00 - Physical Examination General: No Apparent Distress HEENT: Positive: PERRL Neck: Positive: trachea midline Cardiac: Positive: Reg Rate and Rhythm Lungs: Positive: Decreased Breath Sounds Neuro: Positive: Weakness Extremities: Absent: edema - Labs and Meds Cardiac Enzymes 06/27/19 Range/Units 11:10 Lactate Dehydrogenase 123 (91-180) units/L CBC 06/28/19 Range/Units 07:16 WBC 7.9 (4.5-11.0) K/mm3 RBC 5.19 H (3.65-5.03) M/mm3 Hgb 13.0 (10.1-14.3) gm/dl Hct 40.1 (30.3-42.9) % Plt Count 204 (140-440) K/mm3 Comprehensive Metabolic Panel 06/28/19 Range/Units 07:16 Sodium 139 (137-145) mmol/L Potassium 4.5 (3.6-5.0) mmol/L Chloride 103.2 (98-107) mmol/L Carbon Dioxide 20 L (22-30) mmol/L BUN 16 (7-17) mg/dL Creatinine 0.5 L (0.7-1.2) mg/dL Glucose 138 H (65-100) mg/dL Calcium 8.6 (8.4-10.2) mg/dL
--- NOTE | 2019-06-28 10:48 | Progress Note ---
Assessment and Plan Left vision loss of acuity without pain MRI suggestive of enhancement to left optic nerve, and lesions that look old in the left medulla but possible inflammatory lesion in the left precentral gyrus, corpus callosum. 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 Oligoclonal bands I do not see any results I sent out NMO MOG Neuro axis imaging I do not see any results for bilateral lower extremity weakness prior to, encephalopathy? TM Check CK HIV ESR CRP LDH KAITLYNN Lyme EBV is pending along with CSF culture results Get records from [facility] outside hospital so we do not repeat unnecessary test Check CT chest for sarcoid Check MRV for central clot 2 more days of IV Solu-Medrol 1000 Continue acyclovir We will consider IVIG Eliquis for PE I would like to [facility] to eval if pt has a lesion on her spine ? --- MRI brain reviewed Subtle lesions with increased flair intensities are seen in the cerebellar white matter along with cerebellar involution namely cerebellar vermis mammillary bodies are not seen Focal lesion in left lateral precentral gyrus appears Y-shaped subcortical focal lesion no abnormal enhancement increased signal intensity seen along the inferior part of the corpus callosum Enhancement of the optic nerve along with optic chiasm Cerebral and cerebellar involution's --- Subjective Date of service: 06/27/19 Principal diagnosis: Optic neuritis Interval history: my prior progress note initiated 06/26 is not on [employer] the following is PROGRESS NOTE for pt TommyDhruvAnil for 06/26, NEURO Patient describes normal childhood and early adult life up to last summer 2018 when she lost feeling in her legs x 2 event went to a local hospital twice no diagnosis was given to me by the patient of why her lower extremities got weak , ? TM, and then in January she went into a coma with seizures , biting off half of her tongue , and that was concern for a viral encephalitis per patient's she was in the hospital from January to the beginning of Apr ...waking up s/p trach ..her vision was normal but she had right facial droop and left-sided heaviness and decreased hearing she had a stroke ? L lat medulla, this could have been an infection listeria ? No recurrent seizures since April where she was coming out of a coma status post trach "I was vaping on control heavy menses low iron" "that is why I got clots in my lung and strokes" Patient has 6 children MRI brain with con was reviewed cerebral and cerebellar atrophy vermis, left medullary lesion old, left precentral gyrus, pete gisell, cerebellum lesions increased T 2, along with left optic n enhancement No records to review from outside hospital Today orthostatics were within normal limits patient denies any exposure to HIV and agrees for testing Since being in a coma from January to April patient did wake up again with right-sided facial droop and left-sided on and off feeling heavy Since admission no new neurological events except for the new left vision blurriness was her presentation, which was seen by other neurologist at this hospital concerning for MS optic neuritis inflammatory she is status post 3 days of steroids which showed some improvement up to thursday but then worsened over the weekend while being on oral steroids once yesterday Patient still feels unsteady with walking, she passed out, LOC, was started on keppra for concern for sz, EEG was neg No fevers no rash no photophobia no fluctuating in altered mental status or hallucinations Patient is very hard of hearing, she feels her left side is still heavy off-and-on Outside records are not here I am trying not to repeat any testing I am not sure what the lower extremity weakness prior to encephalopathy, was this a transverse myelitis there is no MRV and there is no MRI of the neuro axis to review Patient does complain of a mild headache Patient again denies any neurological history prior to this past summer when her lower extremities went weak x2 that was around December and then in January she goes into a coma I reviewed the MRI imaging and the left medullary lesion may be old does not show any signs of current acute stroke or infection however there is some gliosis which I do agree seen in the left precentral gyrus and some increased atrophy for age LFT normal lactic acid elevated, BG slight elevation CSF pleo , lymph 35 WBC , low prot Objective - Exam Narrative Exam: AAO x4 no aphasia positive dysarthria left side feels heavy left arm drift sensory is intact to all limbs no sensory level Left ptosis left mild 3rd nerve palsy pupil sparing, left APD, left blurry vision decreased acuity, no pain with left eye movements, no inflammatory or proptosis, right facial droop, decreased hearing bilateral greater on the left side, rest of cranial nerves are intact there is no palatal myoclonus tongue does show left-sided kevin-injury 5/5 to all limbs except for mild left upper extremity weakness Mild cerebellar signs left upper extremity Deep tendon reflexes are 2+ throughout Mild ataxic stance with unsteady gait and feeling dizzy with standing Hirsutism - Vital Sign Vital Signs - 12hr 06/28/19 06/28/19 00:33 04:50 Temperature 97.5 F L 97.3 F L Pulse Rate 55 L 48 L Respiratory 20 20 Rate Blood Pressure 118/67 122/69 O2 Sat by Pulse 95 94 Oximetry - Laboratory Findings CBC and BMP: 06/28/19 07:16 06/28/19 07:16 Abnormal Lab Findings: Abnormal Labs 06/21/19 06/21/19 06/22/19 20:06 20:06 10:02 RBC 5.26 H MCV 77 L MCH 25 L RDW 20.1 H Lymph % (Auto) 47.5 H [place] % (Auto) 10.1 H Seg Neutrophils % 39.7 L Carbon Dioxide Creatinine 0.6 L Glucose POC Glucose Lactic Acid Total Creatine Kinase 27 L LDL Cholesterol Direct 06/23/19 06/23/19 06/23/19 06:06 06:06 18:40 RBC 5.24 H MCV 78 L MCH 25 L RDW 19.9 H Lymph % (Auto) [place] % (Auto) Seg Neutrophils % Carbon Dioxide 19 L Creatinine 0.5 L Glucose 155 H POC Glucose 126 H Lactic Acid Total Creatine Kinase LDL Cholesterol Direct 42 L 06/23/19 06/24/19 06/24/19 20:11 19:57 21:27 RBC MCV MCH RDW Lymph % (Auto) [place] % (Auto) Seg Neutrophils % Carbon Dioxide Creatinine Glucose POC Glucose 132 H 125 H 118 H Lactic Acid Total Creatine Kinase LDL Cholesterol Direct 06/25/19 06/25/19 06/25/19 12:04 16:01 20:41 RBC MCV MCH RDW Lymph % (Auto) [place] % (Auto) Seg Neutrophils % Carbon Dioxide Creatinine Glucose POC Glucose 128 H 124 H 222 H Lactic Acid Total Creatine Kinase LDL Cholesterol Direct 06/26/19 06/26/19 06/26/19 08:34 11:29 16:46 RBC MCV MCH RDW Lymph % (Auto) [place] % (Auto) Seg Neutrophils % Carbon Dioxide Creatinine Glucose POC Glucose 132 H 165 H Lactic Acid 2.10 H* Total Creatine Kinase LDL Cholesterol Direct 06/26/19 06/26/19 06/26/19 16:46 18:37 20:40 RBC MCV MCH RDW Lymph % (Auto) [place] % (Auto) Seg Neutrophils % Carbon Dioxide Creatinine 0.6 L Glucose 119 H POC Glucose 108 H Lactic Acid 2.50 H* Total Creatine Kinase LDL Cholesterol Direct 06/26/19 06/27/19 06/27/19 22:30 00:48 07:58 RBC MCV MCH RDW Lymph % (Auto) [place] % (Auto) Seg Neutrophils % Carbon Dioxide Creatinine Glucose POC Glucose 139 H Lactic Acid 2.40 H* 2.50 H* Total Creatine Kinase LDL Cholesterol Direct 06/27/19 06/27/19 06/27/19 11:10 15:55 22:29 RBC MCV MCH RDW Lymph % (Auto) [place] % (Auto) Seg Neutrophils % Carbon Dioxide Creatinine Glucose POC Glucose 165 H 116 H Lactic Acid Total Creatine Kinase 14 L LDL Cholesterol Direct 06/28/19 06/28/19 06/28/19 07:16 07:16 08:12 RBC 5.19 H MCV 77 L MCH 25 L RDW 19.8 H Lymph % (Auto) [place] % (Auto) Seg Neutrophils % Carbon Dioxide 20 L Creatinine 0.5 L Glucose 138 H POC Glucose 155 H Lactic Acid Total Creatine Kinase LDL Cholesterol Direct
--- NOTE | 2019-06-28 12:14 | Progress Note ---
Assessment and Plan Assessment and plan: Acute optic neuritis. CSF pleocytosis. CSF revealed elevated WBC with increased lymphocytes. Continue steroids and acyclovir 10 mg/kilogram IV every 8 hours per ID recommendation. Follow-up HSV PCR, CMV PCR, EBV PCR on CSF and HIV testing. Also, follow-up UZAIR, C3-C4. Recent complicated CVA. Continue PT/OT Recent PE. Patient with previous pulmonary embolism was noncompliant with Eliquis. Currently on Eliquis. Hypertension. Continue antihypertensive medications. History Interval history: No new issues overnight. Hospitalist Physical - Constitutional Vitals: Temp Pulse Resp BP Pulse Ox 97.3 F L 48 L 20 122/69 94 06/28/19 04:50 06/28/19 04:50 06/28/19 04:50 06/28/19 04:50 06/28/19 04:50 General appearance: Present: no acute distress - EENT Eyes: Present: PERRL, EOM intact ENT: hearing intact, clear oral mucosa, dentition normal - Neck Neck: Present: supple, normal ROM - Respiratory Respiratory effort: normal Respiratory: bilateral: CTA - Cardiovascular Rhythm: regular Heart Sounds: Present: S1 & S2. Absent: gallop, rub - Extremities Extremities: no ischemia, No edema, Full ROM - Abdominal General gastrointestinal: soft, non-tender, non-distended, normal bowel sounds - Integumentary Integumentary: Present: clear, warm, dry - Neurologic Neurologic: CNII-XII intact, moves all extremities Results - Labs CBC & Chem 7: 06/28/19 07:16 06/28/19 07:16 Labs: Laboratory Last Values WBC 7.9 K/mm3 (4.5-11.0) 06/28/19 07:16 RBC 5.19 M/mm3 (3.65-5.03) H 06/28/19 07:16 Hgb 13.0 gm/dl (10.1-14.3) 06/28/19 07:16 Hct 40.1 % (30.3-42.9) 06/28/19 07:16 MCV 77 fl (79-97) L 06/28/19 07:16 MCH 25 pg (28-32) L 06/28/19 07:16 MCHC 33 % (30-34) 06/28/19 07:16 RDW 19.8 % (13.2-15.2) H 06/28/19 07:16 Plt Count 204 K/mm3 (140-440) 06/28/19 07:16 Lymph % (Auto) 47.5 % (13.4-35.0) H 06/21/19 20:06 [place] % (Auto) 10.1 % (0.0-7.3) H 06/21/19 20:06 Eos % (Auto) 2.2 % (0.0-4.3) 06/21/19 20:06 Baso % (Auto) 0.5 % (0.0-1.8) 06/21/19 20:06 Lymph # 2.1 K/mm3 (1.2-5.4) 06/21/19 20:06 [place] # 0.5 K/mm3 (0.0-0.8) 06/21/19 20:06 Eos # 0.1 K/mm3 (0.0-0.4) 06/21/19 20:06 Baso # 0.0 K/mm3 (0.0-0.1) 06/21/19 20:06 Seg Neutrophils % 39.7 % (40.0-70.0) L 06/21/19 20:06 Seg Neutrophils # 1.8 K/mm3 (1.8-7.7) 06/21/19 20:06 ESR 1 mm/Hr (0-20) 06/27/19 11:10 PT 12.9 Sec. (12.2-14.9) 06/21/19 20:06 INR 0.96 (0.87-1.13) 06/21/19 20:06 APTT 34.3 Sec. (24.2-36.6) 06/21/19 20:06 Sodium 139 mmol/L (137-145) 06/28/19 07:16 Potassium 4.5 mmol/L (3.6-5.0) 06/28/19 07:16 Chloride 103.2 mmol/L (98-107) 06/28/19 07:16 Carbon Dioxide 20 mmol/L (22-30) L 06/28/19 07:16 Anion Gap 20 mmol/L 06/28/19 07:16 BUN 16 mg/dL (7-17) 06/28/19 07:16 Creatinine 0.5 mg/dL (0.7-1.2) L 06/28/19 07:16 Estimated GFR > 60 ml/min 06/28/19 07:16 BUN/Creatinine Ratio 32 % 06/28/19 07:16 Glucose 138 mg/dL (65-100) H 06/28/19 07:16 POC Glucose 155 (70-105) H 06/28/19 08:12 Lactic Acid 2.50 mmol/L (0.7-2.0) H* 06/27/19 00:48 Calcium 8.6 mg/dL (8.4-10.2) 06/28/19 07:16 Total Bilirubin 0.40 mg/dL (0.1-1.2) 06/21/19 20:06 AST 15 units/L (5-40) 06/21/19 20:06 ALT 11 units/L (7-56) 06/21/19 20:06 Alkaline Phosphatase 77 units/L (35-129) 06/21/19 20:06 Lactate Dehydrogenase 123 units/L (91-180) 06/27/19 11:10 Total Creatine Kinase 14 units/L (30-135) L 06/27/19 11:10 CK-MB (CK-2) < 1.0 ng/mL (0.0-4.0) 06/22/19 10:02 CK-MB (CK-2) Rel Index 3.7 (0-4) 06/22/19 10:02 Troponin T < 0.010 ng/mL (0.00-0.029) 06/26/19 18:37 C-Reactive Protein 0.00 mg/dL (0.00-1.30) 06/27/19 11:10 Total Protein 7.2 g/dL (6.3-8.2) 06/21/19 20:06 Albumin 4.2 g/dL (3.9-5) 06/21/19 20:06 Albumin/Globulin Ratio 1.4 % 06/21/19 20:06 Triglycerides 24 mg/dL (2-149) 06/23/19 06:06 Cholesterol 94 mg/dL (50-199) 06/23/19 06:06 LDL Cholesterol Direct 42 mg/dL (50-130) L 06/23/19 06:06 HDL Cholesterol 53 mg/dL (40-59) 06/23/19 06:06 Cholesterol/HDL Ratio 1.77 % 06/23/19 06:06 HCG, Quant < 2 mIU/mL (0-4) 06/21/19 20:19 CSF Appearance Clear 06/22/19 08:55 CSF Color Colorless 06/22/19 08:55 CSF WBC 35 /mm3 (1-10) 06/22/19 08:55 CSF RBC 4 /mm3 (0-0) 06/22/19 08:55 CSF Seg Neutrophils 6.8 % (0-6) 06/22/19 08:55 CSF Lymphocytes % 73.9 % (40-80) 06/22/19 08:55 CSF Reactive Lymphs 0 % 06/22/19 08:55 CSF Monocytes % 15.9 % (15-45) 06/22/19 08:55 CSF Eosinophils % 3.4 % 06/22/19 08:55 CSF Basophils 0 % 06/22/19 08:55 CSF Pathologist Review C 06/22/19 08:55 CSF Glucose 83 mg/dL 06/22/19 08:55 CSF Total Protein 28 mg/dL 06/22/19 08:55 CSF VDRL Nonreactive (Nonreactive) 06/22/19 08:55 Syphilis IgG Antibody Non-reactive (NonReactive) 06/23/19 13:18 Active Medications - Current Medications Current Medications: Generic Name Dose Route Start Last Admin Trade Name Freq PRN Reason Stop Dose Admin Acetaminophen 650 mg 06/22/19 03:42 06/25/19 22:38 Tylenol PO 650 mg Q4H PRN Administration Pain, Mild (1-3) Apixaban 5 mg 06/24/19 16:00 06/28/19 09:49 Eliquis PO 5 mg BID VY Administration Protocol Atorvastatin Calcium 40 mg 06/22/19 22:00 06/27/19 21:45 Lipitor PO 40 mg QHS VY Administration Bisacodyl 10 mg 06/22/19 03:42 Dulcolax [place] QDAY PRN Constipation Ferrous Sulfate 325 mg 06/22/19 10:00 06/28/19 09:50 Feosol PO 325 mg QDAY VY Administration Acyclovir 1,000 mg/ Sodium 270 mls @ 180 mls/hr 06/26/19 06:00 06/28/19 06:38 Chloride IV 180 mls/hr Q8HR VY Administration Methylprednisolone Sodium 100 mls @ 200 mls/hr 06/27/19 11:00 06/28/19 09:50 Succinate 1,000 mg/ Sodium IV 06/29/19 08:00 200 mls/hr Chloride Q24HR VY Administration Levetiracetam 750 mg 06/24/19 12:00 06/28/19 09:49 Keppra PO 750 mg BID VY Administration Magnesium Hydroxide 30 ml 06/22/19 03:42 Milk Of Magnesia PO Q4H PRN Constipation Ondansetron HCl 4 mg 06/22/19 03:42 Zofran IV Q8H PRN Nausea And Vomiting Pantoprazole Sodium 40 mg 06/27/19 10:00 06/28/19 09:50 Protonix PO 40 mg BID VY Administration Sodium Chloride 10 ml 06/22/19 03:42 06/27/19 21:45 Sodium Chloride Flush Syringe 10 Ml IV 10 ml PRN PRN Administration LINE FLUSH Nutrition/Malnutrition Assess - Dietary Evaluation Nutrition/Malnutrition Findings: Nutrition Notes Start: 06/23/19 15:22 Freq: Status: Active Protocol: Document 06/23/19 15:22 LM (Rec: 06/23/19 15:24 LM [email or web address]) Nutrition Notes Need for Assessment generated from: retirement village manager,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 Pt states eating well with no wt loss. Nutrition Intervention Revisit per MD consult or patient Sign Off request:
[2019-06-28 14:31] LABS: HIV-1 RNA QN PCR <1.30 Log cps/mL; HIV-1 RNA QN PCR <20 Copies/mL
--- NOTE | 2019-06-28 14:39 | Progress Note ---
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 Possible due to acute optic neuritis; patient was off Eliquis for a month after recent PE. She has had no follow-up. She is not septic, no fever, no leukocytosis. CSF with elevated white blood cells at 35 with increased lymphocytes, normal glucose and normal protein; optic neuritis versus optic neuropathy with CSF pleocytosis. HIV negative. #Recent complicated stroke #Recent PE of anticoagulation Recommendations: HSV PCR on CSF is negative, spoke to micro lab (labs are scanned). VZV PCR and Enterovirus PCR are pending but less likely to be positive. Will follow f/u UZAIR, C3, C4 Acyclovir discontinued Iftikhar Gutierrez MD, FACP [facility] C: [phone] O: [phone] F: [phone] Subjective Date of service: 06/28/19 Principal diagnosis: Optic neuritis Interval history: No fever. No new complaints. No pain. Objective - Exam Narrative Exam: Physical Exam: Constitutional: Alert, cooperative. No acute distress. Hard of hearing Head, Ears, Nose: Normocephalic, atraumatic. External ears, nose normal Eyes: Conjunctivae/corneas clear. No icterus. No ptosis. Left eye blindness Neck: Supple, no meningeal signs Cardiovascular: S1, S2 normal. Respiratory: Good air entry, clear to auscultation bilaterally GI: Soft, non-tender; bowel sounds normal. No peritoneal signs Musculoskeletal: No pedal edema, no cyanosis. Skin: No rash or abscess Hem/Lymphatic: No palpable cervical or supraclavicular nodes. No lymphangitis Psych: Mood ok. Affect normal Neurological: Awake, alert, oriented. Left sided blindness - Constitutional Vitals: Vital Signs Temp Pulse Resp BP Pulse Ox 97.6 F 53 L 20 121/80 98 06/28/19 11:54 06/28/19 11:54 06/28/19 11:54 06/28/19 11:54 06/28/19 11:54 Temperature -Last 24 Hours Temperature 97.6 F Temperature 97.9 F Temperature 97.3 F Temperature 97.5 F Temperature 98.9 F Temperature 98.2 F - Labs CBC & Chem 7: 06/28/19 07:16 06/28/19 07:16 Labs: Abnormal lab results 06/27/19 06/27/19 06/28/19 Range/Units 15:55 22:29 07:16 RBC 5.19 H (3.65-5.03) M/mm3 MCV 77 L (79-97) fl MCH 25 L (28-32) pg RDW 19.8 H (13.2-15.2) % Carbon Dioxide (22-30) mmol/L Creatinine (0.7-1.2) mg/dL Glucose (65-100) mg/dL POC Glucose 165 H 116 H (70-105) 06/28/19 06/28/19 06/28/19 Range/Units 07:16 08:12 12:06 RBC (3.65-5.03) M/mm3 MCV (79-97) fl MCH (28-32) pg RDW (13.2-15.2) % Carbon Dioxide 20 L (22-30) mmol/L Creatinine 0.5 L (0.7-1.2) mg/dL Glucose 138 H (65-100) mg/dL POC Glucose 155 H 114 H (70-105)
[2019-06-28] MEDS: ACETAMINOPHEN 325 MG TAB PO PRN (21:18)
[2019-06-28 22:36] LABS: ANA Screen, IFA Negative (Negative)
[2019-06-29] MEDS: FERROUS SULFATE 325 MG TAB PO SCH (10:07)
[2019-06-29] MEDS: levETIRAcetam 500 MG TAB PO SCH ×2 (10:09→21:24)
[2019-06-29] MEDS: APIXABAN 5 MG TAB PO SCH ×2 (10:09→21:22)
[2019-06-29] MEDS: PANTOPRAZOLE 40 MG TAB PO SCH ×2 (10:09→21:22)
--- NOTE | 2019-06-29 10:30 | Progress Note ---
Assessment and Plan Chest pain, atypical cycled troponins are normal. ECG is benign. Optic neuritis Hypertension Obesity Prior CVA Hx of PE requiring trach placement in the recent past on eliquis An echocardiogram reports a normal left ventricular systolic function, ejection fraction 50-55%. Conservative cardiac management. We will follow intermittently. Subjective Date of service: 06/29/19 Principal diagnosis: Optic neuritis Interval history: Patient has no cardiac complaints. No distress noted. Objective Vital Signs Temp Pulse Resp BP Pulse Ox 06/29/19 08:26 97.6 F 47 L 18 126/67 99 06/29/19 04:11 97.8 F 47 L 16 152/77 96 06/28/19 23:16 98.0 F 45 L 16 124/80 98 06/28/19 21:18 20 06/28/19 19:21 98.1 F 48 L 16 131/68 99 06/28/19 16:36 97.0 F L 51 L 20 113/67 96 06/28/19 11:54 97.6 F 53 L 20 121/80 98 - Physical Examination General: No Apparent Distress HEENT: Positive: PERRL Neck: Positive: trachea midline Cardiac: Positive: Reg Rate and Rhythm Lungs: Positive: Decreased Breath Sounds Neuro: Positive: Weakness Extremities: Absent: edema
--- NOTE | 2019-06-29 10:31 | Progress Note ---
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 Possible due to acute optic neuritis; patient was off Eliquis for a month after recent PE. She has had no follow-up. She is not septic, no fever, no leukocytosis. CSF with elevated white blood cells at 35 with increased lymphocytes, normal glucose and normal protein; optic neuritis versus optic neuropathy with CSF pleocytosis. HIV negative. UZAIR, C3, C4. 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 #Recent complicated stroke #Recent PE of anticoagulation Recommendations: continue off antibiotics and anti-virals ID will sign off. Please call with questions. Iftikhar Gutierrez MD, FACP [facility] C: [phone] O: [phone] F: [phone] Subjective Date of service: 06/29/19 Principal diagnosis: Optic neuritis Interval history: No fever. No new complaints. Objective - Exam Narrative Exam: Physical Exam: Constitutional: Alert, cooperative. No acute distress. Hard of hearing Head, Ears, Nose: Normocephalic, atraumatic. External ears, nose normal Eyes: Conjunctivae/corneas clear. No icterus. No ptosis. Left eye blindness Neck: Supple, no meningeal signs Cardiovascular: S1, S2 normal. Respiratory: Good air entry, clear to auscultation bilaterally GI: Soft, non-tender; bowel sounds normal. No peritoneal signs Musculoskeletal: No pedal edema, no cyanosis. Skin: No rash or abscess Hem/Lymphatic: No palpable cervical or supraclavicular nodes. No lymphangitis Psych: Mood ok. Affect normal Neurological: Awake, alert, oriented. Left sided blindness - Constitutional Vitals: Vital Signs Temp Pulse Resp BP Pulse Ox 97.6 F 47 L 18 126/67 99 06/29/19 08:26 06/29/19 08:26 06/29/19 08:26 06/29/19 08:26 06/29/19 08:26 Temperature -Last 24 Hours Temperature 97.6 F Temperature 97.8 F Temperature 98.0 F Temperature 98.1 F Temperature 97.0 F Temperature 97.6 F - Labs CBC & Chem 7: 06/28/19 07:16 06/28/19 07:16 Labs: Abnormal lab results 06/23/19 06/28/19 06/28/19 Range/Units 11:49 12:06 16:49 POC Glucose 114 H 129 H (70-105) EBV Capsid Ag IgG Titer >750.00 H (<18.00) U/mL EBV Nuclear Ag IgG Indx 313.00 H (<18.00) U/mL 06/28/19 Range/Units 20:43 POC Glucose 179 H (70-105) EBV Capsid Ag IgG Titer (<18.00) U/mL EBV Nuclear Ag IgG Indx (<18.00) U/mL
[2019-06-29 12:01] LABS: HIV-1 Antibody Differentiation SEE SCANNED RESULT; HIV-2 Antibody Differentiation SEE SCANNED RESULT
--- NOTE | 2019-06-29 12:56 | Progress Note ---
Assessment and Plan Assessment and plan: Acute optic neuritis. CSF pleocytosis. CSF revealed elevated WBC with increased lymphocytes. Continue steroids and acyclovir 10 mg/kilogram IV every 8 hours per ID recommendation. Follow-up HSV PCR, CMV PCR, EBV PCR on CSF and HIV testing. Also, follow-up UZAIR, C3-C4. Recent complicated CVA. Continue PT/OT Recent PE. Patient with previous pulmonary embolism was noncompliant with Eliquis. Currently on Eliquis. Hypertension. Continue antihypertensive medications. 3/4HIV negative. UZAIR, C3, C4 pending. 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 MRI report revealed enhancement of bilateral optic nerves L>R. Patient is improving on steroids. Therefore, there is concern for underlying autoimmune/inflammatory PAINTER CHASSIS disease such as MS versus NMO/MOG, no evid of sarcoid or VST. Continue IV high-dose steroids for now and consider IVIG tomorrow per neurology. 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 Consult hematology for hypercoagulable work-up. Follow-up old records from [facility] History Interval history: No new issues overnight. Patient reports hearing and visual acuity has improved Hospitalist Physical - Constitutional Vitals: Temp Pulse Resp BP Pulse Ox 97.6 F 47 L 18 126/67 99 06/29/19 08:26 06/29/19 08:26 06/29/19 08:26 06/29/19 08:26 06/29/19 08:26 General appearance: Present: no acute distress - EENT Eyes: Present: PERRL, EOM intact ENT: hearing intact, clear oral mucosa, dentition normal - Neck Neck: Present: supple, normal ROM - Respiratory Respiratory effort: normal Respiratory: bilateral: CTA - Cardiovascular Rhythm: regular Heart Sounds: Present: S1 & S2. Absent: gallop, rub - Extremities Extremities: no ischemia, No edema, Full ROM - Abdominal General gastrointestinal: soft, non-tender, non-distended, normal bowel sounds - Integumentary Integumentary: Present: clear, warm, dry - Neurologic Neurologic: CNII-XII intact, moves all extremities Results - Labs CBC & Chem 7: 06/28/19 07:16 06/28/19 07:16 Labs: Laboratory Last Values WBC 7.9 K/mm3 (4.5-11.0) 06/28/19 07:16 RBC 5.19 M/mm3 (3.65-5.03) H 06/28/19 07:16 Hgb 13.0 gm/dl (10.1-14.3) 06/28/19 07:16 Hct 40.1 % (30.3-42.9) 06/28/19 07:16 MCV 77 fl (79-97) L 06/28/19 07:16 MCH 25 pg (28-32) L 06/28/19 07:16 MCHC 33 % (30-34) 06/28/19 07:16 RDW 19.8 % (13.2-15.2) H 06/28/19 07:16 Plt Count 204 K/mm3 (140-440) 06/28/19 07:16 Lymph % (Auto) 47.5 % (13.4-35.0) H 06/21/19 20:06 [place] % (Auto) 10.1 % (0.0-7.3) H 06/21/19 20:06 Eos % (Auto) 2.2 % (0.0-4.3) 06/21/19 20:06 Baso % (Auto) 0.5 % (0.0-1.8) 06/21/19 20:06 Lymph # 2.1 K/mm3 (1.2-5.4) 06/21/19 20:06 [place] # 0.5 K/mm3 (0.0-0.8) 06/21/19 20:06 Eos # 0.1 K/mm3 (0.0-0.4) 06/21/19 20:06 Baso # 0.0 K/mm3 (0.0-0.1) 06/21/19 20:06 Seg Neutrophils % 39.7 % (40.0-70.0) L 06/21/19 20:06 Seg Neutrophils # 1.8 K/mm3 (1.8-7.7) 06/21/19 20:06 ESR 1 mm/Hr (0-20) 06/27/19 11:10 PT 12.9 Sec. (12.2-14.9) 06/21/19 20:06 INR 0.96 (0.87-1.13) 06/21/19 20:06 APTT 34.3 Sec. (24.2-36.6) 06/21/19 20:06 Sodium 139 mmol/L (137-145) 06/28/19 07:16 Potassium 4.5 mmol/L (3.6-5.0) 06/28/19 07:16 Chloride 103.2 mmol/L (98-107) 06/28/19 07:16 Carbon Dioxide 20 mmol/L (22-30) L 06/28/19 07:16 Anion Gap 20 mmol/L 06/28/19 07:16 BUN 16 mg/dL (7-17) 06/28/19 07:16 Creatinine 0.5 mg/dL (0.7-1.2) L 06/28/19 07:16 Estimated GFR > 60 ml/min 06/28/19 07:16 BUN/Creatinine Ratio 32 % 06/28/19 07:16 Glucose 138 mg/dL (65-100) H 06/28/19 07:16 POC Glucose 114 (70-105) H 06/29/19 11:54 Lactic Acid 2.50 mmol/L (0.7-2.0) H* 06/27/19 00:48 Calcium 8.6 mg/dL (8.4-10.2) 06/28/19 07:16 Total Bilirubin 0.40 mg/dL (0.1-1.2) 06/21/19 20:06 AST 15 units/L (5-40) 06/21/19 20:06 ALT 11 units/L (7-56) 06/21/19 20:06 Alkaline Phosphatase 77 units/L (35-129) 06/21/19 20:06 Lactate Dehydrogenase 123 units/L (91-180) 06/27/19 11:10 Total Creatine Kinase 14 units/L (30-135) L 06/27/19 11:10 CK-MB (CK-2) < 1.0 ng/mL (0.0-4.0) 06/22/19 10:02 CK-MB (CK-2) Rel Index 3.7 (0-4) 06/22/19 10:02 Troponin T < 0.010 ng/mL (0.00-0.029) 06/26/19 18:37 C-Reactive Protein 0.00 mg/dL (0.00-1.30) 06/27/19 11:10 Total Protein 7.2 g/dL (6.3-8.2) 06/21/19 20:06 Albumin 4.2 g/dL (3.9-5) 06/21/19 20:06 Albumin/Globulin Ratio 1.4 % 06/21/19 20:06 Triglycerides 24 mg/dL (2-149) 06/23/19 06:06 Cholesterol 94 mg/dL (50-199) 06/23/19 06:06 LDL Cholesterol Direct 42 mg/dL (50-130) L 06/23/19 06:06 HDL Cholesterol 53 mg/dL (40-59) 06/23/19 06:06 Cholesterol/HDL Ratio 1.77 % 06/23/19 06:06 HCG, Quant < 2 mIU/mL (0-4) 06/21/19 20:19 CSF Appearance Clear 06/22/19 08:55 CSF Color Colorless 06/22/19 08:55 CSF WBC 35 /mm3 (1-10) 06/22/19 08:55 CSF RBC 4 /mm3 (0-0) 06/22/19 08:55 CSF Seg Neutrophils 6.8 % (0-6) 06/22/19 08:55 CSF Lymphocytes % 73.9 % (40-80) 06/22/19 08:55 CSF Reactive Lymphs 0 % 06/22/19 08:55 CSF Monocytes % 15.9 % (15-45) 06/22/19 08:55 CSF Eosinophils % 3.4 % 06/22/19 08:55 CSF Basophils 0 % 06/22/19 08:55 CSF Pathologist Review C 06/22/19 08:55 CSF Glucose 83 mg/dL 06/22/19 08:55 CSF Total Protein 28 mg/dL 06/22/19 08:55 CSF VDRL Nonreactive (Nonreactive) 06/22/19 08:55 UZAIR Screen Negative (Negative) 06/23/19 13:18 Complement C3 132 mg/dL (83-193) 06/23/19 13:18 Complement C4 29 mg/dL (15-57) 06/23/19 13:18 Syphilis IgG Antibody Non-reactive (NonReactive) 06/23/19 13:18 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 See scanned result 06/23/19 11:49 EBV Capsid Ag IgG, IgM <36.00 U/mL (<36.00) 06/23/19 11:49 EBV Capsid Ag IgG Titer >750.00 U/mL (<18.00) H 06/23/19 11:49 EBV Nuclear Ag IgG Indx 313.00 U/mL (<18.00) H 06/23/19 11:49 EBV Interpretation Past 06/23/19 11:49 HIV-1 Antibody See scanned result 06/23/19 11:49 HIV-1 RNA PCR copies/ml <20 Copies/mL 06/23/19 11:49 HIV-1 RNA (PCR) log <1.30 Log cps/mL 06/23/19 11:49 HIV-2 Ab (Immunoblot) See scanned result 06/23/19 11:49 Active Medications - Current Medications Current Medications: Generic Name Dose Route Start Last Admin Trade Name Freq PRN Reason Stop Dose Admin Acetaminophen 650 mg 06/22/19 03:42 06/28/19 21:18 Tylenol PO 650 mg Q4H PRN Administration Pain, Mild (1-3) Apixaban 5 mg 06/24/19 16:00 06/29/19 10:09 Eliquis PO 5 mg BID VY Administration Protocol Atorvastatin Calcium 40 mg 06/22/19 22:00 06/28/19 21:18 Lipitor PO 40 mg QHS VY Administration Bisacodyl 10 mg 06/22/19 03:42 Dulcolax [place] QDAY PRN Constipation Ferrous Sulfate 325 mg 06/22/19 10:00 06/29/19 10:07 Feosol PO 325 mg QDAY VY Administration Levetiracetam 750 mg 06/24/19 12:00 06/29/19 10:09 Keppra PO 750 mg BID VY Administration Magnesium Hydroxide 30 ml 06/22/19 03:42 06/28/19 18:35 Milk Of Magnesia PO 30 ml Q4H PRN Administration Constipation Ondansetron HCl 4 mg 06/22/19 03:42 Zofran IV Q8H PRN Nausea And Vomiting Pantoprazole Sodium 40 mg 06/27/19 10:00 06/29/19 10:09 Protonix PO 40 mg BID VY Administration Sodium Chloride 10 ml 06/22/19 03:42 06/27/19 21:45 Sodium Chloride Flush Syringe 10 Ml IV 10 ml PRN PRN Administration LINE FLUSH Nutrition/Malnutrition Assess - Dietary Evaluation Nutrition/Malnutrition Findings: Nutrition Notes Start: 06/23/19 15:22 Freq: Status: Active Protocol: Document 06/23/19 15:22 LM (Rec: 06/23/19 15:24 LM [email or web address]) Nutrition Notes Need for 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 Pt states eating well with no wt loss. Nutrition Intervention Revisit per MD consult or patient Sign Off request:
--- NOTE | 2019-06-29 13:05 | Progress Note ---
Assessment and Plan Concern for optic neuritis improving on 5 days high-dose steroids this may be secondary to a recurrent/replapse of autoimmune/ inflammatory disease process of the PHOTOCOPYING EQUIPMENT REPAIRER now sparing the peripheral nerves of the LEGS and Arms but may have a co ntribution to the CN deficits I see on exam vs hx of cerebral edema/posterior, herniation/uncal (though the optic neuritis is a new dis process not related to hx of cerebral edema / herniation) based on [facility] records outside hospital suggest that patient may have had a ADEM inflamm PHOTOCOPYING EQUIPMENT REPAIRER disease process s/p PLEX versus an paraneo/autoimmune disease process causing a variant of GBS affecting brain and peripheral nerves v viral encephalitis postinfectious immune mediated disease process of the PHOTOCOPYING EQUIPMENT REPAIRER will likely benefit from IVIG for 5 days for recurrent MS variant / vs GBS varia nt Inpatient NCS/EMG not avail, OSH records still coming in, I want to see if GBS was confirmed Patient is status post plasma exchange at outside hospital in January for concern of antibody mediated PHOTOCOPYING EQUIPMENT REPAIRER disease process She is status post cerebral edema with near downward herniation uncal herniation bilateral which would explain the cranial nerve deficits I see now including left ptosis and right facial droop likely because of injury would be cerebral edema and herniation There was prior insults to the cerebellar hemispheres likely due to an inflammatory process however the MRI b at the outside hospital did not mention stroke, but records are still coming in ... 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 l ikely due to sickle cell disease rather than hypercoagulable state patient arrived with prodrome of viral illness and likely had dehydration causing vascular congestion Eliquis is on board now keep hydrated/euvolemic Echocardiogram done here during her admission reassuring HEME consult : SSA, PE w poss stroke, on eliquis, would pt benefit from adding ASA does pt have an underlying hypercoag dis process will f/u labs will addend note as new OSH records arrive 2 hours spent gathering and reviewing OSH Subjective Date of service: 06/29/19 Principal diagnosis: Optic neuritis Interval history: L vision improving hsv neg vmv neg csf vdrl crypto neg ebv prior infection vzv enterovirus pending hiv neg jonelle neg complement normal outside records from [facility] pending no new neuro issues Chart review from [facility] outside hospital records have finally arrived Active issues 03/10/2019 include encephalopathy myopathy cerebral edema weakness in both legs uncal herniation tonsillar hernia into foramen magnum acute respiratory failure pulmonary embolism demyelinating disease of the central nervous system consider postinfectious ADEM AMS respiratory failure dysphagia myopathy limb pain rhabdomyolysis lower extremity weakness questionable GBS sickle cell disease reticulocytosis sepsis acute UTI hyponatremia Patient was initially transferred to [facility] for lower extremity weakness to rule out GBS Initially admitted with sepsis acute rhabdomyolysis UTI reticulocytosis hyponatremia and sickle cell disease with abdominal pain associated with lower extremity numbness and weakness nausea vomiting She was admitted from 02/02/2019 to 02/04/2019 to [facility] Past medical history sickle cell disease Tobacco user Patient became unresponsive within 24 hours of admission a phasic respiratory distress placed on BiPAP Patient was intubated EEG showed encephalitis Patient started on antiviral neurology started IV steroids and plasmapheresis CT scan of the brain and MRI showed respectively interval worsening of diffuse cerebral edema brain herniation downward transtentorial herniation of the cerebellum early symmetric uncal herniation no midline shift Pseudo-subarachnoid hemorrhage appearance of cerebral edema rather than true intracranial hemorrhage MRI brain showing interval development of extensive white matter changes areas of restricted diffusion compatible with infarct at both cerebellar hemispheres development of mass-effect particularly in the posterior fossa may represent hypoxia infection PML perhaps pres Patient continues to improve with all modalities of treatment reduction of cerebral edema resolution of herniation started to move the right upper and lower extremities was placed on antiseizure medicine due to biting of her tongue secondary to seizures There was a lumbar puncture performed no results available 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 was another asse ssment from [facility] Positive coxsackie/EBV Patient grew gram-negative rods on 03/07/19 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 unclear etiology Objective - Exam Narrative Exam: AAO x4 no aphasia positive dysarthria Hoarse voice Cranial nerves significant for right facial droop otherwise left ptosis pupils are reactive less apparent APD on the left pupil There is dilatation upon direct light reflex testing of both eyes initially I am concerned that there is APD left greater than right Decreased acuity of left vision Decreased pain and temperature right arm and leg diffuse Left side sensory intact light touch pain temperature Left upper extremity pronator drift Remainder of the power testing 5 out of 5 Deep tendon reflexes are symmetrical tone is symmetrical throughout and there are no upgoing toes on plantar reflex testing No extra movements Neck supple - Vital Sign Vital Signs - 12hr 03/04/20 03/04/20 04:11 08:26 Temperature 97.8 F 97.6 F Pulse Rate 47 L 47 L Respiratory 16 18 Rate Blood Pressure 152/77 126/67 O2 Sat by Pulse 96 99 Oximetry - Laboratory Findings CBC and BMP: 06/28/19 07:16 06/28/19 07:16 Abnormal Lab Findings: Abnormal Labs 06/21/19 06/21/19 06/22/19 20:06 20:06 10:02 RBC 5.26 H MCV 77 L MCH 25 L RDW 20.1 H Lymph % (Auto) 47.5 H Hyde % (Auto) 10.1 H Seg Neutrophils % 39.7 L Carbon Dioxide Creatinine 0.6 L Glucose POC Glucose Lactic Acid Total Creatine Kinase 27 L LDL Cholesterol Direct EBV Capsid Ag IgG Titer EBV Nuclear Ag IgG Indx 06/23/19 06/23/19 06/23/19 06:06 06:06 11:49 RBC 5.24 H MCV 78 L MCH 25 L RDW 19.9 H Lymph % (Auto) Hyde % (Auto) Seg Neutrophils % Carbon Dioxide 19 L Creatinine 0.5 L Glucose 155 H POC Glucose Lactic Acid Total Creatine Kinase LDL Cholesterol Direct 42 L EBV Capsid Ag IgG Titer >750.00 H EBV Nuclear Ag IgG Indx 313.00 H 06/23/19 06/23/19 06/24/19 18:40 20:11 19:57 RBC MCV MCH RDW Lymph % (Auto) Hyde % (Auto) Seg Neutrophils % Carbon Dioxide Creatinine Glucose POC Glucose 126 H 132 H 125 H Lactic Acid Total Creatine Kinase LDL Cholesterol Direct EBV Capsid Ag IgG Titer EBV Nuclear Ag IgG Indx 06/24/19 06/25/19 06/25/19 21:27 12:04 16:01 RBC MCV MCH RDW Lymph % (Auto) Hyde % (Auto) Seg Neutrophils % Carbon Dioxide Creatinine Glucose POC Glucose 118 H 128 H 124 H Lactic Acid Total Creatine Kinase LDL Cholesterol Direct EBV Capsid Ag IgG Titer EBV Nuclear Ag IgG Indx 06/25/19 06/26/19 06/26/19 20:41 08:34 11:29 RBC MCV MCH RDW Lymph % (Auto) Hyde % (Auto) Seg Neutrophils % Carbon Dioxide Creatinine Glucose POC Glucose 222 H 132 H 165 H Lactic Acid Total Creatine Kinase LDL Cholesterol Direct EBV Capsid Ag IgG Titer EBV Nuclear Ag IgG Indx 06/26/19 06/26/1906/25/20 16:46 16:46 18:37 RBC MCV MCH RDW Lymph % (Auto) Hyde % (Auto) Seg Neutrophils % Carbon Dioxide Creatinine 0.6 L Glucose 119 H POC Glucose Lactic Acid 2.10 H* 2.50 H* Total Creatine Kinase LDL Cholesterol Direct EBV Capsid Ag IgG Titer EBV Nuclear Ag IgG Indx 06/26/19 06/26/19 06/27/19 20:40 22:30 00:48 RBC MCV MCH RDW Lymph % (Auto) Hyde % (Auto) Seg Neutrophils % Carbon Dioxide Creatinine Glucose POC Glucose 108 H Lactic Acid 2.40 H* 2.50 H* Total Creatine Kinase LDL Cholesterol Direct EBV Capsid Ag IgG Titer EBV Nuclear Ag IgG Indx 06/27/19 06/27/19 06/27/19 07:58 11:10 15:55 RBC MCV MCH RDW Lymph % (Auto) Hyde % (Auto) Seg Neutrophils % Carbon Dioxide Creatinine Glucose POC Glucose 139 H 165 H Lactic Acid Total Creatine Kinase 14 L LDL Cholesterol Direct EBV Capsid Ag IgG Titer EBV Nuclear Ag IgG Indx 06/27/19 06/28/19 06/28/19 22:29 07:16 07:16 RBC 5.19 H MCV 77 L MCH 25 L RDW 19.8 H Lymph % (Auto) Hyde % (Auto) Seg Neutrophils % Carbon Dioxide 20 L Creatinine 0.5 L Glucose 138 H POC Glucose 116 H Lactic Acid Total Creatine Kinase LDL Cholesterol Direct EBV Capsid Ag IgG Titer EBV Nuclear Ag IgG Indx 06/28/19 06/28/19 06/28/19 08:12 12:06 16:49 RBC MCV MCH RDW Lymph % (Auto) Hyde % (Auto) Seg Neutrophils % Carbon Dioxide Creatinine Glucose POC Glucose 155 H 114 H 129 H Lactic Acid Total Creatine Kinase LDL Cholesterol Direct EBV Capsid Ag IgG Titer EBV Nuclear Ag IgG Indx 06/28/19 06/29/19 20:43 11:54 RBC MCV MCH RDW Lymph % (Auto) Hyde % (Auto) Seg Neutrophils % Carbon Dioxide Creatinine Glucose POC Glucose 179 H 114 H Lactic Acid Total Creatine Kinase LDL Cholesterol Direct EBV Capsid Ag IgG Titer EBV Nuclear Ag IgG Indx
[2019-06-29] MEDS ORDERED: IMMUNE GLOBULIN G/GLY/IGA AVG 46 10 GM/100 ML VIAL IV SCH ×3 (14:00)
[2019-06-29] MEDS ORDERED: IMMUNE GLOBUL IV SCH (15:00)
[2019-06-29] MEDS ORDERED: GLY IV SCH (15:00)
[2019-06-29] MEDS ORDERED: [UNRECOGNIZED DRUG - OTHER] IV SCH (15:00)
[2019-06-29] MEDS ORDERED: IGA AVG IV SCH (15:00)
--- NOTE | 2019-06-29 17:30 | Cat Scan Report ---
CT head/brain wo con INDICATION / CLINICAL INFORMATION: 28 years Female; numbness to jaw,vsion from lt eye pooer. TECHNIQUE: Routine CT head without contrast. All CT scans at this location are performed using CT dos e reduction for ALARA by means of automated exposure control. COMPARISON: The study is compared to the previous CT of 06/24/2019. FINDINGS: BRAIN / INTRACRANIAL CONTENTS: The brain appears to demonstrate appropriate attenuation without signi ficant interval change from the earlier CT. The ventricular system remains unchanged in size and conf iguration. There is no clear CT evidence of acute intracranial hemorrhage or significant mass effect. ORBITS: No significant abnormality of visualized orbits. SINUSES / MASTOIDS: The visualized paranasal sinuses are clear. There is mild opacification involving the inferior right mastoid air cells. CRANIOCERVICAL JUNCTION: No significant abnormality. ADDITIONAL FINDINGS: None. IMPRESSION: 1. There is no CT evidence of acute intracranial process. The study was specified as code stroke and called emergently to the patient's nurse at 4:24 PM [facility] standard time. Signer Name: Luek Greene MD Signed: 06/29/2019 5:25 PM Workstation Name: [id number]
--- NOTE | 2019-06-29 17:40 | Cat Scan Report ---
CTA head with and without IV contrast. CLINICAL HISTORY: Right sided neuro deficits. Technique: Multiple contiguous postcontrast CT images of the head were obtained at 0.63 mm intervals. 3 plane MIP reconstructions were obtained. Precontrast localizing images were also performed. CT scan s at this location are performed using the CT dose reduction for ALARA by means of automated exposure control. 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 However, there is no second developing focal stenosis invo lving intracranial vessels from the earlier stat CTA head of 06/21/2019 at. 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 There is no definitive CT evidence of intracranial aneurysm. IMPRESSION: There is no clear CT evidence of interval developing a stenosis involving intracranial vessels from . Signer Name: Luke Greene MD Signed: 06/29/2019 5:35 PM Workstation Name: [id number]
--- NOTE | 2019-06-29 17:45 | Cat Scan Report ---
CTA neck with and without contrast CLINICAL HISTORY: Left sided neuro deficits. Technique: Multiple contiguous postcontrast axial CT images of the neck were obtained at 0.63 mm inte rvals. 3 plane MIP reconstructions were produced. Precontrast localizing images were also performed. All CT scans at this location are performed using the CT dose reduction for ALARA by means of automat ed exposure control. FINDINGS: The articular vessels and left-sided cervical carotid or vertebral arteries are obscured by the dense contrast within the adjacent venous structures. However, there is no clear evidence of sec ond developing a stenosis involving the carotid arteries from the earlier stat CTA neck of 06/21/2019. The carotid bifurcations are widely patent. 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 There is no significant focal narrowing involving the right vertebral artery or the visualized m id to distal left vertebral artery. The arch of vessels are grossly unremarkable. IMPRESSION: There is no CTA evidence of significant developing stenosis involving the carotid or visualized verte bral arteries by NASCET criteria from the previous exam of 06/21/2019. Signer Name: Luke Greene MD Signed: 06/29/2019 5:40 PM Workstation Name: [id number]
[2019-06-29] MEDS ORDERED: SODIUM CHLORIDE 0.9% 1000 ML 1,000 ML IV SCH (21:45)
--- NOTE | 2019-06-30 07:00 | Hem/Onc Consultation ---
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 Was having worsening vision in the left eye and decreased hearing, she had the symptoms with the previous CVA in January 2019. 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 She was started on Eliquis, her last dose was May 31. She was doing rehab in [place], she was unable to continue living in [place], she did not follow-up with her doctor to get refill for Eliquis. Complained of chest pain in the high upper chest which she described as a dull pain, intermittent lasting for 7 minutes, intensity 4/10, no radiation, cannot identify exacerbating relieving factors. Patient was admitted for possible CVA seen by ID CSF with elevated white blood cells at 35 with increased lymphocytes, normal glucose and normal protein; optic neuritis versus optic neuropathy with CSF pleocytosis. HIV negative. UZAIR, C3, C4. 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 " Pt is " status post cerebral edema with near downward herniation uncal herniation bilateral which would explain the cranial nerve deficits ...including left ptosis and right facial droop likely because of injury would be cerebral edema and herniation" 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) Social history: other (Previous history of smoking) Family history: no significant family history Medications and Allergies Allergies Allergy/AdvReac Type Severity Reaction Status Date / Time No Known Allergies Allergy Unverified 08/21/18 16:02 Home Medications Medication Instructions Recorded Confirmed Last Taken Type AtorvaSTATin [Lipitor] 40 mg PO QHS 06/21/19 06/21/19 Unknown History Ferrous Sulfate [Iron 325 MG] 325 mg PO QDAY 06/21/19 06/21/19 Unknown History amLODIPine [Norvasc] 10 mg PO DAILY 06/21/19 06/21/19 Unknown History carvediloL [Coreg] 12.5 mg PO BID 06/21/19 06/21/19 Unknown History Apixaban [Eliquis] 5 tab PO BID 06/24/19 06/24/19 Unknown History Active Meds: Active Medications Acetaminophen (Tylenol) 650 mg PO Q4H PRN PRN Reason: Pain, Mild (1-3) Last Admin: 06/28/19 21:18 Dose: 650 mg Documented by: Apixaban (Eliquis) 5 mg PO BID [facility]; Protocol Last Admin: 06/29/19 21:22 Dose: 5 mg Documented by: Atorvastatin Calcium (Lipitor) 40 mg PO QHS [facility] Last Admin: 06/29/19 21:22 Dose: 40 mg Documented by: Bisacodyl (Dulcolax) 10 mg OR QDAY PRN PRN Reason: Constipation Ferrous Sulfate (Feosol) 325 mg PO QDAY [facility] Last Admin: 06/29/19 10:07 Dose: 325 mg Documented by: IMMUNE GLOBUL G/GLY/IGA AVG 46 20 gm/ IMMUNE GLOBUL G/GLY/IGA AVG 46 10 gm/Miscellaneous 300 mls @ 56 mls/hr IV Q24HR [facility]; Protocol Stop: 07/03/19 15:22 Last Admin: 06/29/19 15:00 Dose: Not Given Documented by: Levetiracetam (Keppra) 750 mg PO BID [facility] Last Admin: 06/29/19 21:24 Dose: 750 mg Documented by: Magnesium Hydroxide (Milk Of Magnesia) 30 ml PO Q4H PRN PRN Reason: Constipation Last Admin: 06/28/19 18:35 Dose: 30 ml Documented by: Ondansetron HCl (Zofran) 4 mg IV Q8H PRN PRN Reason: Nausea And Vomiting Pantoprazole Sodium (Protonix) 40 mg PO BID [facility] Last Admin: 06/29/19 21:22 Dose: 40 mg Documented by: Sodium Chloride (Sodium Chloride Flush Syringe 10 Ml) 10 ml IV PRN PRN PRN Reason: LINE FLUSH Last Admin: 06/29/19 21:24 Dose: 10 ml Documented by: Exam - Exam Narrative Exam: Gen. appearance: Patient lying in bed, no apparent distress HEENT: Normocephalic, atraumatic, pupils equally round and reactive to light, extraocular movement intact, and no sclericterus,. No JVD or thyromegaly or nodule,neck supple, no carotid bruit ,mucous membranes moist, no exudate or erythema Heart: S1, S2, regular rate and rhythm Lungs: Clear bilaterally, breathing comfortable Abdomen: Positive bowel sounds, nontender, nondistended, no organomegaly Extremity: no edema, cyanosis, clubbing Skin: No rash, nodules, warm, dry Neuro: speech is fluent, residual left-sided weakness, sensory intact - Constitutional Vitals: Last Vital Signs Temp 97.3 F L 06/30/19 04:07 Pulse 51 L 06/30/19 04:07 Resp 16 06/30/19 04:07 BP 106/57 06/30/19 04:07 Pulse Ox 97 06/30/19 04:07 Results - Labs lab Results: Laboratory Results - last 24 hr 06/23/19 06/23/19 06/29/19 11:49 11:49 08:39 POC Glucose 95 Lactic Acid Total Creatine Kinase CMV DNA PCR log fluoroscope operator/mL See scanned result HIV-1 Antibody See scanned result HIV-2 Ab (Immunoblot) See scanned result 06/29/19 06/29/19 06/29/19 11:54 14:01 14:01 POC Glucose 114 H Lactic Acid 3.20 H* Total Creatine Kinase 16 L CMV DNA PCR log fluoroscope operator/mL HIV-1 Antibody HIV-2 Ab (Immunoblot) 06/29/19 06/29/19 06/29/19 15:42 15:42 16:39 POC Glucose 101 Lactic Acid 2.40 H* 2.50 H* Total Creatine Kinase CMV DNA PCR log fluoroscope operator/mL HIV-1 Antibody HIV-2 Ab (Immunoblot) 06/29/19 06/29/19 06/29/19 18:03 19:18 20:46 POC Glucose 90 91 Lactic Acid 3.90 H* Total Creatine Kinase CMV DNA PCR log fluoroscope operator/mL HIV-1 Antibody HIV-2 Ab (Immunoblot) 06/29/19 06/29/19 21:08 22:58 POC Glucose Lactic Acid 5.40 H* 3.20 H* Total Creatine Kinase CMV DNA PCR log fluoroscope operator/mL HIV-1 Antibody HIV-2 Ab (Immunoblot) Assessment and Plan # Vision issues - being followed by neurology - ? immune eitology - h/o pl exchange h/o steroid trial IVIG # CVA? - neurology following # Sickle disorder - will Ix # h/o PE - pt was on eliquis then did nto take same. # h/o seizure # h/o HTN ,obesity, hyperlipidemia 3/ CTA chest leg doppler - will guide if we need to continue full dose anticoagulation from hem perspective or if her poor mobility will guide us reg anticoagulation. also based on the labs - and pt history, she has sickle trait - with normal hb - low MCV - def Ix - pt on oral iron - sickle trait is uncommon to have neurology issues will do hb electrophoresis to r/o Hb SC disease - Patient Problems (1) CVA (cerebral vascular accident) Current Visit: Yes Status: Acute Qualifiers: CVA mechanism: unspecified Qualified Code(s): I63.9 - Cerebral infarction, unspecified
[2019-06-30 09:08] LABS: Iron 92 ug/dL (37-170); Total Iron Binding Capacity 215 mcg/dL (250-450)
--- NOTE | 2019-06-30 09:36 | Progress Note ---
Assessment and Plan optic neuritis L > R , improving both clinically and radiographically , s/p 5 days of iv steroids, recent hx of likey ADEM w cerebral edema, uncal herniation, L lat. med lesion, no mention of strokes on [facility] records, improving MRI brain, neg for new issues pt as other areas of gliosis on brain mri, likely inflamm, autoimm process causing optic neuritis, MS vs NMO, GBS variant, will cont IVIG persistent bradycardia preventing IVIG tx, sugg cardiology consult hypotension : may worsen w IVIG, keep normotensive w fluids as best poss, no rapid position changes, avoid hypotensive meds check orthostatics lactic acidosis, persistent, will need w/u no hx of mitoch. dis MERRF/MELAS, or CA no hx of HIV or DM no no beta adrenergic pt does get hypotensive, hypoperfusion? NEPHRO consult sickle cell hx: HEME on board, appreciate their help, LE dopplers PE: stable eliquis persist L sided weakness , L face ptosis, : abn sensory exam can be d/t hx of uncal herniation, vs L med. post. medulla stroke vs cervical lesion check c spine mri MRI brain, neg for new issues get records from [facility] seizures during prolonged coma : massive tongue injury in the past, : stable, mala -----discussion --- op neuritis: this may be secondary to a recurrent/replapse of autoimmune/ inflammatory disease process of the YARN WRAPPER now sparing the peripheral nerves of the LEGS and Arms but may have a contribution to the CN deficits I see on exam vs hx of cerebral edema/posterior, herniation/uncal (though the optic neuritis is a new dis process not related to hx of cerebral edema / herniation) based on [place] records outside hospital suggest that patient may have had a ADEM inflamm YARN WRAPPER disease process s/p PLEX versus an paraneo/autoimmune disease process causing a variant of GBS affecting brain andperipheral nerves v viral encephalitis postinfectious immune mediated disease process of the YARN WRAPPER Patient is status post plasma exchange at outside hospital in January for 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 Subjective Date of service: 06/30/19 Principal diagnosis: Optic neuritis Interval history: yesterday around ~4-5 pm, pt c/o L face arm and leg weakness, glu 100, on eliquis, bp sys 100, no sz stat CT , CTA h/n was ordered : neg on all reports today MRI b shows no acute processes still old lesions in the inf margin pete gisell., L lat. precentral gyrus, and L post med. medulla unchanged optic n. enhancement almost resolved persistent lactic acidosis, low CK , no recent sz DVT w/u dopplers ordered heme on board, appreciate their input , hx of ss trait, and clots no beta adrenergic drugs on board, neg HIV, no hx of salas dis, MERRF/MELAS more records from [facility], no MRI b report on 03/08-03/09, only time mentioned b/l cerebellar strokes on an ID note, but this prob was not listed as active problem thereafter by hospitalist d/c summary from [facility] do not mention stroke as dx pt states her vision is improving states around L mouth and L arm leg feel heavy no MCKEON no change of speech no LOC no sz bp low lab reviewed, no new updates bradycardia Objective - Exam Narrative Exam: L ptosis R facial droop asymm smile no APD appreciated, pupils reactive L arm droop no extra movements tongue midline, uvula midline EOMI L arm 4/5 rest of limbs 5/5 i dont see a L facial droop R side arm leg decrease temp, but pin prick is equal arms no extra movements neck supple - Vital Sign Vital Signs - 12hr 06/29/19 06/29/19 06/30/19 22:56 23:21 00:01 Temperature 97.4 F L 97.4 F L Pulse Rate 56 L 68 68 Respiratory 16 16 Rate Blood Pressure 124/59 Blood Pressure 124/59 [Left] O2 Sat by Pulse 97 97 Oximetry 06/30/19 06/30/19 03:33 04:07 Temperature 97.3 F L Pulse Rate 46 L 51 L Respiratory 16 Rate Blood Pressure 106/57 Blood Pressure [Left] O2 Sat by Pulse 97 Oximetry - Laboratory Findings CBC and BMP: 06/28/19 07:16 06/28/19 07:16 Abnormal Lab Findings: Abnormal Labs 06/21/19 06/21/19 06/22/19 20:06 20:06 10:02 RBC 5.26 H MCV 77 L MCH 25 L RDW 20.1 H Lymph % (Auto) 47.5 H [place] % (Auto) 10.1 H Seg Neutrophils % 39.7 L Carbon Dioxide Creatinine 0.6 L Glucose POC Glucose Lactic Acid TIBC Total Creatine Kinase 27 L LDL Cholesterol Direct Folate EBV Capsid Ag IgG Titer EBV Nuclear Ag IgG Indx 06/23/19 06/23/19 06/23/19 06:06 06:06 11:49 RBC 5.24 H MCV 78 L MCH 25 L RDW 19.9 H Lymph % (Auto) [place] % (Auto) Seg Neutrophils % Carbon Dioxide 19 L Creatinine 0.5 L Glucose 155 H POC Glucose Lactic Acid TIBC Total Creatine Kinase LDL Cholesterol Direct 42 L Folate EBV Capsid Ag IgG Titer >750.00 H EBV Nuclear Ag IgG Indx 313.00 H 06/23/19 06/23/19 06/24/19 18:40 20:11 19:57 RBC MCV MCH RDW Lymph % (Auto) [place] % (Auto) Seg Neutrophils % Carbon Dioxide Creatinine Glucose POC Glucose 126 H 132 H 125 H Lactic Acid TIBC Total Creatine Kinase LDL Cholesterol Direct Folate EBV Capsid Ag IgG Titer EBV Nuclear Ag IgG Indx 06/24/19 06/25/19 06/25/19 21:27 12:04 16:01 RBC MCV MCH RDW Lymph % (Auto) [place] % (Auto) Seg Neutrophils % Carbon Dioxide Creatinine Glucose POC Glucose 118 H 128 H 124 H Lactic Acid TIBC Total Creatine Kinase LDL Cholesterol Direct Folate EBV Capsid Ag IgG Titer EBV Nuclear Ag IgG Indx 06/25/19 06/26/19 06/26/19 20:41 08:34 11:29 RBC MCV MCH RDW Lymph % (Auto) [place] % (Auto) Seg Neutrophils % Carbon Dioxide Creatinine Glucose POC Glucose 222 H 132 H 165 H Lactic Acid TIBC Total Creatine Kinase LDL Cholesterol Direct Folate EBV Capsid Ag IgG Titer EBV Nuclear Ag IgG Indx 06/26/19 06/26/19 06/26/19 16:46 16:46 18:37 RBC MCV MCH RDW Lymph % (Auto) [place] % (Auto) Seg Neutrophils % Carbon Dioxide Creatinine 0.6 L Glucose 119 H POC Glucose Lactic Acid 2.10 H* 2.50 H* TIBC Total Creatine Kinase LDL Cholesterol Direct Folate EBV Capsid Ag IgG Titer EBV Nuclear Ag IgG Indx 06/26/19 06/26/19 06/27/19 20:40 22:30 00:48 RBC MCV MCH RDW Lymph % (Auto) [place] % (Auto) Seg Neutrophils % Carbon Dioxide Creatinine Glucose POC Glucose 108 H Lactic Acid 2.40 H* 2.50 H* TIBC Total Creatine Kinase LDL Cholesterol Direct Folate EBV Capsid Ag IgG Titer EBV Nuclear Ag IgG Indx 06/27/19 06/27/19 06/27/19 07:58 11:10 15:55 RBC MCV MCH RDW Lymph % (Auto) [place] % (Auto) Seg Neutrophils % Carbon Dioxide Creatinine Glucose POC Glucose 139 H 165 H Lactic Acid TIBC Total Creatine Kinase 14 L LDL Cholesterol Direct Folate EBV Capsid Ag IgG Titer EBV Nuclear Ag IgG Indx 06/27/19 06/28/19 06/28/19 22:29 07:16 07:16 RBC 5.19 H MCV 77 L MCH 25 L RDW 19.8 H Lymph % (Auto) [place] % (Auto) Seg Neutrophils % Carbon Dioxide 20 L Creatinine 0.5 L Glucose 138 H POC Glucose 116 H Lactic Acid TIBC Total Creatine Kinase LDL Cholesterol Direct Folate EBV Capsid Ag IgG Titer EBV Nuclear Ag IgG Indx 06/28/19 06/28/19 06/28/19 08:12 12:06 16:49 RBC MCV MCH RDW Lymph % (Auto) [place] % (Auto) Seg Neutrophils % Carbon Dioxide Creatinine Glucose POC Glucose 155 H 114 H 129 H Lactic Acid TIBC Total Creatine Kinase LDL Cholesterol Direct Folate EBV Capsid Ag IgG Titer EBV Nuclear Ag IgG Indx 06/28/19 06/29/19 06/29/19 20:43 11:54 14:01 RBC MCV MCH RDW Lymph % (Auto) [place] % (Auto) Seg Neutrophils % Carbon Dioxide Creatinine Glucose POC Glucose 179 H 114 H Lactic Acid 3.20 H* TIBC Total Creatine Kinase LDL Cholesterol Direct Folate EBV Capsid Ag IgG Titer EBV Nuclear Ag IgG Indx 06/29/19 06/29/19 06/29/19 14:01 15:42 16:39 RBC MCV MCH RDW Lymph % (Auto) [place] % (Auto) Seg Neutrophils % Carbon Dioxide Creatinine Glucose POC Glucose Lactic Acid 2.40 H* 2.50 H* TIBC Total Creatine Kinase 16 L LDL Cholesterol Direct Folate EBV Capsid Ag IgG Titer EBV Nuclear Ag IgG Indx 06/29/19 06/29/19 06/29/19 19:18 21:08 22:58 RBC MCV MCH RDW Lymph % (Auto) [place] % (Auto) Seg Neutrophils % Carbon Dioxide Creatinine Glucose POC Glucose Lactic Acid 3.90 H* 5.40 H* 3.20 H* TIBC Total Creatine Kinase LDL Cholesterol Direct Folate EBV Capsid Ag IgG Titer EBV Nuclear Ag IgG Indx 06/30/19 06/30/19 06/30/19 08:14 08:14 08:14 RBC MCV MCH RDW Lymph % (Auto) [place] % (Auto) Seg Neutrophils % Carbon Dioxide Creatinine Glucose POC Glucose Lactic Acid 2.60 H* TIBC 215 L Total Creatine Kinase LDL Cholesterol Direct Folate 5.07 L EBV Capsid Ag IgG Titer EBV Nuclear Ag IgG Indx
--- NOTE | 2019-06-30 11:15 | Consultation ---
History of Present Illness - Reason for Consult Consult date: 06/30/19 other (lactic acidosis) - History of Present Illness This is a 28 year old female patient with pmh significant for CVA with residual left-sided weakness, seizure, hypertension, sickle disorder, PE (previously on Eliquis), hyperlipidemia, obesity. 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 She was in rehab in [place] but was unable to continue living in [place] and did not receive refill for her Eliquis. She presented to ED on 06/22 for worsening vision in left eye and decreased hearing. She also complained of chest pain in the ED. She was subsequently admitted for possible CVA. Upon admission her lactic acid level was found to be severely elevated although no symptoms of sepsis. ID has signed off but recommended continuing off abx and antivirals as pt had no signs of sepsis. Per notes, she has shown some improvement with IV steroids and IVIG. At time of consultation, lactic acid level was 2.6 which is trending down. She was examined in the ultrasound suite. Nephrology was consulted for further evaluation and treatment of lactic acidosis of unknown etiology. 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) Social history: other (Previous history of smoking) Family history: no significant family history Medications and Allergies Allergies Allergy/AdvReac Type Severity Reaction Status Date / Time No Known Allergies Allergy Unverified 08/21/18 16:02 Home Medications Medication Instructions Recorded Confirmed Last Taken Type AtorvaSTATin [Lipitor] 40 mg PO QHS 06/21/19 06/21/19 Unknown History Ferrous Sulfate [Iron 325 MG] 325 mg PO QDAY 06/21/19 06/21/19 Unknown History amLODIPine [Norvasc] 10 mg PO DAILY 06/21/19 06/21/19 Unknown History carvediloL [Coreg] 12.5 mg PO BID 06/21/19 06/21/19 Unknown History Apixaban [Eliquis] 5 tab PO BID 06/24/19 06/24/19 Unknown History Active Meds: Active Medications Acetaminophen (Tylenol) 650 mg PO Q4H PRN PRN Reason: Pain, Mild (1-3) Last Admin: 06/28/19 21:18 Dose: 650 mg Documented by: Apixaban (Eliquis) 5 mg PO BID [facility]; Protocol Last Admin: 06/29/19 21:22 Dose: 5 mg Documented by: Atorvastatin Calcium (Lipitor) 40 mg PO QHS [facility] Last Admin: 06/29/19 21:22 Dose: 40 mg Documented by: Bisacodyl (Dulcolax) 10 mg NC QDAY PRN PRN Reason: Constipation Ferrous Sulfate (Feosol) 325 mg PO QDAY [facility] Last Admin: 06/29/19 10:07 Dose: 325 mg Documented by: IMMUNE GLOBUL G/GLY/IGA AVG 46 20 gm/ IMMUNE GLOBUL G/GLY/IGA AVG 46 10 gm/Miscellaneous 300 mls @ 56 mls/hr IV Q24HR [facility]; Protocol Stop: 07/03/19 15:22 Last Admin: 06/29/19 15:00 Dose: Not Given Documented by: Levetiracetam (Keppra) 750 mg PO BID [facility] Last Admin: 06/29/19 21:24 Dose: 750 mg Documented by: Magnesium Hydroxide (Milk Of Magnesia) 30 ml PO Q4H PRN PRN Reason: Constipation Last Admin: 06/28/19 18:35 Dose: 30 ml Documented by: Ondansetron HCl (Zofran) 4 mg IV Q8H PRN PRN Reason: Nausea And Vomiting Pantoprazole Sodium (Protonix) 40 mg PO BID [facility] Last Admin: 06/29/19 21:22 Dose: 40 mg Documented by: Sodium Chloride (Sodium Chloride Flush Syringe 10 Ml) 10 ml IV PRN PRN PRN Reason: LINE FLUSH Last Admin: 06/29/19 21:24 Dose: 10 ml Documented by: Review of Systems Constitutional: other (L arm weakness), no weight loss, no weight gain, no fever, no chills, no anorexia Eyes: left: blurred vision Ears, nose, mouth and throat: decreased hearing, no nasal congestion, no epist axis Cardiovascular: no chest pain, no edema, no lightheadedness, no shortness of breath Respiratory: no cough Gastrointestinal: no abdominal pain, no nausea, no vomiting, no diarrhea, no constipation Musculoskeletal: other (L arm weakness) Integumentary: no rash, no sores, no wounds Exam - Vital Signs Vital signs: Vital Signs Temp Pulse Resp BP Pulse Ox 97.8 F 77 13 118/66 98 06/21/19 18:25 06/21/19 18:25 06/21/19 18:25 06/21/19 18:25 06/21/19 18:25 - General Appearance General appearance: well-developed, well-nourished, appears stated age, obese, chronically ill EENT: ATNC, PERRL, mucous membranes moist, hearing diminished Neck: Present: neck supple, trachea midline Respiratory: Clear to Ascultation Heart: regular, normal heart rate, S1S2, no murmurs Gastrointestinal: Present: normal, normoactive bowel sounds, obese Integumentary: no rash, warm and dry, other (tracheal scar noted) Neurologic: no focal deficit, alert and oriented x3, other (L arm weakness, all other extremities equal strength) Musculoskeletal: Present: other Psychiatric: mood/affect appropriate, cooperative Results - Lab Results 06/28/19 07:16 06/28/19 07:16 Most recent lab results Calcium 8.6 mg/dL (8.4-10.2) 06/28/19 07:16 Assessment and Plan 1. Lactic acidosis: Cause of lactic acidosis is unclear. Patient has shown no signs of sepsis or evidence of infection per ID. ID has signed off. No hx of HIV or DM. Persistent, but level is trending down, currently 2.6. Will monitor trend. ABG is pending. IV fluids ordered. 2. 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 Improving. 3. H/o sickle disorder: LE dopplers. Heme/Onc following. 4. PE: Stable on Eliquis. 5. Persistent L sided weakness: L face ptosis. Hx uncal herniation. C spine MRI pending. 6. Hypotension: Continue IV fluids. Monitor.
[2019-06-30] MEDS ORDERED: SODIUM CHLORIDE 0.9% 1000 ML 1,000 ML IV SCH (11:30)
[2019-06-30] MEDS: APIXABAN 5 MG TAB PO SCH (11:35)
[2019-06-30] MEDS: PANTOPRAZOLE 40 MG TAB PO SCH (11:35)
[2019-06-30] MEDS: FERROUS SULFATE 325 MG TAB PO SCH (11:35)
[2019-06-30] MEDS: levETIRAcetam 500 MG TAB PO SCH (11:36)
--- NOTE | 2019-06-30 11:37 | Vascular Lab Report ---
DUPLEX DOPPLER LOWER EXTREMITY VEINS, BILATERAL INDICATION / CLINICAL INFORMATION: Lower extremity pain and swelling. TECHNIQUE: Duplex doppler imaging was performed through the veins of both lower extremities using venous cass mando and other maneuvers. COMPARISON: None available. FINDINGS: Right Common Femoral vein: Negative. Right Femoral vein: Negative. Right Popliteal vein: Negative. Right Calf veins: Negative. Left Common Femoral vein: Negative. Left Femoral vein: Negative. Left Popliteal vein: Negative. Left Calf veins: Negative. Additional findings: None. IMPRESSION: 1. No sonographic evidence for DVT in either lower extremity. Signer Name: Lorenzo Monteiro MD Signed: 06/30/2019 11:33 AM Workstation Name: [id number]
--- NOTE | 2019-06-30 12:50 | Magnetic Resonance Report ---
Nonenhanced and contrast-enhanced MR scan of the brain: INDICATION / CLINICAL INFORMATION: Changes in the neurological status TECHNIQUE: Multiplanar, multisequence MR images of the brain were noncontrast MRI brain normal brain MR obtained before and after gadolinium based contrast injection. COMPARISON: MR scan of the brain from 06/22/2019 FINDINGS: BRAIN / INTRACRANIAL CONTENTS: No acute ischemia, acute hemorrhage, mass effect, midline shift, or hy drocephalus. Previously seen focal lesion in the left posterior lateral medulla remains unchanged. Focal lesion in the subcortical white matter at the level of left precentral gyrus remains unchanged. Subtle changes along the inferior body of the corpus callosum remains unchanged. No enhancement is seen at this les ions. In the last MRI scan, enhancement is seen in the intracanalicular optic nerves bilaterally more on th e left. This has resolved almost completely. As seen in the last MRI scan, volume loss is seen in the cerebellar vermis. Mucosal thickening in the right mastoid air cells has decreased. IMPRESSION: No new lesion in the brain Previously seen enhancement in the intracanalicular optic nerves has resolved almost completely. Lesions along the inferior margin of body of corpus callosum of the isthmus remains unchanged Nonenhancing subcortical white matter lesion in the lateral left precentral gyrus remains unchanged; focal lesion in the left posterior medial medulla remains unchanged Signer Name: Sonny Menchaca MD Signed: 06/30/2019 12:46 PM Workstation Name: [id number]
--- NOTE | 2019-06-30 13:48 | Progress Note ---
Assessment and Plan Chest pain, atypical cycled troponins are normal. ECG is benign. Optic neuritis Hypertension Obesity Prior CVA Hx of PE requiring trach placement in the recent past on eliquis An echocardiogram reports a normal left ventricular systolic function, ejection fraction 50-55%. Conservative cardiac management. We will follow intermittently. Subjective Date of service: 06/30/19 Principal diagnosis: Optic neuritis Interval history: Patient has no cardiac complaints. No distress noted. Objective Vital Signs Temp Pulse Resp BP BP Pulse Ox 06/30/19 11:04 98.2 F 50 L 19 113/56 99 06/30/19 04:07 97.3 F L 51 L 16 106/57 97 06/30/19 03:33 46 L 06/30/19 00:01 97.4 F L 68 16 124/59 97 06/29/19 23:21 97.4 F L 68 16 124/59 97 06/29/19 22:56 56 L 06/29/19 20:06 58 L 06/29/19 20:00 97.8 F 55 L 16 132/67 98 06/29/19 19:36 98.9 F 49 L 16 132/67 98 06/29/19 17:51 98.0 F 48 L 18 123/78 96 06/29/19 15:30 52 L 107/63 96 - Physical Examination General: No Apparent Distress HEENT: Positive: PERRL Neck: Positive: neck supple Cardiac: Positive: Reg Rate and Rhythm Lungs: Positive: Decreased Breath Sounds Neuro: Positive: Weakness Extremities: Absent: edema
[2019-06-30] MEDS: IGA AVG IV SCH (14:52)
[2019-06-30] MEDS: [UNRECOGNIZED DRUG - OTHER] IV SCH (14:52)
[2019-06-30] MEDS: IMMUNE GLOBUL IV SCH (14:52)
[2019-06-30] MEDS: GLY IV SCH (14:52)
[2019-06-30 16:22] LABS: ABG Base Excess 4.8 mmol/L (-2.0-3.0); ABG Methemoglobin 0.4 % (0.0-1.5); ABG Oxygen Saturation 96.6 % (95.0-99.0); ABG PCO2 41.3 mm Hg; ABG PH 7.465 pH Units (7.350-7.450); ABG PO2 79.6 mm Hg (80.0-90.0)
--- NOTE | 2019-06-30 21:09 | Progress Note ---
Assessment and Plan - Patient Problems (1) Optic neuritis Current Visit: Yes Status: Acute Plan to address problem: Patient optic neuritis improving clinically and via MRI results. Extensive and thorough work-up via neurology. Initially was question whether infectious versus autoimmune. At present appears to be improving with steroids and IVIG. Etiology MS versus [place] patient with recent ADEM and cerebral edema. Plan is to continue IVIG however patient had persistent bradycardia. Cardiology asked to reevaluate bradycardia to establish safety with giving IVIG. (2) CVA (cerebral vascular accident) Current Visit: Yes Status: Acute Qualifiers: CVA mechanism: unspecified Qualified Code(s): I63.9 - Cerebral infarction, unspecified Plan to address problem: Patient with history of CVA left-sided weakness ptosis. (3) Lactic acidosis Current Visit: Yes Status: Acute Plan to address problem: Lactic acidosis exact etiology unknown unlikely infection or sepsis. Has down trended from 3.9-2.6. Continue present observation. (4) Weakness Current Visit: No Status: Acute Plan to address problem: Weakness is resolving. Generalized global weakness appears to have resolved. (5) Morbid obesity Current Visit: No Status: Chronic Plan to address problem: Low-fat low carbohydrate diet. Importance of exercise with patient physically stable. (6) Pulmonary embolism Current Visit: Yes Status: Acute Plan to address problem: Patient history of pulmonary embolism. On Eliquis continue present management. (7) Chest pain Current Visit: Yes Status: Acute Plan to address problem: Patient chest pain atypical. No evidence of acute coronary syndrome given his sickle cell. Appears atypical has resolved work-up including troponins and cardiac isoenzymes EKG unremarkable. Ejection fraction 55 to 5%. History Interval history: Patient is able to talk. Discusses hospital course with me. All questions answered to the best of my ability in to her satisfaction. Patient eating without any acute concerns. Still decreased hearing vision she states seems to be improved. Hospitalist Physical - Constitutional Vitals: Temp Pulse Resp BP Pulse Ox 98.6 F 75 18 99/68 100 06/30/19 20:18 06/30/19 20:55 06/30/19 20:18 06/30/19 20:18 06/30/19 20:18 General appearance: Present: no acute distress, other (Ptosis left) - EENT ENT: other - Respiratory Respiratory effort: normal Respiratory: bilateral: CTA - Cardiovascular Rhythm: regular - Extremities Extremities: no ischemia, pulses intact, pulses symmetrical, No edema, normal temperature, normal color Peripheral Pulses: within normal limits - Abdominal General gastrointestinal: soft, non-tender, non-distended, normal bowel sounds - Integumentary Integumentary: Present: clear, warm, dry - Psychiatric Psychiatric: appropriate mood/affect, intact judgment & insight, memory intact - Neurologic Neurologic: CNII-XII intact, focal deficits, moves all extremities Results - Labs CBC & Chem 7: 06/28/19 07:16 06/28/19 07:16 Labs: Laboratory Last Values WBC 7.9 K/mm3 (4.5-11.0) 06/28/19 07:16 RBC 5.19 M/mm3 (3.65-5.03) H 06/28/19 07:16 Hgb 13.0 gm/dl (10.1-14.3) 06/28/19 07:16 Hct 40.1 % (30.3-42.9) 06/28/19 07:16 MCV 77 fl (79-97) L 06/28/19 07:16 MCH 25 pg (28-32) L 06/28/19 07:16 MCHC 33 % (30-34) 06/28/19 07:16 RDW 19.8 % (13.2-15.2) H 06/28/19 07:16 Plt Count 204 K/mm3 (140-440) 06/28/19 07:16 Lymph % (Auto) 47.5 % (13.4-35.0) H 06/21/19 20:06 [place] % (Auto) 10.1 % (0.0-7.3) H 06/21/19 20:06 Eos % (Auto) 2.2 % (0.0-4.3) 06/21/19 20:06 Baso % (Auto) 0.5 % (0.0-1.8) 06/21/19 20:06 Lymph # 2.1 K/mm3 (1.2-5.4) 06/21/19 20:06 [place] # 0.5 K/mm3 (0.0-0.8) 06/21/19 20:06 Eos # 0.1 K/mm3 (0.0-0.4) 06/21/19 20:06 Baso # 0.0 K/mm3 (0.0-0.1) 06/21/19 20:06 Seg Neutrophils % 39.7 % (40.0-70.0) L 06/21/19 20:06 Seg Neutrophils # 1.8 K/mm3 (1.8-7.7) 06/21/19 20:06 ESR 1 mm/Hr (0-20) 06/27/19 11:10 PT 12.9 Sec. (12.2-14.9) 06/21/19 20:06 INR 0.96 (0.87-1.13) 06/21/19 20:06 APTT 34.3 Sec. (24.2-36.6) 06/21/19 20:06 ABG pH 7.465 pH Units (7.350-7.450) H 06/30/19 16:02 ABG pCO2 41.3 mm Hg 06/30/19 16:02 ABG pO2 79.6 mm Hg (80.0-90.0) L 06/30/19 16:02 ABG HCO3 29.0 mmol/L (20.0-26.0) H 06/30/19 16:02 ABG O2 Saturation 96.6 % (95.0-99.0) 06/30/19 16:02 ABG O2 Content 16.9 (0.0-44) 06/30/19 16:02 ABG Base Excess 4.8 mmol/L (-2.0-3.0) H 06/30/19 16:02 ABG Hemoglobin 12.6 gm/dl (12.0-16.0) 06/30/19 16:02 ABG Carboxyhemoglobin 1.3 % (0.0-5.0) 06/30/19 16:02 ABG Methemoglobin 0.4 % (0.0-1.5) 06/30/19 16:02 Oxyhemoglobin 94.9 % (95.0-99.0) L 06/30/19 16:02 FiO2 21 % 06/30/19 16:02 Sodium 139 mmol/L (137-145) 06/28/19 07:16 Potassium 4.5 mmol/L (3.6-5.0) 06/28/19 07:16 Chloride 103.2 mmol/L (98-107) 06/28/19 07:16 Carbon Dioxide 20 mmol/L (22-30) L 06/28/19 07:16 Anion Gap 20 mmol/L 06/28/19 07:16 BUN 16 mg/dL (7-17) 06/28/19 07:16 Creatinine 0.5 mg/dL (0.7-1.2) L 06/28/19 07:16 Estimated GFR > 60 ml/min 06/28/19 07:16 BUN/Creatinine Ratio 32 % 06/28/19 07:16 Glucose 138 mg/dL (65-100) H 06/28/19 07:16 POC Glucose 109 (70-105) H 06/30/19 17:13 Lactic Acid 1.50 mmol/L (0.7-2.0) 06/30/19 14:43 Calcium 8.6 mg/dL (8.4-10.2) 06/28/19 07:16 Magnesium 2.20 mg/dL (1.7-2.3) 06/30/19 14:05 Iron 92 ug/dL (37-170) 06/30/19 08:14 TIBC 215 mcg/dL (250-450) L 06/30/19 08:14 Ferritin 19.2 ng/mL (13.0-400.0) 06/30/19 08:14 Total Bilirubin 0.40 mg/dL (0.1-1.2) 06/21/19 20:06 AST 15 units/L (5-40) 06/21/19 20:06 ALT 11 units/L (7-56) 06/21/19 20:06 Alkaline Phosphatase 77 units/L (35-129) 06/21/19 20:06 Lactate Dehydrogenase 123 units/L (91-180) 06/27/19 11:10 Total Creatine Kinase 16 units/L (30-135) L 06/29/19 14:01 CK-MB (CK-2) < 1.0 ng/mL (0.0-4.0) 06/22/19 10:02 CK-MB (CK-2) Rel Index 3.7 (0-4) 06/22/19 10:02 Troponin T < 0.010 ng/mL (0.00-0.029) 06/26/19 18:37 C-Reactive Protein 0.00 mg/dL (0.00-1.30) 06/27/19 11:10 Total Protein 7.2 g/dL (6.3-8.2) 06/21/19 20:06 Albumin 4.2 g/dL (3.9-5) 06/21/19 20:06 Albumin/Globulin Ratio 1.4 % 06/21/19 20:06 Triglycerides 24 mg/dL (2-149) 06/23/19 06:06 Cholesterol 94 mg/dL (50-199) 06/23/19 06:06 LDL Cholesterol Direct 42 mg/dL (50-130) L 06/23/19 06:06 HDL Cholesterol 53 mg/dL (40-59) 06/23/19 06:06 Cholesterol/HDL Ratio 1.77 % 06/23/19 06:06 Vitamin B12 396.0 pg/mL (211-911) 06/30/19 08:14 Folate 5.07 ng/mL (7.3-26.0) L 06/30/19 08:14 TSH 1.520 mlU/mL (0.270-4.200) 06/30/19 14:05 Free T4 1.32 ng/dL (0.76-1.46) 06/30/19 14:05 HCG, Quant < 2 mIU/mL (0-4) 06/21/19 20:19 CSF Appearance Clear 06/22/19 08:55 CSF Color Colorless 06/22/19 08:55 CSF WBC 35 /mm3 (1-10) 06/22/19 08:55 CSF RBC 4 /mm3 (0-0) 06/22/19 08:55 CSF Seg Neutrophils 6.8 % (0-6) 06/22/19 08:55 CSF Lymphocytes % 73.9 % (40-80) 06/22/19 08:55 CSF Reactive Lymphs 0 % 06/22/19 08:55 CSF Monocytes % 15.9 % (15-45) 06/22/19 08:55 CSF Eosinophils % 3.4 % 06/22/19 08:55 CSF Basophils 0 % 06/22/19 08:55 CSF Pathologist Review C 06/22/19 08:55 CSF Glucose 83 mg/dL 06/22/19 08:55 CSF Total Protein 28 mg/dL 06/22/19 08:55 CSF VDRL Nonreactive (Nonreactive) 06/22/19 08:55 UZAIR Screen Negative (Negative) 06/23/19 13:18 Complement C3 132 mg/dL (83-193) 06/23/19 13:18 Complement C4 29 mg/dL (15-57) 06/23/19 13:18 Syphilis IgG Antibody Non-reactive (NonReactive) 06/23/19 13:18 CMV DNA PCR log rn endoscopy/mL See scanned result 06/23/19 11:49 Enterovirus (PCR) Cmmt See scanned result 06/22/19 08:55 EBV Capsid Ag IgG, IgM <36.00 U/mL (<36.00) 06/23/19 11:49 EBV Capsid Ag IgG Titer >750.00 U/mL (<18.00) H 06/23/19 11:49 EBV Nuclear Ag IgG Indx 313.00 U/mL (<18.00) H 06/23/19 11:49 EBV Interpretation Past 06/23/19 11:49 HSV I DNA PCR See scanned result 06/22/19 08:55 HSV II DNA PCR See scanned result 06/22/19 08:55 HIV-1 Antibody See scanned result 06/23/19 11:49 HIV-1 RNA PCR copies/ml <20 Copies/mL 06/23/19 11:49 HIV-1 RNA (PCR) log <1.30 Log cps/mL 06/23/19 11:49 HIV-2 Ab (Immunoblot) See scanned result 06/23/19 11:49 VZV (Qnt-PCR) See scanned result 06/22/19 08:55 Active Medications - Current Medications Current Medications: Generic Name Dose Route Start Last Admin Trade Name Freq PRN Reason Stop Dose Admin Acetaminophen 650 mg 06/22/19 03:42 06/28/19 21:18 Tylenol PO 650 mg Q4H PRN Administration Pain, Mild (1-3) Apixaban 5 mg 06/24/19 16:00 06/30/19 11:35 Eliquis PO 5 mg BID VY Administration Protocol Atorvastatin Calcium 40 mg 06/22/19 22:00 06/29/19 21:22 Lipitor PO 40 mg QHS VY Administration Bisacodyl 10 mg 06/22/19 03:42 Dulcolax [place] QDAY PRN Constipation Ferrous Sulfate 325 mg 06/22/19 10:00 06/30/19 11:35 Feosol PO 325 mg QDAY VY Administration Sodium Chloride 1,000 mls @ 75 mls/hr 06/30/19 11:30 Nacl 0.9% 1000 Ml IV DIRECT VY IMMUNE GLOBUL G/GLY/IGA AVG 46 300 mls @ 56 mls/hr 06/30/19 14:50 06/30/19 14:52 20 gm/ IMMUNE GLOBUL G/GLY/ IV 07/03/19 10:01 56 mls/hr IGA AVG 46 10 gm/ Q24HR VY Administration Miscellaneous Protocol Levetiracetam 750 mg 06/24/19 12:00 06/30/19 11:36 Keppra PO 750 mg BID VY Administration Magnesium Hydroxide 30 ml 06/22/19 03:42 06/28/19 18:35 Milk Of Magnesia PO 30 ml Q4H PRN Administration Constipation Ondansetron HCl 4 mg 06/22/19 03:42 Zofran IV Q8H PRN Nausea And Vomiting Pantoprazole Sodium 40 mg 06/27/19 10:00 06/30/19 11:35 Protonix PO 40 mg BID VY Administration Sodium Chloride 10 ml 06/22/19 03:42 06/29/19 21:24 Sodium Chloride Flush Syringe 10 Ml IV 10 ml PRN PRN Administration LINE FLUSH Nutrition/Malnutrition Assess - Dietary Evaluation Nutrition/Malnutrition Findings: Nutrition Notes Start: 06/23/19 15:22 Freq: Status: Active Protocol: Document 06/30/19 13:11 LM (Rec: 06/30/19 13:12 LM [id number]) Nutrition Notes Need for Assessment generated from: LOS Initial or Follow up Brief Note Subjective/Other Information Screen for LOS. Pt eating 75- 100%. Nutrition Intervention Revisit per MD consult or patient Sign Off request:
[2019-06-30 22:00] LABS: ANA Screen, IFA Negative (Negative)
[2019-07-01] MEDS: PANTOPRAZOLE 40 MG TAB PO SCH ×2 (00:40→09:47)
[2019-07-01] MEDS: levETIRAcetam 500 MG TAB PO SCH ×2 (00:41→09:46)
[2019-07-01] MEDS: APIXABAN 5 MG TAB PO SCH ×2 (00:41→09:47)
--- NOTE | 2019-07-01 01:24 | Cat Scan Report ---
CT angiography of the chest with 2-D reconstructions INDICATION: Hilar adenopathy, prior PTE Thin section axial images were obtained as well as 2-D reformatted MIP images in all 3 planes COMPARISON: 06/27/2019 FINDINGS: There is no hilar or mediastinal adenopathy. No pleural or pericardial effusion. Lung windo ws show no nodules, masses or infiltrates. There is no thoracic aortic aneurysm or dissection present . Routine axial images as well as 2-D reconstructions through the pulmonary arteries show no evidence of emboli. There is slight basilar atelectasis. IMPRESSION: Negative chest CTA Automated exposure control was utilized to diminish radiation dose. Signer Name: Feliberto Tinajero MD Signed: 07/01/2019 1:20 AM Workstation Name: [id number]
--- NOTE | 2019-07-01 07:02 | Hem/Onc Progress Note ---
Assessment and Plan # Vision issues - being followed by neurology - ? immune eitology - h/o pl exchange h/o steroid trial IVIG # CVA? - neurology following # Sickle disorder - will Ix # h/o PE - pt was on eliquis then did not take same for some time - at [facility] - pt was given 5 mg q 12 # h/o seizure # h/o HTN ,obesity, hyperlipidemia Based on the labs - and pt history, she has sickle trait - with normal hb - low MCV - def Ix - pt on oral iron - sickle trait is uncommon to have neurology issues hb electrophoresis to r/o Hb SC disease 06/30 CTA - no PE Leg - no dvt pt on eliquis 5 q 12 - I prefer decrease of same to 2.5 q 12 - as her mobility is limited and she will be at risk of rec dvt - Patient Problems (1) CVA (cerebral vascular accident) Current Visit: Yes Status: Acute Qualifiers: CVA mechanism: unspecified Qualified Code(s): I63.9 - Cerebral infarction, unspecified Subjective Date of service: 07/01/19 Principal diagnosis: pe - sickle trait Interval history: left face sensation better Objective - Exam Narrative Exam: Gen. appearance: Patient lying in bed, no apparent distress HEENT: Normocephalic, atraumatic, pupils equally round and reactive to light, extraocular movement intact, and no sclericterus,. No JVD or thyromegaly or nodule,neck supple, no carotid bruit ,mucous membranes moist, no exudate or erythema Heart: S1, S2, regular rate and rhythm Lungs: Clear bilaterally, breathing comfortable Abdomen: Positive bowel sounds, nontender, nondistended, no organomegaly Extremity: no edema, cyanosis, clubbing Skin: No rash, nodules, warm, dry Neuro: speech is fluent, residual left-sided weakness, sensory intact - Constitutional Vitals: Last Vital Signs Temp 97.7 F 07/01/19 05:04 Pulse 56 L 07/01/19 05:04 Resp 18 07/01/19 05:04 BP 106/50 07/01/19 05:04 Pulse Ox 99 07/01/19 05:04 - Labs Lab Results: Laboratory Results - last 24 hr 06/22/19 06/27/19 06/30/19 08:55 11:10 08:14 ABG pH ABG pCO2 ABG pO2 ABG HCO3 ABG O2 Saturation ABG O2 Content ABG Base Excess ABG Hemoglobin ABG Carboxyhemoglobin ABG Methemoglobin Oxyhemoglobin FiO2 POC Glucose Lactic Acid 2.60 H* Magnesium Iron TIBC Ferritin Vitamin B12 Folate TSH Free T4 UZAIR Screen Negative Enterovirus (PCR) Cmmt See scanned result HSV I DNA PCR See scanned result HSV II DNA PCR See scanned result VZV (Qnt-PCR) See scanned result 06/30/19 06/30/19 06/30/19 08:14 08:14 08:14 ABG pH ABG pCO2 ABG pO2 ABG HCO3 ABG O2 Saturation ABG O2 Content ABG Base Excess ABG Hemoglobin ABG Carboxyhemoglobin ABG Methemoglobin Oxyhemoglobin FiO2 POC Glucose Lactic Acid Magnesium Iron 92 TIBC 215 L Ferritin 19.2 Vitamin B12 396.0 Folate TSH Free T4 UZAIR Screen Enterovirus (PCR) Cmmt HSV I DNA PCR HSV II DNA PCR VZV (Qnt-PCR) 06/30/19 06/30/19 06/30/19 08:14 08:31 11:45 ABG pH ABG pCO2 ABG pO2 ABG HCO3 ABG O2 Saturation ABG O2 Content ABG Base Excess ABG Hemoglobin ABG Carboxyhemoglobin ABG Methemoglobin Oxyhemoglobin FiO2 POC Glucose 92 86 Lactic Acid Magnesium Iron TIBC Ferritin Vitamin B12 Folate 5.07 L TSH Free T4 UZAIR Screen Enterovirus (PCR) Cmmt HSV I DNA PCR HSV II DNA PCR VZV (Qnt-PCR) 06/30/19 06/30/19 06/30/19 14:05 14:05 14:05 ABG pH ABG pCO2 ABG pO2 ABG HCO3 ABG O2 Saturation ABG O2 Content ABG Base Excess ABG Hemoglobin ABG Carboxyhemoglobin ABG Methemoglobin Oxyhemoglobin FiO2 POC Glucose Lactic Acid Magnesium 2.20 Iron TIBC Ferritin Vitamin B12 Folate TSH 1.520 Free T4 1.32 UZAIR Screen Enterovirus (PCR) Cmmt HSV I DNA PCR HSV II DNA PCR VZV (Qnt-PCR) 06/30/19 06/30/19 06/30/19 14:43 16:02 17:13 ABG pH 7.465 H ABG pCO2 41.3 ABG pO2 79.6 L ABG HCO3 29.0 H ABG O2 Saturation 96.6 ABG O2 Content 16.9 ABG Base Excess 4.8 H ABG Hemoglobin 12.6 ABG Carboxyhemoglobin 1.3 ABG Methemoglobin 0.4 Oxyhemoglobin 94.9 L FiO2 21 POC Glucose 109 H Lactic Acid 1.50 Magnesium Iron TIBC Ferritin Vitamin B12 Folate TSH Free T4 UZAIR Screen Enterovirus (PCR) Cmmt HSV I DNA PCR HSV II DNA PCR VZV (Qnt-PCR) 06/30/19 07/01/19 21:22 05:25 ABG pH ABG pCO2 ABG pO2 ABG HCO3 ABG O2 Saturation ABG O2 Content ABG Base Excess ABG Hemoglobin ABG Carboxyhemoglobin ABG Methemoglobin Oxyhemoglobin FiO2 POC Glucose 91 83 Lactic Acid Magnesium Iron TIBC Ferritin Vitamin B12 Folate TSH Free T4 UZAIR Screen Enterovirus (PCR) Cmmt HSV I DNA PCR HSV II DNA PCR VZV (Qnt-PCR) Medications & Allergies - Medications Allergies/Adverse Reactions: Allergies No Known Allergies Allergy (Unverified 08/21/18 16:02) Home Medications: Home Medications Medication Instructions Recorded Confirmed Last Taken Type AtorvaSTATin [Lipitor] 40 mg PO QHS 06/21/19 06/21/19 Unknown History Ferrous Sulfate [Iron 325 MG] 325 mg PO QDAY 06/21/19 06/21/19 Unknown History amLODIPine [Norvasc] 10 mg PO DAILY 06/21/19 06/21/19 Unknown History carvediloL [Coreg] 12.5 mg PO BID 06/21/19 06/21/19 Unknown History Apixaban [Eliquis] 5 tab PO BID 06/24/19 06/24/19 Unknown History Active Medications: Generic Name Dose Route Start Last Admin Trade Name Freq PRN Reason Stop Dose Admin Acetaminophen 650 mg 06/22/19 03:42 06/28/19 21:18 Tylenol PO 650 mg Q4H PRN Administration Pain, Mild (1-3) Apixaban 5 mg 06/24/19 16:00 07/01/19 00:41 Eliquis PO 5 mg BID VY Administration Protocol Atorvastatin Calcium 40 mg 06/22/19 22:00 07/01/19 00:41 Lipitor PO 40 mg QHS VY Administration Bisacodyl 10 mg 06/22/19 03:42 Dulcolax [place] QDAY PRN Constipation Ferrous Sulfate 325 mg 06/22/19 10:00 06/30/19 11:35 Feosol PO 325 mg QDAY VY Administration Sodium Chloride 1,000 mls @ 75 mls/hr 06/30/19 11:30 Nacl 0.9% 1000 Ml IV DIRECT VY IMMUNE GLOBUL G/GLY/IGA AVG 46 300 mls @ 56 mls/hr 06/30/19 14:50 06/30/19 14:52 20 gm/ IMMUNE GLOBUL G/GLY/ IV 07/03/19 10:01 56 mls/hr IGA AVG 46 10 gm/ Q24HR VY Administration Miscellaneous Protocol Levetiracetam 750 mg 06/24/19 12:00 07/01/19 00:41 Keppra PO 750 mg BID VY Administration Magnesium Hydroxide 30 ml 06/22/19 03:42 06/28/19 18:35 Milk Of Magnesia PO 30 ml Q4H PRN Administration Constipation Ondansetron HCl 4 mg 06/22/19 03:42 Zofran IV Q8H PRN Nausea And Vomiting Pantoprazole Sodium 40 mg 06/27/19 10:00 07/01/19 00:40 Protonix PO 40 mg BID VY Administration Sodium Chloride 10 ml 06/22/19 03:42 06/29/19 21:24 Sodium Chloride Flush Syringe 10 Ml IV 10 ml PRN PRN Administration LINE FLUSH
--- NOTE | 2019-07-01 08:27 | Progress Note ---
Assessment and Plan optic neuritis L > R , still improving both clinically and radiographically, APD resolved , s/p 5 days of iv steroids, recent hx of likey ADEM w cerebral edema, uncal herniation, L lat. 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 C spine MRI : normal pt as other areas of gliosis on brain mri, likely inflamm, autoimm process causing optic neuritis, will cont IVIG, total 5 days f/u MRI b in 2 - 3 mo pts oligo clonals were not sent when seen last and completed LP/CSF studies 06/22, pt will need oligo clonal bands CSF and serum she is on eliquis, pt will need this study either as an inpt or outpt, but eliquis must be held, primary attending should discuss the risks and benefits of stopping eliquis w HEME and then place LP under fluoro order , also pt has no PE on recent CTA chest, she may not be indicated for eliquis, I will defer to primary attending and [facility]EME I dont necessarily need oligoclonal bands, but it would help with confirming dx, I am already treating pt for MS/demyelination exacerbation f/u w neurology outpt bradycardia : intermittent, impeding IVIG treatment, cardiology aware hypotension : may worsen w IVIG, keep normotensive w fluids as best poss, no rapid position changes, avoid hypotensive meds check orthostatics daily lactic acidosis, improving, appreciate nephro sickle cell hx: [facility]EM[facility] on board, appreciate their help, LE dopplers PE: stable eliquis persist L sided weakness , L face ptosis, : abn sensory exam can be d/t hx of uncal herniation, vs L med. post. 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, stable, keppra -----discussion --- op neuritis: this may be secondary to a recurrent/replapse of autoimmune/ inflammatory disease process of the BEEF RIBBER now sparing the peripheral nerves of the LEGS and Arms but may have a contribution to the CN deficits I see on exam vs hx of cerebral edema/posterior, herniation/uncal (though the optic neuritis is a new dis process not related to hx of cerebral edema / herniation) based on [facility] records outside hospital suggest that patient may have had a ADEM inflamm BEEF RIBBER disease process s/p PLEX versus an paraneo/autoimmune disease process causing a variant of GBS affecting brain andperipheral nerves v viral encephalitis 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 Patient is status post plasma exchange at outside hospital in January 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 She is status post cerebral edema with near downward herniation uncal herniation bilateral which would explain the cranial nerve deficits I see now including left ptosis and right facial droop likely because of injury would be cerebral edema and herniation There was prior insults to the cerebellar hemispheres likely due to an inflammatory process however the MRI b at the outside hospital did not mention stroke Subjective Date of service: 07/01/19 Principal diagnosis: pe - sickle trait Interval history: lactic acid improving HR mainly 75 but will kaden down no a.fib CTA chest , neg for PE SS trait low MCV L vision almost back to normal IVIG , pt tolerating eliquis keppra C spine mri pending no fever no MCKEON no new neuro complaints no n/v no d/v no field cut no new lat. deficits weakness or new focal brain complaints still chronic R face droop , L ptosis pt denies sensory loss L arm still feels heavy no LOC no sz no issues overnight Objective - Exam Narrative Exam: aox4 no aphasia hoarse mild dysarthria pupils : no apd, reactive b/l eomi VFF no d/v CN : R face droop and L ptosis (seems improving ) full sensation to face R side, decrease temp arm leg, but normal pin prick L side, arm leg, normal sensory L arm drift, 4/5 remaining power testing to limbs 5/5 mild ataxic stance and gait tone symm dtr are not increased to any limb RI down going no extra movements - Vital Sign Vital Signs - 12hr 06/30/19 06/30/19 07/01/19 20:55 23:26 05:04 Temperature 98.2 F 97.7 F Pulse Rate 75 62 56 L Respiratory 18 18 Rate Blood Pressure 121/57 106/50 O2 Sat by Pulse 100 99 Oximetry - Laboratory Findings CBC and BMP: 06/28/19 07:16 06/28/19 07:16 Abnormal Lab Findings: Abnormal Labs 02/25/20 02/25/20 02/26/20 20:06 20:06 10:02 RBC 5.26 H MCV 77 L MCH 25 L RDW 20.1 H Lymph % (Auto) 47.5 H [place] % (Auto) 10.1 H Seg Neutrophils % 39.7 L ABG pH ABG pO2 ABG HCO3 ABG Base Excess Oxyhemoglobin Carbon Dioxide Creatinine 0.6 L Glucose POC Glucose Lactic Acid TIBC Total Creatine Kinase 27 L LDL Cholesterol Direct Folate EBV Capsid Ag IgG Titer EBV Nuclear Ag IgG Indx 06/23/19 06/23/19 06/23/19 06:06 06:06 11:49 RBC 5.24 H MCV 78 L MCH 25 L RDW 19.9 H Lymph % (Auto) [place] % (Auto) Seg Neutrophils % ABG pH ABG pO2 ABG HCO3 ABG Base Excess Oxyhemoglobin Carbon Dioxide 19 L Creatinine 0.5 L Glucose 155 H POC Glucose Lactic Acid TIBC Total Creatine Kinase LDL Cholesterol Direct 42 L Folate EBV Capsid Ag IgG Titer >750.00 H EBV Nuclear Ag IgG Indx 313.00 H 06/23/19 06/23/19 06/24/19 18:40 20:11 19:57 RBC MCV MCH RDW Lymph % (Auto) [place] % (Auto) Seg Neutrophils % ABG pH ABG pO2 ABG HCO3 ABG Base Excess Oxyhemoglobin Carbon Dioxide Creatinine Glucose POC Glucose 126 H 132 H 125 H Lactic Acid TIBC Total Creatine Kinase LDL Cholesterol Direct Folate EBV Capsid Ag IgG Titer EBV Nuclear Ag IgG Indx 06/24/19 06/25/19 06/25/19 21:27 12:04 16:01 RBC MCV MCH RDW Lymph % (Auto) [place] % (Auto) Seg Neutrophils % ABG pH ABG pO2 ABG HCO3 ABG Base Excess Oxyhemoglobin Carbon Dioxide Creatinine Glucose POC Glucose 118 H 128 H 124 H Lactic Acid TIBC Total Creatine Kinase LDL Cholesterol Direct Folate EBV Capsid Ag IgG Titer EBV Nuclear Ag IgG Indx 06/25/19 06/26/19 06/26/19 20:41 08:34 11:29 RBC MCV MCH RDW Lymph % (Auto) [place] % (Auto) Seg Neutrophils % ABG pH ABG pO2 ABG HCO3 ABG Base Excess Oxyhemoglobin Carbon Dioxide Creatinine Glucose POC Glucose 222 H 132 H 165 H Lactic Acid TIBC Total Creatine Kinase LDL Cholesterol Direct Folate EBV Capsid Ag IgG Titer EBV Nuclear Ag IgG Indx 06/26/19 06/26/19 06/26/19 16:46 16:46 18:37 RBC MCV MCH RDW Lymph % (Auto) [place] % (Auto) Seg Neutrophils % ABG pH ABG pO2 ABG HCO3 ABG Base Excess Oxyhemoglobin Carbon Dioxide Creatinine 0.6 L Glucose 119 H POC Glucose Lactic Acid 2.10 H* 2.50 H* TIBC Total Creatine Kinase LDL Cholesterol Direct Folate EBV Capsid Ag IgG Titer EBV Nuclear Ag IgG Indx 06/26/19 06/26/19 06/27/19 20:40 22:30 00:48 RBC MCV MCH RDW Lymph % (Auto) [place] % (Auto) Seg Neutrophils % ABG pH ABG pO2 ABG HCO3 ABG Base Excess Oxyhemoglobin Carbon Dioxide Creatinine Glucose POC Glucose 108 H Lactic Acid 2.40 H* 2.50 H* TIBC Total Creatine Kinase LDL Cholesterol Direct Folate EBV Capsid Ag IgG Titer EBV Nuclear Ag IgG Indx 06/27/19 06/27/19 06/27/19 07:58 11:10 15:55 RBC MCV MCH RDW Lymph % (Auto) [place] % (Auto) Seg Neutrophils % ABG pH ABG pO2 ABG HCO3 ABG Base Excess Oxyhemoglobin Carbon Dioxide Creatinine Glucose POC Glucose 139 H 165 H Lactic Acid TIBC Total Creatine Kinase 14 L LDL Cholesterol Direct Folate EBV Capsid Ag IgG Titer EBV Nuclear Ag IgG Indx 06/27/19 06/28/19 06/28/19 22:29 07:16 07:16 RBC 5.19 H MCV 77 L MCH 25 L RDW 19.8 H Lymph % (Auto) [place] % (Auto) Seg Neutrophils % ABG pH ABG pO2 ABG HCO3 ABG Base Excess Oxyhemoglobin Carbon Dioxide 20 L Creatinine 0.5 L Glucose 138 H POC Glucose 116 H Lactic Acid TIBC Total Creatine Kinase LDL Cholesterol Direct Folate EBV Capsid Ag IgG Titer EBV Nuclear Ag IgG Indx 06/28/19 06/28/19 06/28/19 08:12 12:06 16:49 RBC MCV MCH RDW Lymph % (Auto) [place] % (Auto) Seg Neutrophils % ABG pH ABG pO2 ABG HCO3 ABG Base Excess Oxyhemoglobin Carbon Dioxide Creatinine Glucose POC Glucose 155 H 114 H 129 H Lactic Acid TIBC Total Creatine Kinase LDL Cholesterol Direct Folate EBV Capsid Ag IgG Titer EBV Nuclear Ag IgG Indx 06/28/19 06/29/19 06/29/19 20:43 11:54 14:01 RBC MCV MCH RDW Lymph % (Auto) [place] % (Auto) Seg Neutrophils % ABG pH ABG pO2 ABG HCO3 ABG Base Excess Oxyhemoglobin Carbon Dioxide Creatinine Glucose POC Glucose 179 H 114 H Lactic Acid 3.20 H* TIBC Total Creatine Kinase LDL Cholesterol Direct Folate EBV Capsid Ag IgG Titer EBV Nuclear Ag IgG Indx 06/29/19 06/29/19 06/29/19 14:01 15:42 16:39 RBC MCV MCH RDW Lymph % (Auto) [place] % (Auto) Seg Neutrophils % ABG pH ABG pO2 ABG HCO3 ABG Base Excess Oxyhemoglobin Carbon Dioxide Creatinine Glucose POC Glucose Lactic Acid 2.40 H* 2.50 H* TIBC Total Creatine Kinase 16 L LDL Cholesterol Direct Folate EBV Capsid Ag IgG Titer EBV Nuclear Ag IgG Indx 06/29/19 06/29/19 06/29/19 19:18 21:08 22:58 RBC MCV MCH RDW Lymph % (Auto) [place] % (Auto) Seg Neutrophils % ABG pH ABG pO2 ABG HCO3 ABG Base Excess Oxyhemoglobin Carbon Dioxide Creatinine Glucose POC Glucose Lactic Acid 3.90 H* 5.40 H* 3.20 H* TIBC Total Creatine Kinase LDL Cholesterol Direct Folate EBV Capsid Ag IgG Titer EBV Nuclear Ag IgG Indx 06/30/19 06/30/19 06/30/19 08:14 08:14 08:14 RBC MCV MCH RDW Lymph % (Auto) [place] % (Auto) Seg Neutrophils % ABG pH ABG pO2 ABG HCO3 ABG Base Excess Oxyhemoglobin Carbon Dioxide Creatinine Glucose POC Glucose Lactic Acid 2.60 H* TIBC 215 L Total Creatine Kinase LDL Cholesterol Direct Folate 5.07 L EBV Capsid Ag IgG Titer EBV Nuclear Ag IgG Indx 06/30/19 06/30/19 16:02 17:13 RBC MCV MCH RDW Lymph % (Auto) [place] % (Auto) Seg Neutrophils % ABG pH 7.465 H ABG pO2 79.6 L ABG HCO3 29.0 H ABG Base Excess 4.8 H Oxyhemoglobin 94.9 L Carbon Dioxide Creatinine Glucose POC Glucose 109 H Lactic Acid TIBC Total Creatine Kinase LDL Cholesterol Direct Folate EBV Capsid Ag IgG Titer EBV Nuclear Ag IgG Indx
[2019-07-01] MEDS: FERROUS SULFATE 325 MG TAB PO SCH (09:46)
--- NOTE | 2019-07-01 10:07 | Progress Note ---
Assessment and Plan Chest pain, atypical cycled troponins are normal. ECG is benign. Optic neuritis Hypertension Obesity Prior CVA Hx of PE requiring trach placement in the recent past on eliquis An echocardiogram reports a normal left ventricular systolic function, ejection fraction 50-55%. Conservative cardiac management. We will follow intermittently. Subjective Date of service: 07/01/19 Principal diagnosis: pe - sickle trait Interval history: Patient has no cardiac complaints. Stable sinus rhythm on telemetry. Objective Vital Signs Temp Pulse Resp BP Pulse Ox 07/01/19 08:24 98.6 F 18 106/61 07/01/19 05:04 97.7 F 56 L 18 106/50 99 06/30/19 23:26 98.2 F 62 18 121/57 100 06/30/19 20:55 75 06/30/19 20:18 98.6 F 75 18 99/68 100 06/30/19 17:02 98.2 F 66 18 108/79 99 06/30/19 16:00 58 L 06/30/19 12:00 59 L 06/30/19 11:04 98.2 F 50 L 19 113/56 99 - Physical Examination General: No Apparent Distress HEENT: Positive: PERRL Neck: Positive: neck supple Cardiac: Positive: Reg Rate and Rhythm Lungs: Positive: Decreased Breath Sounds Neuro: Positive: Weakness Extremities: Absent: edema
--- NOTE | 2019-07-01 11:07 | Progress Note ---
Assessment and Plan 1. Lactic acidosis: Cause of lactic acidosis is unclear. Patient has shown no signs of sepsis or evidence of infection per ID. ID has signed off. No hx of HIV or DM. Lactic acidosis has resolved, now 1.50. Will monitor trend. Unless significant change overnight, will likely s/o tomorrow, 07/01. 2. 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 Improving. 3. H/o sickle disorder: LE dopplers negative for DVT bilaterally. Heme/Onc following. 4. PE: Stable on Eliquis. 5. Persistent L sided weakness: L face ptosis. Hx uncal herniation. C spine MRI essentially unremarkable. 6. Hypotension: Continue IV fluids. Monitor. Subjective Date of service: 07/01/19 Principal diagnosis: pe - sickle trait Interval history: Patient was seen and examined at the bedside. No family present at time of exam. Patient had no acute events overnight. Objective - Exam Narrative Exam: General appearance: well-developed, well-nourished, appears stated age, obese, chronically ill EENT: ATNC, PERRL, mucous membranes moist, hearing diminished Neck: Present: neck supple, trachea midline Respiratory: Clear to Ascultation Heart: regular, normal heart rate, S1S2, no murmurs Gastrointestinal: Present: normal, normoactive bowel sounds, obese Integumentary: no rash, warm and dry, other (tracheal scar noted) Neurologic: no focal deficit, alert and oriented x3, other (L arm weakness, all other extremities equal strength) Musculoskeletal: Present: other Psychiatric: mood/affect appropriate, cooperative - Vital Signs Vital signs: Vital Signs - 12hr 06/30/19 07/01/19 07/01/19 23:26 05:04 08:24 Temperature 98.2 F 97.7 F 98.6 F Pulse Rate 62 56 L Respiratory 18 18 18 Rate Blood Pressure 121/57 106/50 106/61 O2 Sat by Pulse 100 99 Oximetry - Lab 06/28/19 07:16 06/28/19 07:16 Most recent lab results ABG pH 7.465 pH Units (7.350-7.450) H 06/30/19 16:02 ABG pCO2 41.3 mm Hg 06/30/19 16:02 ABG pO2 79.6 mm Hg (80.0-90.0) L 06/30/19 16:02 ABG HCO3 29.0 mmol/L (20.0-26.0) H 06/30/19 16:02 ABG O2 Saturation 96.6 % (95.0-99.0) 06/30/19 16:02 Calcium 8.6 mg/dL (8.4-10.2) 06/28/19 07:16 Magnesium 2.20 mg/dL (1.7-2.3) 06/30/19 14:05 Medications & Allergies - Medications Allergies/Adverse Reactions: Allergies No Known Allergies Allergy (Unverified 08/21/18 16:02) Home Medications: Home Medications Medication Instructions Recorded Confirmed Last Taken Type AtorvaSTATin [Lipitor] 40 mg PO QHS 06/21/19 06/21/19 Unknown History Ferrous Sulfate [Iron 325 MG] 325 mg PO QDAY 06/21/19 06/21/19 Unknown History amLODIPine [Norvasc] 10 mg PO DAILY 06/21/19 06/21/19 Unknown History carvediloL [Coreg] 12.5 mg PO BID 06/21/19 06/21/19 Unknown History Apixaban [Eliquis] 5 tab PO BID 06/24/19 06/24/19 Unknown History Active Medications: Generic Name Dose Route Start Last Admin Trade Name Freq PRN Reason Stop Dose Admin Acetaminophen 650 mg 06/22/19 03:42 06/28/19 21:18 Tylenol PO 650 mg Q4H PRN Administration Pain, Mild (1-3) Apixaban 5 mg 06/24/19 16:00 07/01/19 09:47 Eliquis PO 5 mg BID VY Administration Protocol Atorvastatin Calcium 40 mg 06/22/19 22:00 07/01/19 00:41 Lipitor PO 40 mg QHS VY Administration Bisacodyl 10 mg 06/22/19 03:42 Dulcolax [place] QDAY PRN Constipation Ferrous Sulfate 325 mg 06/22/19 10:00 07/01/19 09:46 Feosol PO 325 mg QDAY VY Administration Sodium Chloride 1,000 mls @ 75 mls/hr 06/30/19 11:30 Nacl 0.9% 1000 Ml IV DIRECT VY IMMUNE GLOBUL G/GLY/IGA AVG 46 300 mls @ 56 mls/hr 06/30/19 14:50 06/30/19 14:52 20 gm/ IMMUNE GLOBUL G/GLY/ IV 07/03/19 10:01 56 mls/hr IGA AVG 46 10 gm/ Q24HR VY Administration Miscellaneous Protocol Levetiracetam 750 mg 06/24/19 12:00 07/01/19 09:46 Keppra PO 750 mg BID VY Administration Magnesium Hydroxide 30 ml 06/22/19 03:42 06/28/19 18:35 Milk Of Magnesia PO 30 ml Q4H PRN Administration Constipation Ondansetron HCl 4 mg 06/22/19 03:42 Zofran IV Q8H PRN Nausea And Vomiting Pantoprazole Sodium 40 mg 06/27/19 10:00 07/01/19 09:47 Protonix PO 40 mg BID VY Administration Sodium Chloride 10 ml 06/22/19 03:42 06/29/19 21:24 Sodium Chloride Flush Syringe 10 Ml IV 10 ml PRN PRN Administration LINE FLUSH
--- NOTE | 2019-07-01 12:28 | Magnetic Resonance Report ---
MRI CERVICAL SPINE 07/01/2019 INDICATION / CLINICAL INFORMATION: MAIN: L arm & leg weakness . COMPARISON: None available. FINDINGS: GENERAL OBSERVATIONS: Unenhanced MR images of the cervical spine were obtained. Reversal of cervical lordosis is centered at the C5 level with the patient positioned for this exam. Vertebral body alignment is otherwise unremarkable. [id number] ANALYSIS: C7-T1: Unremarkable. C6-7: Unremarkable. C5-6: Unremarkable. C4-5: Unremarkable. C3-4: Minimal diffuse disc bulging. C2-3: Unremarkable. CRANIO-CERVICAL JUNCTION: Unremarkable. BONE MARROW: No significant abnormality. PARASPINAL SOFT TISSUES: No significant abnormality. IMPRESSION: Essentially negative unenhanced MRI of the cervical spine. Signer Name: Santiago Malcolm MD Signed: 07/01/2019 12:23 PM Workstation Name: [id number]
[2019-07-01] MEDS: [UNRECOGNIZED DRUG - OTHER] IV SCH (12:46)
[2019-07-01] MEDS: IMMUNE GLOBUL IV SCH (12:46)
[2019-07-01] MEDS: IGA AVG IV SCH (12:46)
[2019-07-01] MEDS: GLY IV SCH (12:46)
--- NOTE | 2019-07-01 14:04 | Progress Note ---
Assessment and Plan Assessment and plan: Acute optic neuritis. Patient is improving clinically and radiographically. Patient has completed 5 days of IV steroids. MRI brain, neg for new issues. 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 Follow-up MRI brain 2 to 3 months. Follow-up oligoclonal bands CSF and serum Recent complicated CVA. Continue PT/OT Recent PE. Patient with previous pulmonary embolism was noncompliant with Eliquis. Currently on Eliquis. Hypertension. Continue antihypertensive medications. History Interval history: No new issues overnight. Patient reports hearing and visual acuity has improved Hospitalist Physical - Constitutional Vitals: Temp Pulse Resp BP Pulse Ox 98.6 F 56 L 18 106/61 99 07/01/19 08:24 07/01/19 05:04 07/01/19 08:24 07/01/19 08:24 07/01/19 05:04 General appearance: Present: no acute distress, other (Ptosis left) - EENT Eyes: Present: PERRL, EOM intact ENT: hearing intact, clear oral mucosa, dentition normal - Neck Neck: Present: supple, normal ROM - Respiratory Respiratory effort: normal Respiratory: bilateral: CTA - Cardiovascular Rhythm: regular Heart Sounds: Present: S1 & S2. Absent: gallop, rub - Extremities Extremities: no ischemia, No edema, Full ROM - Abdominal General gastrointestinal: soft, non-tender, non-distended, normal bowel sounds - Integumentary Integumentary: Present: clear, warm, dry - Neurologic Neurologic: CNII-XII intact, moves all extremities Results - Labs CBC & Chem 7: 06/28/19 07:16 06/28/19 07:16 Labs: Laboratory Last Values WBC 7.9 K/mm3 (4.5-11.0) 06/28/19 07:16 RBC 5.19 M/mm3 (3.65-5.03) H 06/28/19 07:16 Hgb 13.0 gm/dl (10.1-14.3) 06/28/19 07:16 Hct 40.1 % (30.3-42.9) 06/28/19 07:16 MCV 77 fl (79-97) L 06/28/19 07:16 MCH 25 pg (28-32) L 06/28/19 07:16 MCHC 33 % (30-34) 06/28/19 07:16 RDW 19.8 % (13.2-15.2) H 06/28/19 07:16 Plt Count 204 K/mm3 (140-440) 06/28/19 07:16 Lymph % (Auto) 47.5 % (13.4-35.0) H 06/21/19 20:06 Davis % (Auto) 10.1 % (0.0-7.3) H 06/21/19 20:06 Eos % (Auto) 2.2 % (0.0-4.3) 06/21/19 20:06 Baso % (Auto) 0.5 % (0.0-1.8) 06/21/19 20:06 Lymph # 2.1 K/mm3 (1.2-5.4) 06/21/19 20:06 Davis # 0.5 K/mm3 (0.0-0.8) 06/21/19 20:06 Eos # 0.1 K/mm3 (0.0-0.4) 06/21/19 20:06 Baso # 0.0 K/mm3 (0.0-0.1) 06/21/19 20:06 Seg Neutrophils % 39.7 % (40.0-70.0) L 06/21/19 20:06 Seg Neutrophils # 1.8 K/mm3 (1.8-7.7) 06/21/19 20:06 ESR 1 mm/Hr (0-20) 06/27/19 11:10 PT 12.9 Sec. (12.2-14.9) 06/21/19 20:06 INR 0.96 (0.87-1.13) 06/21/19 20:06 APTT 34.3 Sec. (24.2-36.6) 06/21/19 20:06 ABG pH 7.465 pH Units (7.350-7.450) H 06/30/19 16:02 ABG pCO2 41.3 mm Hg 06/30/19 16:02 ABG pO2 79.6 mm Hg (80.0-90.0) L 06/30/19 16:02 ABG HCO3 29.0 mmol/L (20.0-26.0) H 06/30/19 16:02 ABG O2 Saturation 96.6 % (95.0-99.0) 06/30/19 16:02 ABG O2 Content 16.9 (0.0-44) 06/30/19 16:02 ABG Base Excess 4.8 mmol/L (-2.0-3.0) H 06/30/19 16:02 ABG Hemoglobin 12.6 gm/dl (12.0-16.0) 06/30/19 16:02 ABG Carboxyhemoglobin 1.3 % (0.0-5.0) 06/30/19 16:02 ABG Methemoglobin 0.4 % (0.0-1.5) 06/30/19 16:02 Oxyhemoglobin 94.9 % (95.0-99.0) L 06/30/19 16:02 FiO2 21 % 06/30/19 16:02 Sodium 139 mmol/L (137-145) 06/28/19 07:16 Potassium 4.5 mmol/L (3.6-5.0) 06/28/19 07:16 Chloride 103.2 mmol/L (98-107) 06/28/19 07:16 Carbon Dioxide 20 mmol/L (22-30) L 06/28/19 07:16 Anion Gap 20 mmol/L 06/28/19 07:16 BUN 16 mg/dL (7-17) 06/28/19 07:16 Creatinine 0.5 mg/dL (0.7-1.2) L 06/28/19 07:16 Estimated GFR > 60 ml/min 06/28/19 07:16 BUN/Creatinine Ratio 32 % 06/28/19 07:16 Glucose 138 mg/dL (65-100) H 06/28/19 07:16 POC Glucose 106 (70-105) H 07/01/19 11:10 Lactic Acid 1.50 mmol/L (0.7-2.0) 06/30/19 14:43 Calcium 8.6 mg/dL (8.4-10.2) 06/28/19 07:16 Magnesium 2.20 mg/dL (1.7-2.3) 06/30/19 14:05 Iron 92 ug/dL (37-170) 06/30/19 08:14 TIBC 215 mcg/dL (250-450) L 06/30/19 08:14 Ferritin 19.2 ng/mL (13.0-400.0) 06/30/19 08:14 Total Bilirubin 0.40 mg/dL (0.1-1.2) 06/21/19 20:06 AST 15 units/L (5-40) 06/21/19 20:06 ALT 11 units/L (7-56) 06/21/19 20:06 Alkaline Phosphatase 77 units/L (35-129) 06/21/19 20:06 Lactate Dehydrogenase 123 units/L (91-180) 06/27/19 11:10 Total Creatine Kinase 16 units/L (30-135) L 06/29/19 14:01 CK-MB (CK-2) < 1.0 ng/mL (0.0-4.0) 06/22/19 10:02 CK-MB (CK-2) Rel Index 3.7 (0-4) 06/22/19 10:02 Troponin T < 0.010 ng/mL (0.00-0.029) 06/26/19 18:37 C-Reactive Protein 0.00 mg/dL (0.00-1.30) 06/27/19 11:10 Total Protein 7.2 g/dL (6.3-8.2) 06/21/19 20:06 Albumin 4.2 g/dL (3.9-5) 06/21/19 20:06 Albumin/Globulin Ratio 1.4 % 06/21/19 20:06 Triglycerides 24 mg/dL (2-149) 06/23/19 06:06 Cholesterol 94 mg/dL (50-199) 06/23/19 06:06 LDL Cholesterol Direct 42 mg/dL (50-130) L 06/23/19 06:06 HDL Cholesterol 53 mg/dL (40-59) 06/23/19 06:06 Cholesterol/HDL Ratio 1.77 % 06/23/19 06:06 Angiotensin Convert Enz See scanned result 06/27/19 11:10 Vitamin B12 396.0 pg/mL (211-911) 06/30/19 08:14 Folate 5.07 ng/mL (7.3-26.0) L 06/30/19 08:14 TSH 1.520 mlU/mL (0.270-4.200) 06/30/19 14:05 Free T4 1.32 ng/dL (0.76-1.46) 06/30/19 14:05 HCG, Quant < 2 mIU/mL (0-4) 06/21/19 20:19 CSF Appearance Clear 06/22/19 08:55 CSF Color Colorless 06/22/19 08:55 CSF WBC 35 /mm3 (1-10) 06/22/19 08:55 CSF RBC 4 /mm3 (0-0) 06/22/19 08:55 CSF Seg Neutrophils 6.8 % (0-6) 06/22/19 08:55 CSF Lymphocytes % 73.9 % (40-80) 06/22/19 08:55 CSF Reactive Lymphs 0 % 06/22/19 08:55 CSF Monocytes % 15.9 % (15-45) 06/22/19 08:55 CSF Eosinophils % 3.4 % 06/22/19 08:55 CSF Basophils 0 % 06/22/19 08:55 CSF Pathologist Review C 06/22/19 08:55 CSF Glucose 83 mg/dL 06/22/19 08:55 CSF Total Protein 28 mg/dL 06/22/19 08:55 CSF VDRL Nonreactive (Nonreactive) 06/22/19 08:55 UZAIR Screen Negative (Negative) 06/27/19 11:10 Complement C3 132 mg/dL (83-193) 06/23/19 13:18 Complement C4 29 mg/dL (15-57) 06/23/19 13:18 Syphilis IgG Antibody Non-reactive (NonReactive) 06/23/19 13:18 CMV DNA PCR 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 See scanned result 06/23/19 11:49 Enterovirus (PCR) Cmmt See scanned result 06/22/19 08:55 EBV Capsid Ag IgG, IgM <36.00 U/mL (<36.00) 06/23/19 11:49 EBV Capsid Ag IgG Titer >750.00 U/mL (<18.00) H 06/23/19 11:49 EBV Nuclear Ag IgG Indx 313.00 U/mL (<18.00) H 06/23/19 11:49 EBV Interpretation Past 06/23/19 11:49 HSV I DNA PCR See scanned result 06/22/19 08:55 HSV II DNA PCR See scanned result 06/22/19 08:55 HIV-1 Antibody See scanned result 06/23/19 11:49 HIV-1 RNA PCR copies/ml <20 Copies/mL 06/23/19 11:49 HIV-1 RNA (PCR) log <1.30 Log cps/mL 06/23/19 11:49 HIV-2 Ab (Immunoblot) See scanned result 06/23/19 11:49 VZV (Qnt-PCR) See scanned result 06/22/19 08:55 Active Medications - Current Medications Current Medications: Generic Name Dose Route Start Last Admin Trade Name Freq PRN Reason Stop Dose Admin Acetaminophen 650 mg 06/22/19 03:42 06/28/19 21:18 Tylenol PO 650 mg Q4H PRN Administration Pain, Mild (1-3) Apixaban 5 mg 06/24/19 16:00 07/01/19 09:47 Eliquis PO 5 mg BID VY Administration Protocol Atorvastatin Calcium 40 mg 06/22/19 22:00 07/01/19 00:41 Lipitor PO 40 mg QHS VY Administration Bisacodyl 10 mg 06/22/19 03:42 Dulcolax HI QDAY PRN Constipation Ferrous Sulfate 325 mg 06/22/19 10:00 07/01/19 09:46 Feosol PO 325 mg QDAY VY Administration Sodium Chloride 1,000 mls @ 75 mls/hr 06/30/19 11:30 Nacl 0.9% 1000 Ml IV DIRECT VY IMMUNE GLOBUL G/GLY/IGA AVG 46 300 mls @ 56 mls/hr 06/30/19 14:50 07/01/19 12:46 20 gm/ IMMUNE GLOBUL G/GLY/ IV 07/03/19 10:01 56 mls/hr IGA AVG 46 10 gm/ Q24HR VY Administration Miscellaneous Protocol Levetiracetam 750 mg 06/24/19 12:00 07/01/19 09:46 Keppra PO 750 mg BID VY Administration Magnesium Hydroxide 30 ml 06/22/19 03:42 06/28/19 18:35 Milk Of Magnesia PO 30 ml Q4H PRN Administration Constipation Ondansetron HCl 4 mg 06/22/19 03:42 Zofran IV Q8H PRN Nausea And Vomiting Pantoprazole Sodium 40 mg 06/27/19 10:00 07/01/19 09:47 Protonix PO 40 mg BID VY Administration Sodium Chloride 10 ml 06/22/19 03:42 06/29/19 21:24 Sodium Chloride Flush Syringe 10 Ml IV 10 ml PRN PRN Administration LINE FLUSH Nutrition/Malnutrition Assess - Dietary Evaluation Nutrition/Malnutrition Findings: Nutrition Notes Start: 06/23/19 15:22 Freq: Status: Active Protocol: Document 06/30/19 13:11 LM (Rec: 06/30/19 13:12 LM [email or web address]) Nutrition Notes Need for Assessment generated from: LOS Initial or Follow up Brief Note Subjective/Other Information Screen for LOS. Pt eating 75- 100%. Nutrition Intervention Revisit per MD consult or patient Sign Off request:
[2019-07-01 15:29] LABS: Basophils % (Auto) 0.1 % (0.0-1.8); Eosinophils # (Auto) 0.1 K/mm3 (0.0-0.4); Eosinophils % (Auto) 1.2 % (0.0-4.3); Hematocrit 41.3 % (30.3-42.9); Hemoglobin 13.2 gm/dl (10.1-14.3); Lymphocytes # (Auto) 1.9 K/mm3 (1.2-5.4); Lymphocytes % (Auto) 30.8 % (13.4-35.0); Mean Corpuscular HGB Conc 32 % (30-34); Mean Corpuscular Volume 79 fl (79-97); Monocytes # (Auto) 0.7 K/mm3 (0.0-0.8); Platelet Count 191 K/mm3 (140-440); Red Blood Count 5.23 M/mm3 (3.65-5.03)
[2019-07-01 15:37] LABS: BUN/Creatinine Ratio 23; Blood Urea Nitrogen 14 mg/dL (7-17); Calcium 8.2 mg/dL (8.4-10.2); Hemolysis Index 93
[2019-07-01 15:40] LABS: Alanine Aminotransferase 17 units/L (7-56)
[2019-07-01 20:21] VITALS: BP 110/69
--- NOTE | 2019-07-02 12:44 | Discharge Summary ---
Providers - Providers Date of Admission: 06/23/19 09:19 Date of discharge: 07/02/19 Attending physician: KRISTI ODELL 06/22/19 03:43 Occupational Therapy Evaluate and Treat [CONS] Routine Comment: Reason For Exam: Neuro deficits Physical Therapy Evaluation and Treat [CONS] Routine Comment: Reason For Exam: Neuro deficits 06/22/19 03:44 Consult to Physician [CONS] Routine Comment: Consulting Provider: DARIN SIFUENTES Physician Instructions: Reason For Exam: cva 06/23/19 07:59 Consult to Physician [CONS] Routine Comment: Consulting Provider: CLINTON BENJAMIN Physician Instructions: Reason For Exam: Altered mental status, neuritis, to r/o viral etio 06/26/19 17:23 Consult to Physician [CONS] Routine Comment: Consulting Provider: COURTNEY JUNG Physician Instructions: Reason For Exam: chest pain 06/27/19 08:59 Consult to Physician [CONS] Routine Comment: Consulting Provider: ROSY ALFRED Physician Instructions: Reason For Exam: Optic neuritis, follow up from Dr. Sifuentes 06/29/19 12:56 Consult to Physician [CONS] Routine Comment: Consulting Provider: KATHERINE DENNEY Physician Instructions: Reason For Exam: hypercoagulable 06/30/19 09:36 Consult to Physician [CONS] Routine Comment: Consulting Provider: MARIPOSA CORTES Physician Instructions: Reason For Exam: lactic acidosis persistent Primary care physician: [employer] Hospitalization Hospital course: 28 years old female with history of hypertension, obesity, hyperlipidemia, previous pulmonary embolism (she was on Eliquis) and recent CVA with residual right facial droop, decreased vision in the left eye, decreased hearing in the left ear, status post prolonged admission at 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 The patient was noted to have acute left eye blindness associated with the left hearing impairment and CSF pleocytosis. Patient was treated with IV steroids for acute optic neuritis. The patient was seen by neurology and infectious disease. Patient improved clinically with regards to her optic neuritis as well as radiographically. Neurology felt that her presentation both past and present was likely consistent with inflammation/demyelinization/prior ADEM with now exhibiting MS. MRI of the brain was negative for any new issues. Neurology recommended follow-up MRI brain in 2 to 3 months. Neurology also 1 further evaluation with oligoclonal's from an LP under fluoroscopy order. Patient was to continue treatment with IV steroids. Unfortunately, on the evening of 07/01/2019 patient left AMA. Please see nurses note for details. Dedicated discharge time 35 minutes. Disposition: [id number] LEFT AGAINST MED ADVICE Time spent for discharge: 35 Core Measure Documentation - Palliative Care Palliative Care/ Comfort Measures: Not Applicable - Core Measures Any of the following diagnoses?: none Exam - Constitutional Vitals: Temp Pulse Resp BP Pulse Ox 98.1 F 76 18 110/69 99 07/01/19 20:01 07/01/19 20:01 07/01/19 20:01 07/01/19 20:01 07/01/19 20:01 Plan Follow up with: PRIMARY MD ARIANA [Primary Care Provider] - 7 Days Forms: AMA Form
== END 2019-07-01 12:00 | disposition left against medical advice (07) | DRG 123 ==
LOC: ED 17:39 → 4A 06-22 00:59 → OBSVTOIN 06-23 09:19
PROVIDERS: ADMIT Internal Medicine; ATTEND Hospitalist
PROC: 009U3ZX Drainage of Spinal Canal, Percutaneous Approach, Diagnostic (ICD-10-PCS; principal; 2019-06-23)
PROC: B01B1ZZ Fluoroscopy of Spinal Cord using Low Osmolar Contrast (ICD-10-PCS; 2019-06-23)
PROC: 4A033R1 Measurement of Arterial Saturation, Peripheral, Percutaneous Approach (ICD-10-PCS; 2019-06-30)
DX: H46.9 Unspecified optic neuritis (principal); E87.2 Acidosis; I69.354 Hemiplegia and hemiparesis following cerebral infarction affecting left non-dominant side; I10 Essential (primary) hypertension; E66.01 Morbid (severe) obesity due to excess calories; I95.9 Hypotension, unspecified; D57.1 Sickle-cell disease without crisis; H54.40 Blindness, one eye, unspecified eye; Z68.34 Body mass index [BMI] 34.0-34.9, adult; Z86.711 Personal history of pulmonary embolism; Z79.01 Long term (current) use of anticoagulants; Z79.899 Other long term (current) drug therapy; Z82.49 Family history of ischemic heart disease and other diseases of the circulatory system
CPT/HCPCS: 36415; 36600; 62270; 70450; 70496; 70498; 70544; 70546; 70551; 70552; 70553; 71260; 71275; 72141; 77003; 80048; 80053; 80061; 82140; 82164; 82550; 82553; 82607; 82728; 82747; 82803; 82947; 82962; 83550; 83615; 83735; 83916; 84100; 84160; 84439; 84443; 84484; 84702; 85025; 85027; 85610; 85652; 85730; 86038; 86140; 86160; 86403; 86592; 86665; 86689; 87116; 87497; 87498; 87536; 87799; 89051; 93005; 93010; 93306; 93970; 95819; G0378; A9270-GY; A9577; C9113; J0133; J0696; J1650; J2930; J7030; J7050; J7510; J7512; Q9967